=== PATIENT | male | born 1960 | race Caucasian/White ===

== ENCOUNTER 2019-12-18 14:17 | Outpatient (CLI) | payer OTHER, MEDICARE ==
[2019-12-18] MEDS ORDERED: UREA 10% -AHA 4% CREAM 57 GM TUBE ONE (14:48)
== END 2019-12-18 23:59 ==
LOC: WOU 14:17
PROVIDERS: ATTEND Podiatrist Foot & Ankle Surgery
DX: E11.40 Type 2 diabetes mellitus with diabetic neuropathy, unspecified (principal); E11.51 Type 2 diabetes mellitus with diabetic peripheral angiopathy without gangrene; Z79.4 Long term (current) use of insulin; B35.1 Tinea unguium
CPT/HCPCS: 82962; G0463

== ENCOUNTER 2020-02-11 09:50 | Outpatient (CLI) | payer MEDICARE ==
[2020-02-11 11:26] LABS: BASOPHILS % (AUTO) 0.7 % (0.0-2.0); EOSINOPHILS % (AUTO) 1.9 % (0.0-6.0); HEMATOCRIT 40 % (39-51); HEMOGLOBIN 13.3 g/dL (13.5-17.5); LYMPHOCYTES % (AUTO) 16.8 % (20.0-44.0); MEAN CORPUSCULAR HGB CONC 33 g/dl (31.0-36.0); MEAN CORPUSCULAR VOLUME 89 fL (80-96); MONOCYTES # (AUTO) 0.5 /CMM (0.1-1.30); MONOCYTES % (AUTO) 8.4 % (2.0-12.0); NEUTROPHILS # (AUTO) 4.5 /CMM (1.8-8.9); NEUTROPHILS % (AUTO) 72.2 % (43.0-81.0); PLATELET COUNT (AUTO) 311 /CMM (150-450); RED BLOOD CELL COUNT(AUTO) 4.49 MIL/uL (4.5-6.0); WHITE BLOOD COUNT (AUTO) 6.2 K/uL (4.3-11.0)
[2020-02-11 11:46] LABS: APPEARANCE,URINE CLEAR (CLEAR); BILIRUBIN,URINE NEGATIVE (NEGATIVE); BLOOD, URINE TRACE-INTA Ery/uL (NEGATIVE); COLOR,URINE YELLOW (YELLOW); KETONES,URINE NEGATIVE (NEGATIVE); LEUKOCYTE ESTERASE ,URINE NEGATIVE (NEGATIVE); NITRITE, URINE NEGATIVE (NEGATIVE); PH,URINE 5.5 (5.0-8.0); PROTEIN,URINE 30 mg/dl (NEGATIVE); UGLUCOSE 500 MG/DL mg/dL (NEGATIVE); UROBILINOGEN,URINE 0.2 EU/dL (0.2)
[2020-02-11 12:04] LABS: URINE TOTAL PROTEIN 83.3 mg/dL (0-11.9)
[2020-02-11 12:07] LABS: BACTERIA,URINE None seen /HPF (None Seen); RBC,URINE 0-2 /HPF (0-2); SQUAMOUS EPITHELIAL CELL,UR Few /HPF (None Seen); WBC,URINE NONE SEEN /HPF (0-3)
[2020-02-11 12:26] LABS: C-REACTIVE PROTEIN 0.7 mg/dL (0.0-0.9); PROSTATE SPECIFIC ANTIGEN SCR 0.27 ng/mL (0.00-4.00); THYROID STIMULATING HORMONE 1.234 uIU/mL (0.358-3.74)
[2020-02-11 13:06] LABS: ALBUMIN 3.6 g/dL (3.4-5.0); BILIRUBIN,TOTAL 0.3 mg/dL (0.2-1.0); CALCIUM, SERUM 8.9 mg/dL (8.5-10.1); CREATININE 1.6 mg/dL (0.6-1.3); MAGNESIUM 2.3 mg/dL (1.8-2.4); PHOSPHORUS 3.3 mg/dL (2.5-4.9); POTASSIUM 3.7 mmol/L (3.5-5.1); TOTAL PROTEIN, SERUM 7.7 g/dL (6.4-8.2)
[2020-02-12 06:06] LABS: FOLIC ACID > 20.0 ng/mL (>3.0)
== END 2020-02-11 23:59 | disposition home or self-care (01) ==
LOC: MSC 09:50
PROVIDERS: ATTEND Internal Medicine
DX: M17.12 Unilateral primary osteoarthritis, left knee (principal); H10.12 Acute atopic conjunctivitis, left eye; E11.9 Type 2 diabetes mellitus without complications; Z79.84 Long term (current) use of oral hypoglycemic drugs; I10 Essential (primary) hypertension; F20.9 Schizophrenia, unspecified; I73.9 Peripheral vascular disease, unspecified; K27.9 Peptic ulcer, site unspecified, unspecified as acute or chronic, without hemorrhage or perforation; Z85.46 Personal history of malignant neoplasm of prostate; Z86.73 Personal history of transient ischemic attack (TIA), and cerebral infarction without residual deficits; Z79.01 Long term (current) use of anticoagulants; Z79.899 Other long term (current) drug therapy
CPT/HCPCS: 36415; 73560; 80053; 80061; 81001; 82306; 82607; 82746; 83036; 83735; 84100; 84153; 84155; 84439; 84443; 85025; 85652; 86140; G0463; 81000-TC

== ENCOUNTER → 2020-02-23 | Outpatient (CLI) | payer MEDICARE | END | disposition home or self-care (01) | LOC: MSC 14:30 | PROVIDERS: ATTEND Anesthesiology | DX: M17.12 Unilateral primary osteoarthritis, left knee (principal); M54.5 Low back pain; M62.830 Muscle spasm of back; G89.4 Chronic pain syndrome; M79.2 Neuralgia and neuritis, unspecified; E11.9 Type 2 diabetes mellitus without complications; I10 Essential (primary) hypertension; Z79.891 Long term (current) use of opiate analgesic; Z79.1 Long term (current) use of non-steroidal anti-inflammatories (NSAID) ==

== ENCOUNTER 2020-05-03 09:55 | Outpatient (CLI) | payer MEDICARE | END 2020-05-03 23:59 | disposition home or self-care (01) | LOC: MSC 09:55 | PROVIDERS: ATTEND Anesthesiology | DX: M17.12 Unilateral primary osteoarthritis, left knee (principal); M54.5 Low back pain; M62.830 Muscle spasm of back; G89.4 Chronic pain syndrome; M79.2 Neuralgia and neuritis, unspecified; E11.9 Type 2 diabetes mellitus without complications; Z79.891 Long term (current) use of opiate analgesic; Z79.1 Long term (current) use of non-steroidal anti-inflammatories (NSAID) ==

== ENCOUNTER 2020-05-05 10:20 | Outpatient (CLI) | payer MEDICARE | END 2020-05-05 23:59 | disposition home or self-care (01) | LOC: MSC 10:20 | PROVIDERS: ATTEND Internal Medicine | DX: M17.12 Unilateral primary osteoarthritis, left knee (principal); E11.9 Type 2 diabetes mellitus without complications; Z79.84 Long term (current) use of oral hypoglycemic drugs; I10 Essential (primary) hypertension; Z86.73 Personal history of transient ischemic attack (TIA), and cerebral infarction without residual deficits; Z79.01 Long term (current) use of anticoagulants; F20.9 Schizophrenia, unspecified; I73.9 Peripheral vascular disease, unspecified; K27.9 Peptic ulcer, site unspecified, unspecified as acute or chronic, without hemorrhage or perforation; Z85.46 Personal history of malignant neoplasm of prostate ==

== ENCOUNTER 2020-06-21 10:16 | Outpatient (CLI) | payer MEDICARE | END 2020-06-21 23:59 | disposition home or self-care (01) | LOC: MSC 10:16 | PROVIDERS: ATTEND Anesthesiology | DX: M17.12 Unilateral primary osteoarthritis, left knee (principal); M25.561 Pain in right knee; M76.31 Iliotibial band syndrome, right leg; M76.32 Iliotibial band syndrome, left leg; M54.5 Low back pain; M62.830 Muscle spasm of back; G89.4 Chronic pain syndrome; M79.2 Neuralgia and neuritis, unspecified; Z79.891 Long term (current) use of opiate analgesic; Z79.1 Long term (current) use of non-steroidal anti-inflammatories (NSAID) | CPT/HCPCS: 73560 ×2; G0463 ==

== ENCOUNTER 2020-06-28 08:50 | Outpatient (CLI) | payer MEDICARE | END 2020-06-28 23:59 | disposition home or self-care (01) | LOC: MSC 08:50 | PROVIDERS: ATTEND Anesthesiology | DX: M17.12 Unilateral primary osteoarthritis, left knee (principal); M54.5 Low back pain; M62.830 Muscle spasm of back; G89.4 Chronic pain syndrome; M79.2 Neuralgia and neuritis, unspecified; M76.31 Iliotibial band syndrome, right leg; M76.32 Iliotibial band syndrome, left leg; Z79.891 Long term (current) use of opiate analgesic; Z79.1 Long term (current) use of non-steroidal anti-inflammatories (NSAID) ==

== ENCOUNTER 2020-07-26 09:59 | Outpatient (CLI) | payer MEDICARE ==
[2020-07-26] MEDS ORDERED: APIX5TAB4 PO (13:26)
== END 2020-07-26 23:59 | disposition home or self-care (01) ==
LOC: MSC 09:59
PROVIDERS: ATTEND Anesthesiology
DX: M17.12 Unilateral primary osteoarthritis, left knee (principal); M76.32 Iliotibial band syndrome, left leg; M76.31 Iliotibial band syndrome, right leg; G89.4 Chronic pain syndrome; M79.2 Neuralgia and neuritis, unspecified; M54.5 Low back pain; M62.830 Muscle spasm of back; Z98.61 Coronary angioplasty status; Z79.1 Long term (current) use of non-steroidal anti-inflammatories (NSAID); Z79.891 Long term (current) use of opiate analgesic

== ENCOUNTER 2020-07-26 11:32 | Emergency (ER) | payer MEDICARE ==
[~2020-07-26] VITALS: Ht 162.6 cm; Wt 99.8 kg
--- NOTE | 2020-07-26 11:55 | NUR ---
BIBS TO ER BED 7. AAOX4. NOT IN RESP DISTRESS. AMBULATORY WITH A LIMP. CAME IN FOR A LEFT CALF PAIN THAT HAS BEEN GOING ON FOR MONTHS, PT DOES NOT EXACTLY KNOW HOW MANY. AGGREVATED WHEN WALKING AND TOUCHING. WAS AT THE BEDSIDE FOR EVAL. ORDERS RECEIVED.
--- NOTE | 2020-07-26 12:20 | NUR ---
US AT BEDSIDE
[2020-07-26 12:38] LABS: BASOPHILS # (AUTO) 0.1 /CMM (0.0-0.2); BASOPHILS % (AUTO) 1.1 % (0.0-2.0); EOSINOPHILS % (AUTO) 2.6 % (0.0-6.0); HEMATOCRIT 41 % (39-51); HEMOGLOBIN 13.4 g/dL (13.5-17.5); LYMPHOCYTES % (AUTO) 15.8 % (20.0-44.0); MEAN CORPUSCULAR HGB CONC 33 g/dl (31.0-36.0); MEAN CORPUSCULAR VOLUME 91 fL (80-96); MONOCYTES # (AUTO) 0.5 /CMM (0.1-1.30); MONOCYTES % (AUTO) 7.5 % (2.0-12.0); NEUTROPHILS # (AUTO) 4.8 /CMM (1.8-8.9); PLATELET COUNT (AUTO) 287 /CMM (150-450); RED BLOOD CELL COUNT(AUTO) 4.51 MIL/uL (4.5-6.0); WHITE BLOOD COUNT (AUTO) 6.6 K/uL (4.3-11.0)
--- NOTE | 2020-07-26 12:52 | NUR ---
DR. KEITH PAGED AT [phone]. AWAITING FOR CALL BACK.
[2020-07-26] MEDS ORDERED: APIX5TAB4 PO (13:26)
[2020-07-26 13:33] LABS: CREATININE 1.5 mg/dL (0.6-1.3); POTASSIUM 4.4 mmol/L (3.5-5.1)
--- NOTE | 2020-07-26 14:04 | NUR ---
Patient discharged to home in stable condition. Written and verbal after care instructions given. Patient verbalizes understanding of instruction. Pt ambulatory with a steady gait w/ an aide of a cane.
[2020-07-26 14:05] VITALS: BP 141/81
== END 2020-07-26 14:05 | disposition home or self-care (01) ==
LOC: ER 11:32
DX: I82.432 Acute embolism and thrombosis of left popliteal vein (principal); I10 Essential (primary) hypertension; E78.5 Hyperlipidemia, unspecified; E11.9 Type 2 diabetes mellitus without complications; Z79.899 Other long term (current) drug therapy
CPT/HCPCS: 36415; 80048-TC; 85025-TC; 85378-TC; 85652-TC; 86140-TC; 93970-TC

== ENCOUNTER 2020-08-18 10:46 | Outpatient (CLI) | payer MEDICARE ==
[~2020-08-18 10:46] MED LIST: APIX5TAB4 PO
[2020-08-18 12:10] LABS: BASOPHILS # (AUTO) 0.1 /CMM (0.0-0.2); BASOPHILS % (AUTO) 0.7 % (0.0-2.0); EOSINOPHILS % (AUTO) 1.5 % (0.0-6.0); HEMATOCRIT 42 % (39-51); HEMOGLOBIN 13.5 g/dL (13.5-17.5); LYMPHOCYTES # (AUTO) 0.7 /CMM (0.8-4.8); LYMPHOCYTES % (AUTO) 9.2 % (20.0-44.0); MEAN CORPUSCULAR HGB CONC 32 g/dl (31.0-36.0); MEAN CORPUSCULAR VOLUME 93 fL (80-96); MONOCYTES # (AUTO) 0.5 /CMM (0.1-1.30); MONOCYTES % (AUTO) 7.1 % (2.0-12.0); NEUTROPHILS % (AUTO) 81.5 % (43.0-81.0); PLATELET COUNT (AUTO) 282 /CMM (150-450); WHITE BLOOD COUNT (AUTO) 7.4 K/uL (4.3-11.0)
[2020-08-18 13:26] LABS: ALBUMIN 4.1 g/dL (3.4-5.0); BILIRUBIN,TOTAL 0.4 mg/dL (0.2-1.0); CREATININE 1.7 mg/dL (0.6-1.3); MAGNESIUM 2.5 mg/dL (1.8-2.4); PHOSPHORUS 4.2 mg/dL (2.5-4.9); POTASSIUM 5.1 mmol/L (3.5-5.1); TOTAL PROTEIN, SERUM 8.4 g/dL (6.4-8.2)
== END 2020-08-18 23:59 | disposition home or self-care (01) ==
LOC: MSC 10:46
PROVIDERS: ATTEND Internal Medicine
DX: S91.301A Unspecified open wound, right foot, initial encounter (principal); M17.12 Unilateral primary osteoarthritis, left knee; E11.9 Type 2 diabetes mellitus without complications; Z79.84 Long term (current) use of oral hypoglycemic drugs; I10 Essential (primary) hypertension; F20.0 Paranoid schizophrenia; K27.9 Peptic ulcer, site unspecified, unspecified as acute or chronic, without hemorrhage or perforation; I73.9 Peripheral vascular disease, unspecified; Z79.01 Long term (current) use of anticoagulants; Z85.46 Personal history of malignant neoplasm of prostate; Z86.73 Personal history of transient ischemic attack (TIA), and cerebral infarction without residual deficits; Z79.899 Other long term (current) drug therapy
CPT/HCPCS: 36415; 80053; 80061; 82607; 82746; 83036; 83735; 84100; 85025; G0463

== ENCOUNTER 2020-08-22 10:14 | Outpatient (CLI) | payer MEDICARE, MEDICAID | END 2020-08-22 23:59 | disposition home or self-care (01) | LOC: RAD 10:14 | PROVIDERS: ATTEND Podiatrist Foot & Ankle Surgery | DX: I70.201 Unspecified atherosclerosis of native arteries of extremities, right leg (principal); R60.0 Localized edema | CPT/HCPCS: 73630-TC ==

== ENCOUNTER 2020-09-20 09:06 | Outpatient (CLI) | payer MEDICARE, OTHER | END 2020-09-20 23:59 | disposition home or self-care (01) | LOC: MSC 09:06 | PROVIDERS: ATTEND Internal Medicine | DX: I82.4Z2 Acute embolism and thrombosis of unspecified deep veins of left distal lower extremity (principal); Z79.01 Long term (current) use of anticoagulants; K59.00 Constipation, unspecified; M17.12 Unilateral primary osteoarthritis, left knee; E11.9 Type 2 diabetes mellitus without complications; Z79.84 Long term (current) use of oral hypoglycemic drugs; E78.5 Hyperlipidemia, unspecified; I10 Essential (primary) hypertension; Z86.73 Personal history of transient ischemic attack (TIA), and cerebral infarction without residual deficits; F20.9 Schizophrenia, unspecified; Z85.46 Personal history of malignant neoplasm of prostate; H10.10 Acute atopic conjunctivitis, unspecified eye; K27.9 Peptic ulcer, site unspecified, unspecified as acute or chronic, without hemorrhage or perforation; Z79.899 Other long term (current) drug therapy ==

== ENCOUNTER 2020-09-27 09:00 | Outpatient (CLI) | payer MEDICARE, OTHER | END 2020-09-27 23:59 | disposition home or self-care (01) | LOC: MSC 09:00 | PROVIDERS: ATTEND Anesthesiology | DX: M17.12 Unilateral primary osteoarthritis, left knee (principal); M76.31 Iliotibial band syndrome, right leg; M76.32 Iliotibial band syndrome, left leg; G89.4 Chronic pain syndrome; M79.2 Neuralgia and neuritis, unspecified; M54.5 Low back pain; M62.830 Muscle spasm of back; Z95.5 Presence of coronary angioplasty implant and graft; Z79.01 Long term (current) use of anticoagulants; Z89.421 Acquired absence of other right toe(s); Z79.891 Long term (current) use of opiate analgesic; Z79.1 Long term (current) use of non-steroidal anti-inflammatories (NSAID); Z87.891 Personal history of nicotine dependence ==

== ENCOUNTER 2020-11-08 12:15 | Outpatient (CLI) | payer MEDICARE, OTHER | END 2020-11-08 23:59 | disposition home or self-care (01) | LOC: MSC 12:15 | PROVIDERS: ATTEND Anesthesiology | DX: G89.4 Chronic pain syndrome (principal); M76.31 Iliotibial band syndrome, right leg; M76.32 Iliotibial band syndrome, left leg; M79.2 Neuralgia and neuritis, unspecified; M17.12 Unilateral primary osteoarthritis, left knee; M62.830 Muscle spasm of back; M54.5 Low back pain; Z79.891 Long term (current) use of opiate analgesic; Z79.1 Long term (current) use of non-steroidal anti-inflammatories (NSAID) ==

== ENCOUNTER 2021-03-07 10:59 | Outpatient (CLI) | payer MEDICARE, OTHER | END 2021-03-07 23:59 | disposition home or self-care (01) | LOC: MSC 10:59 | PROVIDERS: ATTEND Anesthesiology | DX: G89.4 Chronic pain syndrome (principal); M54.50 Low back pain, unspecified; M62.830 Muscle spasm of back; M76.31 Iliotibial band syndrome, right leg; M76.32 Iliotibial band syndrome, left leg; M17.12 Unilateral primary osteoarthritis, left knee; Z79.891 Long term (current) use of opiate analgesic; M79.2 Neuralgia and neuritis, unspecified; Z89.421 Acquired absence of other right toe(s); Z98.61 Coronary angioplasty status; Z79.01 Long term (current) use of anticoagulants; Z87.891 Personal history of nicotine dependence ==

== ENCOUNTER 2021-04-04 08:38 | Outpatient (CLI) | payer MEDICARE, OTHER | END 2021-04-04 23:59 | disposition home or self-care (01) | LOC: MSC 08:38 | PROVIDERS: ATTEND Anesthesiology | DX: G89.4 Chronic pain syndrome (principal); M54.50 Low back pain, unspecified; M62.830 Muscle spasm of back; M76.31 Iliotibial band syndrome, right leg; M76.32 Iliotibial band syndrome, left leg; M17.12 Unilateral primary osteoarthritis, left knee; M79.2 Neuralgia and neuritis, unspecified; Z76.0 Encounter for issue of repeat prescription; Z79.891 Long term (current) use of opiate analgesic; Z89.421 Acquired absence of other right toe(s); Z98.61 Coronary angioplasty status; Z79.01 Long term (current) use of anticoagulants; Z87.891 Personal history of nicotine dependence ==

== ENCOUNTER 2022-01-11 00:30 | Inpatient (IN) | payer MEDICARE, OTHER ==
[~2022-01-11] VITALS: Ht 172.7 cm; Wt 69.4 kg
--- NOTE | 2022-01-11 00:45 | NUR ---
BIBRA 78 FOR C/O MORE ALTERED THAN NORMAL +NOT VERBAL. PT HAS ENCEPHOLOPATHY +TRACH AT BASELINE, HOW IS NORMALY VERBAL AT BASELINE. PT GCS OF 9 ([id number]) OPENS EYES SPONTANEOUSLY AND RESPONDS TO PAINFUL STIMULI. PT TOLERATING ROOM AIR WELL. CHANGED INTO GOWN AND PLACED ON MONITOR AND V/S WNL. WAS AT BEDSIDE FOR EVAL.
--- NOTE | 2022-01-11 00:47 | NUR ---
DECISION UNIT RN AT BEDSIDE
--- NOTE | 2022-01-11 00:53 | NUR ---
EMT AT BEDSIDE FOR EKG
--- NOTE | 2022-01-11 00:53 | NUR ---
URINE COLLECTED AND SENT TO LAB
--- NOTE | 2022-01-11 00:54 | NUR ---
POC BG 103
--- NOTE | 2022-01-11 01:17 | NUR ---
FORD COLLECTED AND SENT TO LAB
--- NOTE | 2022-01-11 01:22 | NUR ---
PT BEING TRANSPORTED TO CT VIA [facility]
[2022-01-11 01:26] LABS: BASOPHILS # (AUTO) 0.1 K/uL (0.0-0.2); BASOPHILS % (AUTO) 1.2 % (0.0-2.0); EOSINOPHILS % (AUTO) 5.4 % (0.0-6.0); HEMATOCRIT 36 % (39-51); HEMOGLOBIN 11.4 g/dL (13.5-17.5); LYMPHOCYTES # (AUTO) 1.4 K/uL (0.8-4.8); LYMPHOCYTES % (AUTO) 16.8 % (20.0-44.0); MEAN CORPUSCULAR HGB CONC 32 g/dl (31.0-36.0); MEAN CORPUSCULAR VOLUME 86 fL (80-96); MONOCYTES # (AUTO) 0.6 K/uL (0.1-1.30); MONOCYTES % (AUTO) 6.8 % (2.0-12.0); NEUTROPHILS # (AUTO) 5.8 K/uL (1.8-8.9); NEUTROPHILS % (AUTO) 69.8 % (43.0-81.0); PLATELET COUNT (AUTO) 425 K/uL (150-450); RED BLOOD CELL COUNT(AUTO) 4.15 MIL/uL (4.5-6.0); WHITE BLOOD COUNT (AUTO) 8.3 K/uL (4.3-11.0)
[2022-01-11 01:32] LABS: BILIRUBIN,URINE NEGATIVE (NEGATIVE); COLOR,URINE YELLOW (YELLOW); LEUKOCYTE ESTERASE ,URINE NEGATIVE (NEGATIVE); NITRITE, URINE NEGATIVE (NEGATIVE); PROTEIN,URINE TRACE mg/dl (NEGATIVE); UGLUCOSE NEGATIVE (NEGATIVE)
[2022-01-11 01:37] LABS: CALCIUM, SERUM 9.7 mg/dL (8.5-10.1); CARBON DIOXIDE 32 mmol/L (21-32); CHLORIDE 96 mmol/L (98-107); CREATININE 1.2 mg/dL (0.6-1.3); GLUCOSE 109 mg/dL (74-106); POTASSIUM 4.2 mmol/L (3.5-5.1); SODIUM SERUM 133 mmol/L (136-145); UREA NITROGEN, BLOOD 28 mg/dL (7-18)
--- NOTE | 2022-01-11 01:37 | NUR ---
BACK FROM CT
--- NOTE | 2022-01-11 01:49 | NUR ---
LACTIC 2.9. MADE AWARE.
[2022-01-11] MEDS ORDERED: CEFTRIAXONE 1GM BAG (ER ONLY) 50 ML IV ONE (01:51)
[2022-01-11 01:52] LABS: ALANINE AMINOTRANSFERASE 25 U/L (12-78); ALKALINE PHOSPHATASE 59 U/L (46-116); ASPARTATE AMINOTRANSFERASE 13 U/L (15-37); BILIRUBIN,DIRECT 0.1 mg/dL (0.0-0.2); BILIRUBIN,TOTAL 0.3 mg/dL (0.2-1.0)
[2022-01-11] MEDS ORDERED: CEFTRIAXONE 1GM BAG (ER ONLY) 1 GM/50 ML PIGGYBACK IV ONE (02:00)
[2022-01-11] MEDS ORDERED: AZITHROMYCIN 500 MG in IV D5W 250 ML IV ONE (02:00)
[2022-01-11] MEDS ORDERED: AZITHROMYCIN 500 MG VIAL ONE (02:02)
[2022-01-11] MEDS ORDERED: ONDANSETRON HCL/PF 4 MG/2 ML VIAL ONE (02:16)
[2022-01-11] MEDS ORDERED: ONDANSETRON HCL/PF 4 MG/2 ML VIAL IV ONE (02:30)
--- NOTE | 2022-01-11 03:09 | NUR ---
DR Elizabet LOVETT PAGED PER DR AYALA.
[2022-01-11] MEDS ORDERED: ASPI-1169 GT (03:16)
[2022-01-11] MEDS ORDERED: HEPA50007 SQ (03:34)
[2022-01-11] MEDS ORDERED: BISA10SU61 RC (03:34)
[2022-01-11] MEDS ORDERED: LATA2.5D2 EACHEYE (03:34)
[2022-01-11] MEDS ORDERED: CRAN3875 GT (03:34)
[2022-01-11] MEDS ORDERED: CHLO473M3 PO (03:34)
[2022-01-11] MEDS ORDERED: METO-295 GT (03:34)
[2022-01-11] MEDS ORDERED: IPRA4AER IH ×2 (03:34)
[2022-01-11] MEDS ORDERED: LEVE1000 GT (03:34)
[2022-01-11] MEDS ORDERED: METF-440 GT (03:34)
[2022-01-11] MEDS ORDERED: ATOR40TA GT (03:34)
[2022-01-11] MEDS ORDERED: INSU100V7 SQ (03:34)
[2022-01-11] MEDS ORDERED: QUET50TA GT (03:34)
[2022-01-11] MEDS ORDERED: LORA-259 GT (03:34)
[2022-01-11] MEDS ORDERED: LANS30CA54 GT (03:34)
[2022-01-11] MEDS ORDERED: INSU100V11 SQ (03:34)
[2022-01-11] MEDS ORDERED: NA P133E RC (03:34)
[2022-01-11] MEDS ORDERED: DOCU50LI GT (03:34)
[2022-01-11] MEDS ORDERED: LINA5TAB GT (03:34)
[2022-01-11] MEDS ORDERED: ASCO500C18 GT (03:34)
[2022-01-11] MEDS ORDERED: ACET-2605 GT (03:34)
[2022-01-11] MEDS ORDERED: METO50TA16 GT (03:34)
[2022-01-11] MEDS ORDERED: ACET325T53 GT ×2 (03:34)
[2022-01-11] MEDS ORDERED: LACO100T2 GT (03:34)
[2022-01-11] MEDS ORDERED: MAGN400O21 GT (03:34)
[2022-01-11] MEDS ORDERED: ONDA4TAB5 GT (03:34)
--- NOTE | 2022-01-11 06:13 | NUR ---
RT AT BEDSIDE
--- NOTE | 2022-01-11 08:00 | NUR ---
ASSUME CARE, DROWSY BUT EASILY ARISE.
--- NOTE | 2022-01-11 09:42 | NUR ---
NO DISTRESS NOTED, TRACH CARE PROVIDED AND SUCTION MOD AMT OF THICK YELLOWISH SECRETIONS.HOB ELEVATED AND MAINTAIN SAFE ENVIRONMENT
--- NOTE | 2022-01-11 12:00 | NUR ---
ADMITTED AND AWAITING BED AVAIL., RENDER PERICARE, SUCTION VIA TRACH AND ORAL CARE PROVIDED.
[2022-01-11] MEDS ORDERED: PIPERACILLIN /TAZOBACTAM 3.375 G VIAL IV ONE ×2 (13:15→23:52)
[2022-01-11] MEDS: ZOSYN IVPB 3.375 G in IV D5W 50ml IV SCH ×3 (13:29→23:57)
--- NOTE | 2022-01-11 13:30 | NUR ---
PHARMACIST NOTIFIED VANCOMYCIN NOT AVAIL.
[2022-01-11] MEDS ORDERED: VANCOMYCIN 1.5 GM in IV D5W 500ml IV ONE (14:00)
[2022-01-11 14:15] LABS: ABG BASE EXCESS 4.3 mmol/L; ABG PCO2 38.5 mmHg (35.0-45.0); ABG PH 7.479 (7.350-7.450); ABG PO2 139.3 mmHg (75.0-100.0); COHb 0.3 % (0.5-1.5); MetHb 0.3 % (0.0-1.5); O2Hb 98.1 % (94.0-97.0); SITE, ABG Right Radial; VENT MODE, BG TBAR 2L INLINE
--- NOTE | 2022-01-11 18:45 | NUR ---
GOT BED 304-2
--- NOTE | 2022-01-11 19:41 | NUR ---
REPORTED OFF TO INCOMING RN ASSUMING CARE.
--- NOTE | 2022-01-11 20:00 | NUR ---
REPORT GIVEN RALPH BLAKELY FOR SARWAT
[2022-01-11 20:09] VITALS: BP 150/93
[2022-01-11] MEDS ORDERED: NA PHOS,M-B/NA PHOS,DI-BA 1 EA ENEMA RC PRN (21:00)
[2022-01-11] MEDS ORDERED: LORAZEPAM 1 MG TABLET GT PRN (21:00)
[2022-01-11] MEDS ORDERED: MAGNESIUM HYDROXIDE 30 ML UDC GT PRN (21:00)
[2022-01-11] MEDS ORDERED: ACETAMINOPHEN ES 500 MG TABLET GT PRN (21:00)
[2022-01-11] MEDS ORDERED: BISACODYL SUPP (10 MG) 10 MG/SUPP.RECT SUPP.RECT RC PRN (21:00)
[2022-01-11] MEDS ORDERED: IPRATROPIUM/ALBUTEROL INHALER IH PRN (21:30)
[2022-01-11] MEDS ORDERED: ONDANSETRON 4 MG TAB.RAPDIS GT PRN (21:30)
--- NOTE | 2022-01-11 22:00 | NUR ---
ADMISSION NOTES PATIENT BROUGHT UP IN UNIT AT @2009 VIA STRETCHER ACCOMPANIED BY 2 ER PERSONNELS. T-PIECE (PORTEX 7) NOTED CONNECTED TO 2LPM OF O2 WITH AEROSOL. PATIENT IS A/OX2-3, NON-VERBAL BUT MOUTHS OUT WORDS AND NODS FOR COMMUNICATION. FOLLOWS COMMANDS. NO S/S OF APPARENT DISTRESS AND DENIES PAIN NOR DISCOMFORT FOR NOW. PER PATIENT HE USED TO SMOKE BUT DENIES DRINKING ALCOHOL. D/T PATIENT CONDITION I CALLED SISTER FOR FURTHER ADMISSION QUESTIONS. PER SISTER, DORI RAYMUNDO, # , THEY WISHED FOR PATIENT TO BE FULL CODE, AND PER HER PATIENT DOESN'T HAVE ANY LEGAL DOCUMENTATIONS AND NEED TO TALK TO [facility] ABOUT IT-- SW CONSULT FOR ADVANCED DIRECTIVE ORDERED. PER SISTER, PATIENT IS VACCINATED WITH COVID BUT UNSURE IF HE HAD THE BOOSTER SHOTS-- PER SISTER SHE WILL NEED TO F/U WITH SNF ABOUT BOOSTER, PNEUMONIA, AND FLU. PATIENT HAS G-TUBE IN PLACE INTACT AND PATENT. IV ACCESS ON L. FA #20G NOTED TO BE INTACT AND PATENT WELL. PATIENT SKIN INTACT WITH OLD SCAR ON HIS SACRAL AREA. ONLY BELONGINGS IS HIS HELMET. TELE MONITOR READING SR WITH 98 BPM. ORIENTED IN THE UNIT AND THE USE OF CALL LIGHT. SAFETY IN PLACE. ADMISSION V/S FOLLOWS: 150/93, HR-102, RR-19, T-98.6, SATURATION 95%, WT- 153.4 LBS. WILL FOLLOW THROUGH DOCTOR'S ORDERS AND CONTINUE WITH PLAN OF CARE FOR PATIENT.
[2022-01-11] MEDS: METOCLOPRAMIDE HCL 10 MG TABLET GT SCH (23:03)
[2022-01-11] MEDS: LEVETIRACETAM SOL (5 ML) 100 MG/ML UDC GT SCH (23:03)
[2022-01-11] MEDS: LACOSAMIDE ORAL SOLN 50 MG/5 ML UDC GT SCH (23:04)
[2022-01-11] MEDS: ATORVASTATIN 40 MG TABLET GT SCH (23:04)
[2022-01-11] MEDS: HEPARIN SODIUM, PORCINE 5000 UNITS/1 ML VIAL SQ SCH (23:05)
[2022-01-11] MEDS: INSULIN GLARGINE, 100 UNIT/ML CARTRIDGE SQ SCH (23:09)
[2022-01-11] MEDS: IV D5/ 0.9% NACL 1,000 ML IV PRN (23:14)
[2022-01-12] VITALS: BP 126/82
[2022-01-12] MEDS: IPRATROPIUM/ALBUTEROL INHALER IH SCH ×3 (01:30→13:30)
[2022-01-12] MEDS ORDERED: VANCOMYCIN 1 GM VIAL ONE (02:12)
[2022-01-12] MEDS: VANCOMYCIN 1 GM in IV D5W 250ml IV SCH ×2 (02:20→14:36)
[2022-01-12 04:00] VITALS: BP 149/95
[2022-01-12] MEDS ORDERED: PIPERACILLIN /TAZOBACTAM 3.375 G VIAL IV ONE (05:54)
[2022-01-12] MEDS: ZOSYN IVPB 3.375 G in IV D5W 50ml IV SCH ×3 (06:00→17:23)
[2022-01-12 06:32] LABS: BASOPHILS # (AUTO) 0.1 K/uL (0.0-0.2); BASOPHILS % (AUTO) 0.9 % (0.0-2.0); EOSINOPHILS % (AUTO) 3.3 % (0.0-6.0); HEMATOCRIT 34 % (39-51); HEMOGLOBIN 11.1 g/dL (13.5-17.5); LYMPHOCYTES # (AUTO) 1.3 K/uL (0.8-4.8); LYMPHOCYTES % (AUTO) 14.6 % (20.0-44.0); MEAN CORPUSCULAR HGB CONC 32 g/dl (31.0-36.0); MEAN CORPUSCULAR VOLUME 85 fL (80-96); MONOCYTES # (AUTO) 0.7 K/uL (0.1-1.30); MONOCYTES % (AUTO) 8.3 % (2.0-12.0); NEUTROPHILS # (AUTO) 6.4 K/uL (1.8-8.9); NEUTROPHILS % (AUTO) 72.9 % (43.0-81.0); PLATELET COUNT (AUTO) 482 K/uL (150-450); RED BLOOD CELL COUNT(AUTO) 4.06 MIL/uL (4.5-6.0); WHITE BLOOD COUNT (AUTO) 8.8 K/uL (4.3-11.0)
[2022-01-12 06:53] LABS: CALCIUM, SERUM 9.6 mg/dL (8.5-10.1); CREATININE 1.2 mg/dL (0.6-1.3); MAGNESIUM 2.2 mg/dL (1.8-2.4); PHOSPHORUS 3.4 mg/dL (2.5-4.9); POTASSIUM 3.8 mmol/L (3.5-5.1)
[2022-01-12] MEDS ORDERED: PREVACID (NF) 30 MG TAB GT SCH (07:30)
--- NOTE | 2022-01-12 07:46 | NUR ---
REPORT GIVEN TO REDDY CASTELLANOS FOR CONTINUITY OF CARE.
--- NOTE | 2022-01-12 07:48 | NUR ---
RN OPENING NOTES RECEIVED PATIENT IN BED, ASLEEP, EASILY AROUSED. NO SIGNS OF ACUTE DISTRESS NOTED. PATIENT NOTED WITH T-PIECE ON PERRY AEROSOL, NO SOB NOTED, BREATHING EVEN AND UNLABORED. DENIES PAIN AT THIS TIME. NOTED WITH IV ACCESS ON LEFT FORE ARM #22G, INTACT AND PATENT WITH D5NS @50 ML/HR RUNNING. ON TELE MONITOR SHOWING SINUS RHYTHM WITH BBB, HR @100. NO S/SX OF CARDIAC DISTRESS NOTED. WITH G-TUBE INTACT AND PATENT, POSITIVE PLACEMENT, NO RESIDUAL NOTED. ASPIRATIONS PRECAUTIONS IN PLACE. SAFETY MEASURE IN PLACE. HOB ELEVATED, BED IN LOWEST AND LOCKED POSITION, SIDE RAILS UP X4, CALL LIGHT PLACED WITHIN EASY REACH. WILL CONTINUE TO MONITOR PATIENT.
[2022-01-12 08:39] VITALS: BP 139/88
[2022-01-12] MEDS ORDERED: GLUCERNA 1.5 1,000 ML BOTTLE NG PRN (09:00)
[2022-01-12] MEDS: LACOSAMIDE ORAL SOLN 50 MG/5 ML UDC GT SCH ×2 (09:20→21:20)
[2022-01-12] MEDS: METFORMIN 500 MG TABLET GT SCH ×2 (09:21→16:40)
[2022-01-12] MEDS: LEVETIRACETAM SOL (5 ML) 100 MG/ML UDC GT SCH ×2 (09:21→21:19)
[2022-01-12] MEDS: LINAGLIPTIN 5 MG TABLET GT SCH (09:21)
[2022-01-12] MEDS: DOCUSATE SODIUM LIQ 100 MG/10 ML UDC GT SCH (09:21)
[2022-01-12] MEDS: METOCLOPRAMIDE HCL 10 MG TABLET GT SCH ×4 (09:21→21:20)
[2022-01-12] MEDS: QUETIAPINE FUMARATE 25 MG TABLET GT SCH ×2 (09:21→21:20)
[2022-01-12] MEDS: CHLORHEXIDINE GLUCONATE 15 ML UDC MM SCH ×2 (09:21→16:40)
[2022-01-12] MEDS: ASCORBIC ACID 500 MG TABLET GT SCH (09:22)
[2022-01-12] MEDS: ASPIRIN 81 MG TAB.CHEW GT SCH (09:22)
[2022-01-12] MEDS: METOPROLOL TARTRATE 50 MG TABLET GT SCH ×2 (09:22→16:40)
[2022-01-12] MEDS: HEPARIN SODIUM, PORCINE 5000 UNITS/1 ML VIAL SQ SCH ×2 (09:25→21:18)
[2022-01-12] MEDS ORDERED: GLUCERNA 1.2 1,000 ML BOTTLE GT PRN (09:30)
[2022-01-12] MEDS: PANTOPRAZOLE 40 MG/PACK PACK GT SCH (10:17)
[2022-01-12] MEDS: GLUCERNA 1.5 1,000 ML BOTTLE NG PRN (11:53)
[2022-01-12 12:10] VITALS: BP 141/78
--- NOTE | 2022-01-12 15:51 | NUR ---
RT PT DOESNT WANT TO WEAR COOL AEROSOL TBAR WANT TO BE ON ROOM AIR, [place] WE[place] SP02 > 94% WILL KEEP ON CA PRN
[2022-01-12 16:21] VITALS: BP 128/78
[2022-01-12] MEDS ORDERED: LATANOPROST EYE DROP 0.005% 2.5 ML BOTTLE EACHEYE SCH (18:00)
--- NOTE | 2022-01-12 18:42 | NUR ---
RN CLOSING NOTES PATIENT IN BED, ASLEEP, EASILY AROUSED. NO SIGNS OF ACUTE DISTRESS NOTED. PATIENT NOTED WITH T-PIECE(PORTEX 7) ON ROOM AIR. NO SOB NOTED, BREATHING EVEN AND UNLABORED. SUCTIONED SECRETIONS NEEDED. DENIED ANY PAIN OR DISCOMFORT. IV ACCESS ON LEFT FOREARM #20G, INTACT AND PATENT WITH D5NS @50 ML/HR RUNNING. ON TELE MONITOR SHOWING SINUS RHYTHM, HR @ 82. NO S/SX OF CARDIAC DISTRESS NOTED. WITH G-TUBE INTACT AND PATENT, POSITIVE PLACEMENT, NO RESIDUAL NOTED. GTUBE FEEDING OF GLUCERNA 1.5 @30ML/HR RUNNING, TOLERATING WELL. ASPIRATIONS PRECAUTIONS IN PLACE. SAFETY MEASURE IN PLACE. HOB ELEVATED, BED IN LOWEST AND LOCKED POSITION, SIDE RAILS UP X4, CALL LIGHT PLACED WITHIN EASY REACH. WILL ENDORSE TO NEXT SHIFT FOR CONTINUITY OF CARE.
--- NOTE | 2022-01-12 19:36 | NUR ---
RN OPENING NOTES RECEIVED PATIENT IN BED AOX2.WITH T-PIECE ON PERRY AEROSOL, NO SOB/DISTRESS NOTED,BREATHING EVEN AND UNLABORED.IV ACCESS ON RIGHT WRIST 20G INTACT AND PATENT WITH D5NS @50 ML/HR RUNNING. WITH G-TUBE FEEDING GLUCERNA 1.2 @30ML/HR [place] WELL.NO RESIDUAL NOTED. ASPIRATIONS PRECAUTIONS IN PLACE. SAFETY MEASURE IN PLACE. HOB ELEVATED, BED IN LOWEST AND LOCKED POSITION, SIDE RAILS UP X4, CALL LIGHT PLACED WITHIN EASY REACH. W
[2022-01-12 20:00] VITALS: BP 121/64
[2022-01-12] MEDS: ATORVASTATIN 40 MG TABLET GT SCH (21:20)
[2022-01-12] MEDS: INSULIN GLARGINE, 100 UNIT/ML CARTRIDGE SQ SCH (22:50)
[2022-01-13] VITALS: BP 122/81
[2022-01-13] MEDS: ZOSYN IVPB 3.375 G in IV D5W 50ml IV SCH ×5 (00:27→23:46)
[2022-01-13] MEDS: VANCOMYCIN 1 GM in IV D5W 250ml IV SCH (02:00)
--- NOTE | 2022-01-13 02:09 | NUR ---
RN NOTES; VANCOMYCIN HOLD DUE TO VANCO TROUGH LEVEL 23.
[2022-01-13] MEDS: IV D5/ 0.9% NACL 1,000 ML IV PRN (03:32)
[2022-01-13 04:00] VITALS: BP 135/77
[2022-01-13 06:12] LABS: BASOPHILS # (AUTO) 0.1 K/uL (0.0-0.2); EOSINOPHILS % (AUTO) 5.6 % (0.0-6.0); HEMATOCRIT 36 % (39-51); HEMOGLOBIN 11.4 g/dL (13.5-17.5); LYMPHOCYTES # (AUTO) 1.3 K/uL (0.8-4.8); LYMPHOCYTES % (AUTO) 20.3 % (20.0-44.0); MEAN CORPUSCULAR HGB CONC 32 g/dl (31.0-36.0); MEAN CORPUSCULAR VOLUME 86 fL (80-96); MONOCYTES # (AUTO) 0.6 K/uL (0.1-1.30); MONOCYTES % (AUTO) 9.1 % (2.0-12.0); NEUTROPHILS # (AUTO) 4.1 K/uL (1.8-8.9); PLATELET COUNT (AUTO) 441 K/uL (150-450); RED BLOOD CELL COUNT(AUTO) 4.17 MIL/uL (4.5-6.0); WHITE BLOOD COUNT (AUTO) 6.5 K/uL (4.3-11.0)
--- NOTE | 2022-01-13 06:15 | NUR ---
RN OPENING NOTES; PATIENT IN BED AOX2.WITH 2L O2 VIA TRACH ON PERRY AEROSOL [place] WELL,NO SOB/DISTRESS NOTED,BREATHING EVEN AND UNLABORED.DUE MEDS GIVEN ORDER,ALL NEEDS ATTENDED,IV ACCESS ON RIGHT WRIST 20G INTACT AND PATENT WITH D5NS @50 ML/HR RUNNING. WITH G-TUBE FEEDING GLUCERNA 1.2 @30ML/HR [place] WELL.NO RESIDUAL NOTED. ASPIRATIONS PRECAUTIONS IN PLACE.HOB ELEVATED AT ALL TIME,SAFETY MEASURE IN PLACE. BED IN LOWEST AND LOCKED POSITION, SIDE RAILS UP X4, CALL LIGHT PLACED WITHIN EASY REACH. WILL ENDORSED TO NEXT SHIFT.
[2022-01-13 06:45] LABS: CALCIUM, SERUM 9.5 mg/dL (8.5-10.1); CREATININE 1.2 mg/dL (0.6-1.3); MAGNESIUM 2.2 mg/dL (1.8-2.4); PHOSPHORUS 3.7 mg/dL (2.5-4.9); POTASSIUM 3.3 mmol/L (3.5-5.1)
--- NOTE | 2022-01-13 07:30 | NUR ---
RN OPENING NOTES RECEIVED PATIENT ON BED AWAKE AND A/O X2. ON ROOM AIR TOLERATING WELL. PATIENT REFUSED FOR COOL AEROSOL INHALATION. REFUSED TELE MONITOR. WITH NO COMPLAINTS OF PAIN OR DISCOMFORT AT THIS TIME. WITH IV ACCESS AT THE RIGHT WRIST G20, SALINE LOCKED, PATENT AND INTACT. ON GLUCERNA 1.2 FEEDING AT 50ML/HR VIA G-TUBE TOLERATING WELL. SAFETY MEASURES IN PLACED. CALL LIGHT WITHIN REACH. BED ON LOWEST LOCKED POSITION, SIDE RAILS UP X2. WILL CONTINUE TO MONITOR.
[2022-01-13 08:00] VITALS: BP 130/79
[2022-01-13] MEDS: CHLORHEXIDINE GLUCONATE 15 ML UDC MM SCH ×2 (08:24→16:45)
[2022-01-13] MEDS: DOCUSATE SODIUM LIQ 100 MG/10 ML UDC GT SCH (08:24)
[2022-01-13] MEDS: LEVETIRACETAM SOL (5 ML) 100 MG/ML UDC GT SCH ×2 (08:25→20:54)
[2022-01-13] MEDS: LINAGLIPTIN 5 MG TABLET GT SCH (08:26)
[2022-01-13] MEDS: METFORMIN 500 MG TABLET GT SCH ×2 (08:26→16:45)
[2022-01-13] MEDS: METOCLOPRAMIDE HCL 10 MG TABLET GT SCH ×4 (08:26→20:54)
[2022-01-13] MEDS: PANTOPRAZOLE 40 MG/PACK PACK GT SCH (08:27)
[2022-01-13] MEDS: ASPIRIN 81 MG TAB.CHEW GT SCH (08:27)
[2022-01-13] MEDS: QUETIAPINE FUMARATE 25 MG TABLET GT SCH ×2 (08:27→20:54)
[2022-01-13] MEDS: ASCORBIC ACID 500 MG TABLET GT SCH (08:27)
[2022-01-13] MEDS: LACOSAMIDE ORAL SOLN 50 MG/5 ML UDC GT SCH ×2 (08:27→20:54)
[2022-01-13] MEDS: METOPROLOL TARTRATE 50 MG TABLET GT SCH ×2 (08:27→16:46)
[2022-01-13] MEDS: HEPARIN SODIUM, PORCINE 5000 UNITS/1 ML VIAL SQ SCH ×2 (08:30→20:56)
[2022-01-13] MEDS ORDERED: ALBUTEROL FS 2.5 MG/0.5 ML VIAL.NEB NEB PRN (09:00)
[2022-01-13 09:48] LABS: BILIRUBIN,DIRECT 0.1 mg/dL (0.0-0.2); BILIRUBIN,TOTAL 0.3 mg/dL (0.2-1.0)
[2022-01-13] MEDS: VANCOMYCIN HCL 0.75 GM in IV D5W 250 ML IV SCH ×2 (11:03→21:54)
[2022-01-13] MEDS: POTASSIUM CHLORIDE 20 MEQ POWDER PACKET GT SCH ×2 (12:19→14:25)
[2022-01-13] MEDS ORDERED: IPRATROPIUM NEB FS 0.5 MG/2.5 ML AMPUL.NEB NEB SCH (13:30)
[2022-01-13] MEDS: ALBUTEROL FS 2.5 MG/0.5 ML VIAL.NEB NEB SCH ×2 (13:43→19:30)
--- NOTE | 2022-01-13 14:03 | NUR ---
PATIENT NOT ALLOWING C/A BUT ALLOWED ME TO GIVE TREATMENT. PATIENT WERE FOUND ON R/A RESTING COMFORTABLY Addendum: 01/13/22 at 1404 by MORRO MCPHERSON RT Amended: Links added.
[2022-01-13 15:49] VITALS: BP 137/75
[2022-01-13] MEDS: GLUCERNA 1.5 1,000 ML BOTTLE NG PRN (17:35)
[2022-01-13] MEDS: LATANOPROST EYE DROP 0.005% 2.5 ML BOTTLE EACHEYE SCH (18:00)
--- NOTE | 2022-01-13 18:22 | NUR ---
TRACTOR OPERATOR BATTERY CLOSING NOTES RECEIVED PATIENT ON BED AWAKE AND A/O X2. ON ROOM AIR TOLERATING WELL. PATIENT REFUSED FOR COOL AEROSOL INHALATION. ON TELE MONITOR CURRENTLY READING SINUS RHYTHM AT 84BPM. WITH NO COMPLAINTS OF PAIN OR DISCOMFORT AT THIS TIME. WITH IV ACCESS AT THE RIGHT WRIST G20 WITH IVF D5 NS AT 50ML/HR INFUSING WELL. ON GLUCERNA 1.2 FEEDING AT 60ML/HR VIA G-TUBE TOLERATING WELL. DUE MEDS GIVEN. SAFETY MEASURES IN PLACED. CALL LIGHT WITHIN REACH. BED ON LOWEST LOCKED POSITION, SIDE RAILS UP X2. WILL ENDORSE TO NEXT SHIFT FOR SARWAT.
[2022-01-13 20:00] VITALS: BP 141/67
--- NOTE | 2022-01-13 20:00 | NUR ---
RECEIVED PATIENT IN BED, ALERT/ORIENTED X1, GARBLED SPEECH DUE TO TRACH, REFUSING 2LPM VIA T-PIECE, COMBATIVE, UNCOOPERATIVE, HOSTILE, HITTING STAFF, PEG TUBE FEEDING, GLUCERNA 1.5 AT 55 ML/HR, GOAL IS 60 ML/HR, CHECKED PLACEMENT, ZERO RESIDUAL. TOLERATING ROOM AIR, 97% SPO2, SUCTIONED PRN, THICK SPUTUM. KEPT HOB ELEVATED, ASPIRATION PRECAUTION, FALL PRECAUTION, WILL CONTINUE TO MONITOR.
[2022-01-13] MEDS: ATORVASTATIN 40 MG TABLET GT SCH (21:11)
[2022-01-13] MEDS ORDERED: INSULIN GLARGINE, 100 UNIT/ML CARTRIDGE SQ ONE (23:06)
[2022-01-13] MEDS: INSULIN GLARGINE, 100 UNIT/ML CARTRIDGE SQ SCH (23:29)
[2022-01-14] VITALS: BP 122/65
[2022-01-14] MEDS: ALBUTEROL FS 2.5 MG/0.5 ML VIAL.NEB NEB SCH ×4 (01:30→20:13)
[2022-01-14 04:00] VITALS: BP 136/78
[2022-01-14] MEDS: ZOSYN IVPB 3.375 G in IV D5W 50ml IV SCH (06:10)
[2022-01-14 06:30] LABS: CALCIUM, SERUM 9.2 mg/dL (8.5-10.1); CREATININE 1.1 mg/dL (0.6-1.3); POTASSIUM 3.6 mmol/L (3.5-5.1)
--- NOTE | 2022-01-14 07:27 | NUR ---
ALERT/ORIENTED X2, REFUSING 2LPM VIA COOL AEROSOL, SPO2 AT ROOM AIR 96%,TRACH, PORTEX 7. REFUSING BREATHING TREATMENT, GLUCERNA AT 60 ML/HR, ACHIEVED GOAL, FEEDING TOLERATING WELL, NO RESIDUAL, COMBATIVE AT TIMES, PULLING IV LINE AND PEG TUBE, BILATERAL MITTENS APPLIED. CONTINUE RESTRAINTS MONITORING, VANCOMYCIN AND ZOSYN, D5NS AT 50 ML/HR, FALL PRECAUTION, ASPIRATION PRECAUTION, SUCTION PRN.
--- NOTE | 2022-01-14 07:45 | NUR ---
RN OPENING NOTES RECEIVED PATIENT ON BED ASLEEP, A/O X1. ON ROOM AIR TOLERATING WELL, O2 SAT 96%. PATIENT REFUSED FOR COOL AEROSOL INHALATION. NO COMPLAINTS OF PAIN OR DISCOMFORT AT THIS TIME. TELE MONITOR READING SR -98BPM. IV ACCESS AT THE RIGHT WRIST G20, RUNNING D5NS @ 50ML/HR. ON GLUCERNA 1.2 FEEDING AT 60ML/HR VIA G-TUBE TOLERATING WELL. SAFETY MEASURES IN PLACE; CALL LIGHT WITHIN REACH. BED ON LOWEST LOCKED POSITION, SIDE RAILS UP X2. WILL CONTINUE WITH PLAN OF CARE. Addendum: 01/14/22 at 1101 by DEAN ENG RN PAIN ASSESSED USING FLACC, 0/10
[2022-01-14 08:00] VITALS: BP 130/73
[2022-01-14] MEDS: VANCOMYCIN HCL 0.75 GM in IV D5W 250 ML IV SCH (08:42)
[2022-01-14] MEDS: QUETIAPINE FUMARATE 25 MG TABLET GT SCH ×2 (08:43→21:38)
[2022-01-14] MEDS: CHLORHEXIDINE GLUCONATE 15 ML UDC MM SCH ×2 (08:43→16:23)
[2022-01-14] MEDS: ASPIRIN 81 MG TAB.CHEW GT SCH (08:44)
[2022-01-14] MEDS: ASCORBIC ACID 500 MG TABLET GT SCH (08:44)
[2022-01-14] MEDS: LEVETIRACETAM SOL (5 ML) 100 MG/ML UDC GT SCH ×2 (08:44→21:38)
[2022-01-14] MEDS: DOCUSATE SODIUM LIQ 100 MG/10 ML UDC GT SCH (08:44)
[2022-01-14] MEDS: METOCLOPRAMIDE HCL 10 MG TABLET GT SCH ×4 (08:44→21:38)
[2022-01-14] MEDS: LINAGLIPTIN 5 MG TABLET GT SCH (08:44)
[2022-01-14] MEDS: METOPROLOL TARTRATE 50 MG TABLET GT SCH ×2 (08:47→16:25)
[2022-01-14] MEDS: METFORMIN 500 MG TABLET GT SCH ×2 (08:49→16:23)
[2022-01-14] MEDS: HEPARIN SODIUM, PORCINE 5000 UNITS/1 ML VIAL SQ SCH ×2 (08:52→21:48)
[2022-01-14] MEDS: PANTOPRAZOLE 40 MG/PACK PACK GT SCH (09:38)
[2022-01-14 12:00] VITALS: BP 121/69
[2022-01-14] MEDS: LACOSAMIDE ORAL SOLN 50 MG/5 ML UDC GT SCH ×2 (12:30→21:57)
--- NOTE | 2022-01-14 12:41 | NUR ---
MS RN NOTES: RETURNED EXTRA DOSE OF LACOSAMIDE WITH RN WITNESS.
[2022-01-14] MEDS: IV D5/ 0.9% NACL 1,000 ML IV PRN (13:32)
[2022-01-14 17:00] VITALS: BP 109/64
[2022-01-14] MEDS: LATANOPROST EYE DROP 0.005% 2.5 ML BOTTLE EACHEYE SCH (18:16)
[2022-01-14] MEDS: GLUCERNA 1.5 1,000 ML BOTTLE NG PRN (18:41)
--- NOTE | 2022-01-14 18:45 | NUR ---
CERTIFIED DENTAL ASSISTANT CLOSING NOTES: RECEIVED PATIENT ON BED ASLEEP, A/O X1. HAS ORDER T-PIECE AEROSOL 2L O2 BUT PT REFUSED, PLACED ON ROOM AIR TOLERATING WELL, O2 SAT 96%, NO S/S OF SOB AR ACUTE DISTRESS AT THE MOMENT. PAIN ASSESSED USING FLACC, 0/10. TELE MONITOR READING SR WITH BBB, HR- 77 BPM. IV ACCESS AT THE RIGHT WRIST G20, RUNNING D5NS @ 50ML/HR. ON GLUCERNA 1.2 FEEDING AT 60ML/HR VIA G-TUBE TOLERATING WELL. MADE COMFORTABLE, CLEAN AND DRY. SAFETY MEASURES IN PLACE; CALL LIGHT WITHIN REACH. BED ON LOWEST LOCKED POSITION, SIDE RAILS UP X2, WILL ENDORSE TO PM SHIFT.
--- NOTE | 2022-01-14 19:30 | NUR ---
CASINO CHANGE ATTENDANT OPENING NOTE RECEIVED PATIENT AWAKE IN BED. A/O X1 AND ABLE TO MAKE NEEDS KNOWN BY SHAKING AND NODDING HEAD. T-PIECE AEROSOL 2L O2, TOLERATING WELL. NO SOB OR S/S OF RESPIRATORY DISTRESS. ON EXTERNAL CULINARY MANAGER READING SR HR 82 BPM. IV ACCESS RIGHT WRIST G20, RUNNING D5NS @ 50ML/HR. ON GLUCERNA 1.2 FEEDING @ 60ML/HR VIA G-TUBE, TOLERATING WELL. WITH BILATERAL MITTEN RESTRAINTS, NOTED WITH GOOD CIRCULATION. SAFETY PRECAUTIONS IN PLACE. BED IN LOWEST LOCKED POSITION, HOB ELEVATED, SIDE RAILS UP X3, CALL LIGHT AND TABLE WITHIN REACH. ALL NEEDS MET AT THIS TIME.
[2022-01-14 20:00] VITALS: BP 126/90
[2022-01-14] MEDS: ATORVASTATIN 40 MG TABLET GT SCH (21:38)
--- NOTE | 2022-01-14 22:00 | NUR ---
Pt recvd awake on room air with portex 7 trach that is patent, midline and secured. neb tx given and osmel well. suction PRN and trach care done. Spo2 >92% maintained. placed pt on CA after neb tx, but pt continues to remove it. No SOB or respiratory distress noted. Spare trach and ambu bag at bedside.
[2022-01-14] MEDS: INSULIN GLARGINE, 100 UNIT/ML CARTRIDGE SQ SCH (22:17)
[2022-01-15] VITALS: BP 162/85
[2022-01-15] MEDS: BLOOD SUGAR DIAGNOSTIC 1 EACH STRIP IN SCH ×4 (00:41→17:56)
--- NOTE | 2022-01-15 00:45 | NUR ---
RN NOTE PT NOTED WITH BP 162/85 WHEN VITAL SIGNS WERE DONE AT MIDNIGHT. RECHECKED VITAL SIGNS AT THIS TIME. CURRENT READING BP 134/63 HR 79 R 20 TEMP 97.8 O2 SAT 100% ON 2 LPM VIA T PIECE. NO S/S OF ACUTE DISTRESS NOTED. ALL NEEDS MET AT THIS TIME.
[2022-01-15] MEDS: ALBUTEROL FS 2.5 MG/0.5 ML VIAL.NEB NEB SCH ×4 (01:56→20:03)
[2022-01-15 04:00] VITALS: BP 154/93
--- NOTE | 2022-01-15 06:37 | NUR ---
TRANSIT PLANNING DIRECTOR CLOSING NOTE PATIENT AWAKE IN BED. A/O X1 AND ABLE TO MAKE NEEDS KNOWN BY SHAKING AND NODDING HEAD. T-PIECE AEROSOL 2L O2, TOLERATING WELL. NO SOB OR S/S OF RESPIRATORY DISTRESS. ON EXTERNAL ROLLING MILL OPERATOR READING SR HR 85 BPM. IV ACCESS RIGHT WRIST G20, RUNNING D5NS @ 50ML/HR. ON GLUCERNA 1.2 FEEDING @ 60ML/HR VIA G-TUBE, TOLERATING WELL. WITH BILATERAL MITTEN RESTRAINTS, NOTED WITH GOOD CIRCULATION. ALL DUE MEDS GIVEN ORDERED. TURNED AND REPOSITIONED Q2H. SAFETY PRECAUTIONS IN PLACE AT ALL TIMES. BED IN LOWEST LOCKED POSITION, HOB ELEVATED, SIDE RAILS UP X3, CALL LIGHT AND TABLE WITHIN REACH. ALL NEEDS MET AT THIS TIME AND WILL ENDORSE TO ONCOMING NURSE FOR SARWAT.
[2022-01-15 07:02] LABS: BASOPHILS # (AUTO) 0.1 K/uL (0.0-0.2); BASOPHILS % (AUTO) 0.9 % (0.0-2.0); EOSINOPHILS % (AUTO) 10.4 % (0.0-6.0); HEMATOCRIT 34 % (39-51); HEMOGLOBIN 10.6 g/dL (13.5-17.5); LYMPHOCYTES # (AUTO) 1.3 K/uL (0.8-4.8); LYMPHOCYTES % (AUTO) 17.6 % (20.0-44.0); MEAN CORPUSCULAR HGB CONC 32 g/dl (31.0-36.0); MEAN CORPUSCULAR VOLUME 86 fL (80-96); MONOCYTES # (AUTO) 0.5 K/uL (0.1-1.30); MONOCYTES % (AUTO) 7.4 % (2.0-12.0); NEUTROPHILS # (AUTO) 4.6 K/uL (1.8-8.9); NEUTROPHILS % (AUTO) 63.7 % (43.0-81.0); PLATELET COUNT (AUTO) 470 K/uL (150-450); RED BLOOD CELL COUNT(AUTO) 3.88 MIL/uL (4.5-6.0); WHITE BLOOD COUNT (AUTO) 7.3 K/uL (4.3-11.0)
--- NOTE | 2022-01-15 07:30 | NUR ---
HOSPICE NURSE OPENING NOTE Patient in bed, awake; non-verbal. On O2 at 5LPM via t-piece. No SOB or s/s of distress noted. IV access on Right wrist #20 infusing D5NS at 50 ml/hr. G-tube in place running Glucerna at 65 ml/hr, tolerating well. On tele monitoring showing SR, HR 85. Safety precautions in place: bed in low, locked position; siderails up x 2; call light within reach. Will continue to monitor. Addendum: 01/15/22 at 1115 by SAMMIE YAP RN ADD: Bilateral soft restraints, mittens noted.
[2022-01-15 08:00] VITALS: BP 142/85
--- NOTE | 2022-01-15 08:33 | NUR ---
RN NOTE Received lactic acid value from Soc from lab, 2.3. Called Dr. Muir's office to report, spoke with alumni secretary; she will relay to Dr. Muir.
[2022-01-15] MEDS: PANTOPRAZOLE 40 MG/PACK PACK GT SCH (09:25)
[2022-01-15] MEDS: ASCORBIC ACID 500 MG TABLET GT SCH (09:27)
[2022-01-15] MEDS: QUETIAPINE FUMARATE 25 MG TABLET GT SCH ×2 (09:27→20:43)
[2022-01-15] MEDS: ASPIRIN 81 MG TAB.CHEW GT SCH (09:27)
[2022-01-15] MEDS: METFORMIN 500 MG TABLET GT SCH ×2 (09:27→16:15)
[2022-01-15] MEDS: LINAGLIPTIN 5 MG TABLET GT SCH (09:27)
[2022-01-15] MEDS: CHLORHEXIDINE GLUCONATE 15 ML UDC MM SCH ×2 (09:27→16:15)
[2022-01-15] MEDS: LACOSAMIDE ORAL SOLN 50 MG/5 ML UDC GT SCH ×2 (09:27→20:43)
[2022-01-15] MEDS: LEVETIRACETAM SOL (5 ML) 100 MG/ML UDC GT SCH ×2 (09:27→20:43)
[2022-01-15] MEDS: METOPROLOL TARTRATE 50 MG TABLET GT SCH ×2 (09:28→16:15)
[2022-01-15] MEDS: METOCLOPRAMIDE HCL 10 MG TABLET GT SCH ×4 (09:28→20:43)
[2022-01-15] MEDS: DOCUSATE SODIUM LIQ 100 MG/10 ML UDC GT SCH (09:29)
[2022-01-15] MEDS: HEPARIN SODIUM, PORCINE 5000 UNITS/1 ML VIAL SQ SCH ×2 (09:30→20:45)
[2022-01-15 10:43] LABS: BILIRUBIN,DIRECT 0.1 mg/dL (0.0-0.2); BILIRUBIN,TOTAL 0.2 mg/dL (0.2-1.0)
--- NOTE | 2022-01-15 11:42 | NUR ---
RN NOTE Received call from Soc from lab, patient's lactic acid is 3.1. Called Dr. Dheeraj Muir's office, spoke with Nuvia and left a message.
[2022-01-15] MEDS: IV D5/ 0.9% NACL 1,000 ML IV PRN (11:49)
[2022-01-15 12:42] VITALS: BP 155/98
[2022-01-15] MEDS: IPRATROPIUM NEB FS 0.5 MG/2.5 ML AMPUL.NEB NEB PRN (13:53)
[2022-01-15] MEDS: GLUCERNA 1.5 1,000 ML BOTTLE NG PRN (15:08)
[2022-01-15] MEDS: LATANOPROST EYE DROP 0.005% 2.5 ML BOTTLE EACHEYE SCH (17:56)
[2022-01-15 18:54] VITALS: BP 141/79
--- NOTE | 2022-01-15 19:20 | NUR ---
SUPERVISOR FELTING CLOSING NOTE Patient in bed, awake; non-verbal. On O2 at 5LPM via t-piece. No SOB or s/s of distress noted. IV access on Right wrist #20 infusing D5NS at 50 ml/hr. G-tube in place running Glucerna at 65 ml/hr, tolerating well. Bilateral soft restraints, mittens noted. Patient kept clean and dry. Due meds given. Turned and repositioned as tolerated. On tele monitoring showing SR, HR 85. Safety precautions in place: bed in low, locked position; siderails up x 2; call light within reach. Will endorse to shift nurse manager nurse for SARWAT.
--- NOTE | 2022-01-15 19:30 | NUR ---
noc rn opening note received patient in bed, eyes open. able mouth words. no s/s of apparent distress on t-piece 5lpm aerosol. tele monitor reading sr with 83 bpm. denies pain at this time. bilateral mitten in place. Glucerna running at 65cc/hr. r. wrist D5NS running @50mls/hr. safety in place. will monitor and cont. with the plan of care for patient.
[2022-01-15 20:00] VITALS: BP 144/74
[2022-01-15] MEDS: INSULIN GLARGINE, 100 UNIT/ML CARTRIDGE SQ SCH (22:00)
--- NOTE | 2022-01-15 22:00 | NUR ---
Scheduled 2200 Lantus non-administered. Patient Blood glucose level 108. will re-check at midnight.
[2022-01-15] MEDS: ATORVASTATIN 40 MG TABLET GT SCH (22:48)
[2022-01-16] VITALS: BP_SYST 130; BP_SYST 136; BP_DIAS 66
[2022-01-16] MEDS: BLOOD SUGAR DIAGNOSTIC 1 EACH STRIP IN SCH ×5 (00:18→23:13)
--- NOTE | 2022-01-16 00:36 | NUR ---
Temp. re-check 98.2, no fever. will cont. to monitor.
[2022-01-16] MEDS: ALBUTEROL FS 2.5 MG/0.5 ML VIAL.NEB NEB SCH ×4 (02:01→20:20)
[2022-01-16 04:00] VITALS: BP 136/60
[2022-01-16 06:36] LABS: BASOPHILS # (AUTO) 0.1 K/uL (0.0-0.2); BASOPHILS % (AUTO) 0.7 % (0.0-2.0); HEMATOCRIT 32 % (39-51); HEMOGLOBIN 10.2 g/dL (13.5-17.5); LYMPHOCYTES # (AUTO) 1.1 K/uL (0.8-4.8); LYMPHOCYTES % (AUTO) 14.3 % (20.0-44.0); MEAN CORPUSCULAR HGB CONC 32 g/dl (31.0-36.0); MEAN CORPUSCULAR VOLUME 87 fL (80-96); MONOCYTES # (AUTO) 0.6 K/uL (0.1-1.30); NEUTROPHILS # (AUTO) 5.4 K/uL (1.8-8.9); PLATELET COUNT (AUTO) 443 K/uL (150-450); RED BLOOD CELL COUNT(AUTO) 3.67 MIL/uL (4.5-6.0); WHITE BLOOD COUNT (AUTO) 7.9 K/uL (4.3-11.0)
[2022-01-16 07:18] LABS: CALCIUM, SERUM 9.5 mg/dL (8.5-10.1); MAGNESIUM 2.1 mg/dL (1.8-2.4); PHOSPHORUS 3.2 mg/dL (2.5-4.9)
--- NOTE | 2022-01-16 07:19 | NUR ---
rn closing note needs attended. no significant change on my shift. will endorse to morning shift rn for continuity of patient care.
--- NOTE | 2022-01-16 07:36 | NUR ---
RAW JUICE WEIGHER OPENING NOTE Patient in bed, awake; non-verbal. On O2 at 5LPM via t-piece. No SOB or s/s of distress noted. IV access on Right wrist #20 infusing D5NS at 50 ml/hr. G-tube in place running Glucerna at 65 ml/hr, tolerating well. On tele monitoring showing SR, HR on the 80's. Bilateral soft restraints, mittens noted. Safety precautions in place: bed in low, locked position; siderails up x 2; call light within reach. Will continue to monitor.
[2022-01-16 08:00] VITALS: BP 158/109
[2022-01-16] MEDS: DOCUSATE SODIUM LIQ 100 MG/10 ML UDC GT SCH (09:20)
[2022-01-16] MEDS: ASCORBIC ACID 500 MG TABLET GT SCH (09:20)
[2022-01-16] MEDS: LACOSAMIDE ORAL SOLN 50 MG/5 ML UDC GT SCH ×2 (09:20→21:42)
[2022-01-16] MEDS: METOCLOPRAMIDE HCL 10 MG TABLET GT SCH ×4 (09:20→21:44)
[2022-01-16] MEDS: LEVETIRACETAM SOL (5 ML) 100 MG/ML UDC GT SCH ×2 (09:20→21:42)
[2022-01-16] MEDS: CHLORHEXIDINE GLUCONATE 15 ML UDC MM SCH ×2 (09:20→16:58)
[2022-01-16] MEDS: QUETIAPINE FUMARATE 25 MG TABLET GT SCH ×2 (09:21→21:43)
[2022-01-16] MEDS: PANTOPRAZOLE 40 MG/PACK PACK GT SCH (09:21)
[2022-01-16] MEDS: METOPROLOL TARTRATE 50 MG TABLET GT SCH ×2 (09:21→16:58)
[2022-01-16] MEDS: LINAGLIPTIN 5 MG TABLET GT SCH (09:21)
[2022-01-16] MEDS: METFORMIN 500 MG TABLET GT SCH ×2 (09:21→16:58)
[2022-01-16] MEDS: ASPIRIN 81 MG TAB.CHEW GT SCH (09:21)
[2022-01-16] MEDS: HEPARIN SODIUM, PORCINE 5000 UNITS/1 ML VIAL SQ SCH ×2 (09:22→21:45)
[2022-01-16] MEDS: IV D5/ 0.9% NACL 1,000 ML IV PRN (09:31)
--- NOTE | 2022-01-16 12:00 | NUR ---
RN NOTE Patient's IV access on Right wrist got dislodged. IV re-inserted on Left wrist #22, flushes well.
[2022-01-16] MEDS: GLUCERNA 1.5 1,000 ML BOTTLE NG PRN (12:45)
[2022-01-16 15:59] VITALS: BP 153/77
[2022-01-16] MEDS: LATANOPROST EYE DROP 0.005% 2.5 ML BOTTLE EACHEYE SCH (18:00)
--- NOTE | 2022-01-16 19:37 | NUR ---
FISHING GEAR MECHANIC CLOSING NOTE Patient in bed, asleep. On O2 at 5LPM via t-piece. No SOB or s/s of distress noted. IV access on Left wrist #22 infusing D5NS at 50 ml/hr. G-tube in place running Glucerna at 65 ml/hr, tolerating well. On tele monitoring showing SR with BBB, HR 78. Bilateral soft restraints, mittens noted. Patient kept clean and dry. Due meds given. Turned and repositioned, as tolerated. Safety precautions in place: bed in low, locked position; siderails up x 2; call light within reach. Will endorse to shift nurse manager nurse for SARWAT.
[2022-01-16] MEDS: IPRATROPIUM NEB FS 0.5 MG/2.5 ML AMPUL.NEB NEB PRN (20:15)
[2022-01-16 20:20] VITALS: BP 134/73
[2022-01-16] MEDS: ATORVASTATIN 40 MG TABLET GT SCH (21:43)
[2022-01-16] MEDS: INSULIN GLARGINE, 100 UNIT/ML CARTRIDGE SQ SCH (22:00)
--- NOTE | 2022-01-17 00:09 | NUR ---
RN OPENING NOTES RECEIVED PT IN BED, ASLEEP, AWAKE. AOx2, ABLE TO NONVERBAL BUT ABLE TO MOUTH WORDS. ON AEROSOLIZED T-PIECE 5LPM AND TOLERATING WELL. NO SOB NOTED. NO S/SX OF RESPIRATORY DISTRESS NOTED. TELE MONITOR DETECTS SINUS RHYTHM WITH BBB. IV ACCESS IN L WRIST #22G RUNNING D5NS @ 50 ML/HR. SAFETY PRECAUTIONS IN PLACE: BED IN LOWEST, LOCKED POSITION, SIDERAILS UP x2, AND BRAKES ON. TABLE AND CALL LIGHT WITHIN REACH. ALL NEEDS MET AT THIS TIME. Addendum: 01/17/22 at 0013 by ELIER GATICA RN TIME SHOULD BE AT 1930. Addendum: 01/17/22 at 0015 by ELIER GATICA RN DATE AND TIME SHOULD BE 01/16/22 @ 1930.
[2022-01-17 01:06] VITALS: BP 137/65
[2022-01-17] MEDS: ALBUTEROL FS 2.5 MG/0.5 ML VIAL.NEB NEB SCH ×4 (01:42→19:37)
[2022-01-17 04:49] VITALS: BP 145/79
[2022-01-17] MEDS: IV D5/ 0.9% NACL 1,000 ML IV PRN ×2 (05:00→23:38)
[2022-01-17] MEDS: GLUCERNA 1.5 1,000 ML BOTTLE NG PRN (05:52)
[2022-01-17] MEDS: BLOOD SUGAR DIAGNOSTIC 1 EACH STRIP IN SCH ×4 (06:21→23:15)
[2022-01-17 06:24] LABS: BASOPHILS % (AUTO) 0.3 % (0.0-2.0); EOSINOPHILS % (AUTO) 5.9 % (0.0-6.0); HEMATOCRIT 30 % (39-51); HEMOGLOBIN 9.6 g/dL (13.5-17.5); LYMPHOCYTES # (AUTO) 1.2 K/uL (0.8-4.8); LYMPHOCYTES % (AUTO) 9.5 % (20.0-44.0); MEAN CORPUSCULAR HGB CONC 32 g/dl (31.0-36.0); MEAN CORPUSCULAR VOLUME 86 fL (80-96); MONOCYTES # (AUTO) 0.6 K/uL (0.1-1.30); MONOCYTES % (AUTO) 4.8 % (2.0-12.0); NEUTROPHILS # (AUTO) 9.8 K/uL (1.8-8.9); NEUTROPHILS % (AUTO) 79.5 % (43.0-81.0); PLATELET COUNT (AUTO) 417 K/uL (150-450); RED BLOOD CELL COUNT(AUTO) 3.46 MIL/uL (4.5-6.0); WHITE BLOOD COUNT (AUTO) 12.3 K/uL (4.3-11.0)
--- NOTE | 2022-01-17 07:00 | NUR ---
RN CLOSING NOTES PT IN BED, ASLEEP, AWAKENS TO VERBAL STIMULI. AOx2, NONVERBAL BUT ABLE TO MOUTH WORDS. ON AEROSOLIZED T-PIECE 5LPM AND TOLERATING WELL. NO SOB NOTED. NO S/SX OF RESPIRATORY DISTRESS NOTED. TELE MONITOR DETECTS SINUS RHYTHM WITH BBB. IV ACCESS IN L WRIST #22G RUNNING D5NS @ 50 ML/HR. ALL ORDERS CARRIED OUT. ALL NEEDS MET. PT KEPT CLEAN AND DRY. SAFETY PRECAUTIONS IN PLACE: BED IN LOWEST, LOCKED POSITION, SIDERAILS UP x2, AND BRAKES ON. TABLE AND CALL LIGHT WITHIN REACH. WILL ENDORSE TO ONCOMING SHIFT FOR SARWAT.
--- NOTE | 2022-01-17 07:32 | NUR ---
HEEL BUILDER OPENING NOTE RECEIVED PATIENT SLEEPING IN BED COMFORTABLY; NON-VERBAL ABLE TO MOUTH WORDS, OPENS EYES, A/OX1-2 ON AEROSOLIZED T-PIECE 5LPM AND TOLERATING WELL. NO SOB NOTED. NO S/SX OF RESPIRATORY DISTRESS NOTED. TELE MONITOR DETECTS SINUS RHYTHM WITH BBB. NO SOB NOTED; BREATHING EVEN AND UNLABORED; TELE MONITOR READING IS SINUS RHYTHM WITH BBB. AT THIS TIME. IV ACCESS #22G RUNNING D5NS @ 50 ML/HR. INTACT AND PATENT FLUSHING WELL C/D/I. PATIENT HAS GTUBE FEEDING OF GLUCERNA AT 65 ML/HR. SAFETY PRECAUTIONS IN PLACE. BED IN LOWEST LOCKED POSITION, HOB ELEVATED, SIDE RAILS UP X2, AND CALL LIGHT AND TABLE WITHIN REACH. BED ALARM ON; WILL CONTINUE TO MONITOR AND FOLLOW PLAN OF CARE DURING MY SHIFT.
--- NOTE | 2022-01-17 07:38 | NUR ---
RN NOTES - CRITICAL VALUE SHARON FROM LAB REPORTS 79.8 WBC, INFORMED RENETTA IMELDA ACCORDINGLY, ACKNOWLEDGED NO NEW ORDER GIVEN Addendum: 01/17/22 at 1631 by WALT WEBB RN DISREGARD - WRONG PATIENT
[2022-01-17 07:39] LABS: CALCIUM, SERUM 9.1 mg/dL (8.5-10.1); MAGNESIUM 1.9 mg/dL (1.8-2.4); PHOSPHORUS 3.2 mg/dL (2.5-4.9); POTASSIUM 4.2 mmol/L (3.5-5.1)
[2022-01-17 08:00] VITALS: BP_SYST 112; BP_SYST 129; BP_DIAS 70; BP_DIAS 72
[2022-01-17] MEDS: LACOSAMIDE ORAL SOLN 50 MG/5 ML UDC GT SCH ×2 (08:54→21:28)
[2022-01-17] MEDS: ASPIRIN 81 MG TAB.CHEW GT SCH (08:54)
[2022-01-17] MEDS: METOCLOPRAMIDE HCL 10 MG TABLET GT SCH ×4 (08:55→21:29)
[2022-01-17] MEDS: ASCORBIC ACID 500 MG TABLET GT SCH (08:55)
[2022-01-17] MEDS: QUETIAPINE FUMARATE 25 MG TABLET GT SCH ×2 (08:55→21:29)
[2022-01-17] MEDS: DOCUSATE SODIUM LIQ 100 MG/10 ML UDC GT SCH (08:55)
[2022-01-17] MEDS: METFORMIN 500 MG TABLET GT SCH ×2 (08:55→17:14)
[2022-01-17] MEDS: METOPROLOL TARTRATE 50 MG TABLET GT SCH ×2 (08:56→17:15)
[2022-01-17] MEDS: CHLORHEXIDINE GLUCONATE 15 ML UDC MM SCH ×2 (08:56→17:14)
[2022-01-17] MEDS: PANTOPRAZOLE 40 MG/PACK PACK GT SCH (08:56)
[2022-01-17] MEDS: LINAGLIPTIN 5 MG TABLET GT SCH (08:56)
[2022-01-17] MEDS: HEPARIN SODIUM, PORCINE 5000 UNITS/1 ML VIAL SQ SCH ×2 (08:57→21:30)
[2022-01-17] MEDS: LEVETIRACETAM SOL (5 ML) 100 MG/ML UDC GT SCH ×2 (08:59→21:28)
[2022-01-17 12:00] VITALS: BP 108/79
--- NOTE | 2022-01-17 12:57 | NUR ---
SS consult requested for advanced directive. BOBBY CALLED THE PT.'S SISTER, DORI RAYMUNDO WHO IS THE RESPONSIBLE REPUBLICAN AT THIS TIME. MARTHA STATES HER AND HAROLDO SIBLINGS HAVE BEEN MAKING MEDICAL DECISIONS ON BEHALF OF THE PATIENT WHILE HES BEEN AT THE FACILITY. BOBBY EDUCATED DORI THAT THIS PT. IS A BETTER CANDIDATE FOR CONSERVATORSHIP THAN ADVANCED DIRECTIVE . PER DORI'S REQUEST BOBBY PLACED CONSERVATORSHIP EDUCATIONAL MATERIAL IN PATIENT'S CHART SO SHE MAY SEE IT WHEN HES DISCHARGED BACK TO THE FACILITY. BOBBY WILL BE AVAILABLE NEEDED.
[2022-01-17 16:00] VITALS: BP 130/93
--- NOTE | 2022-01-17 16:20 | NUR ---
RN NOTES PATIENT IS NOTED TO HAVE INCREASED ANXIETY/AGITATION EVIDENCED BY HIM TRYING TO GET OUT OF HIS BED. ADMINISTERED ATIVAN 1 MG TABLET ORDERED, WILL CONTINUE TO MONITOR THE PATIENT.
[2022-01-17] MEDS: LATANOPROST EYE DROP 0.005% 2.5 ML BOTTLE EACHEYE SCH (17:40)
--- NOTE | 2022-01-17 18:03 | NUR ---
RN NOTES DVT PUMP IN PLACE FOR VTE SCORE OF 4
--- NOTE | 2022-01-17 18:32 | NUR ---
DESTINATION COORDINATOR CLOSING NOTE PATIENT AWAKE IN BED COMFORTABLY; NON-VERBAL ABLE TO MOUTH WORDS, OPENS EYES, A/OX1-2 ON AEROSOLIZED STILL WITH T-PIECE 5LPM AND TOLERATING WELL AT 98%. NO SOB NOTED. NO S/SX OF RESPIRATORY DISTRESS NOTED. DRAINED AROUND 200 ML OF FLUIDS THROUGH SUCTIONING. TELE MONITOR DETECTS SINUS RHYTHM WITH BBB AT 77 HR. NO SOB NOTED; BREATHING EVEN AND UNLABORED IV ACCESS #22G RUNNING D5NS @ 50 ML/HR. INTACT AND PATENT FLUSHING WELL C/D/I. PATIENT STILL HAS G-TUBE FEEDING OF GLUCERNA AT 65 ML/HR. SAFETY PRECAUTIONS MAINTAINED: BED IN LOWEST LOCKED POSITION, HOB ELEVATED, SIDE RAILS UP X2, AND CALL LIGHT AND TABLE WITHIN REACH. BED ALARM ON. DUE MEDS GIVEN. BILATERAL HAND MITTENS CHECKED EVERY 2 HOURS, STILL NEEDED AT THIS TIME BECAUSE PATIENT SCRATCHES AND PULLS CONTRAPTIONS. ALL NEEDS MET. WILL ENDORSE TO THE NIGHT NURSE.
[2022-01-17 20:00] VITALS: BP 134/75
[2022-01-17] MEDS: ATORVASTATIN 40 MG TABLET GT SCH (21:28)
[2022-01-17] MEDS: INSULIN GLARGINE, 100 UNIT/ML CARTRIDGE SQ SCH (22:00)
[2022-01-18] VITALS: BP 131/69
--- NOTE | 2022-01-18 00:17 | NUR ---
RN OPENING NOTES RECEIVED PT IN BED, ASLEEP, AWAKE. AOx2, NONVERBAL BUT ABLE TO MOUTH WORDS. ON AEROSOLIZED T-PIECE 5LPM AND TOLERATING WELL. NO SOB NOTED. NO S/SX OF RESPIRATORY DISTRESS NOTED. TELE MONITOR DETECTS SINUS RHYTHM WITH BBB. IV ACCESS IN L WRIST #22G RUNNING D5NS @ 50 ML/HR. SAFETY PRECAUTIONS IN PLACE: BED IN LOWEST, LOCKED POSITION, SIDERAILS UP x2, AND BRAKES ON. TABLE AND CALL LIGHT WITHIN REACH. ALL NEEDS MET AT THIS TIME. Addendum: 01/18/22 at 0017 by ELIER GATICA RN SHOULD BE AT 01/17/220.
[2022-01-18] MEDS: ALBUTEROL FS 2.5 MG/0.5 ML VIAL.NEB NEB SCH ×3 (01:04→13:02)
[2022-01-18] MEDS: GLUCERNA 1.5 1,000 ML BOTTLE NG PRN (06:29)
[2022-01-18] MEDS: BLOOD SUGAR DIAGNOSTIC 1 EACH STRIP IN SCH ×2 (06:41→13:18)
--- NOTE | 2022-01-18 06:48 | NUR ---
RN CLOSING NOTES PT IN BED, ASLEEP, AWAKE. AOx2, NONVERBAL BUT ABLE TO MOUTH WORDS. ON AEROSOLIZED T-PIECE 5LPM AND TOLERATING WELL. NO SOB NOTED. NO S/SX OF RESPIRATORY DISTRESS NOTED. TELE MONITOR DETECTS SINUS RHYTHM WITH BBB. IV ACCESS IN L WRIST #22G RUNNING D5NS @ 50 ML/HR. ALL ORDERS CARRIED OUT. ALL NEEDS MET. PT KEPT CLEAN AND DRY. SAFETY PRECAUTIONS IN PLACE: BED IN LOWEST, LOCKED POSITION, SIDERAILS UP x2, AND BRAKES ON. TABLE AND CALL LIGHT WITHIN REACH. WILL ENDORSE TO ONCOMING SHIFT FOR SARWAT.
[2022-01-18 07:27] LABS: CALCIUM, SERUM 9.1 mg/dL (8.5-10.1); CREATININE 1.1 mg/dL (0.6-1.3); MAGNESIUM 1.9 mg/dL (1.8-2.4); PHOSPHORUS 4.1 mg/dL (2.5-4.9); POTASSIUM 4.1 mmol/L (3.5-5.1)
[2022-01-18 07:33] LABS: BASOPHILS % (AUTO) 0.6 % (0.0-2.0); EOSINOPHILS % (AUTO) 10.6 % (0.0-6.0); HEMATOCRIT 31 % (39-51); LYMPHOCYTES % (AUTO) 14.6 % (20.0-44.0); MEAN CORPUSCULAR HGB CONC 32 g/dl (31.0-36.0); MEAN CORPUSCULAR VOLUME 86 fL (80-96); MONOCYTES # (AUTO) 0.5 K/uL (0.1-1.30); NEUTROPHILS # (AUTO) 4.5 K/uL (1.8-8.9); NEUTROPHILS % (AUTO) 66.2 % (43.0-81.0); PLATELET COUNT (AUTO) 418 K/uL (150-450); RED BLOOD CELL COUNT(AUTO) 3.62 MIL/uL (4.5-6.0); WHITE BLOOD COUNT (AUTO) 6.8 K/uL (4.3-11.0)
[2022-01-18 09:41] LABS: BILIRUBIN,DIRECT 0.1 mg/dL (0.0-0.2); BILIRUBIN,TOTAL 0.2 mg/dL (0.2-1.0)
[2022-01-18 10:42] VITALS: BP 131/75
[2022-01-18] MEDS: METOPROLOL TARTRATE 50 MG TABLET GT SCH (10:42)
[2022-01-18] MEDS: ASPIRIN 81 MG TAB.CHEW GT SCH (10:42)
[2022-01-18] MEDS: LINAGLIPTIN 5 MG TABLET GT SCH (10:42)
[2022-01-18] MEDS: PANTOPRAZOLE 40 MG/PACK PACK GT SCH (10:43)
[2022-01-18] MEDS: ASCORBIC ACID 500 MG TABLET GT SCH (10:43)
[2022-01-18] MEDS: LACOSAMIDE ORAL SOLN 50 MG/5 ML UDC GT SCH (10:43)
[2022-01-18] MEDS: METFORMIN 500 MG TABLET GT SCH (10:43)
[2022-01-18] MEDS: LEVETIRACETAM SOL (5 ML) 100 MG/ML UDC GT SCH (10:44)
[2022-01-18] MEDS: CHLORHEXIDINE GLUCONATE 15 ML UDC MM SCH (10:44)
[2022-01-18] MEDS: DOCUSATE SODIUM LIQ 100 MG/10 ML UDC GT SCH (10:44)
[2022-01-18] MEDS: QUETIAPINE FUMARATE 25 MG TABLET GT SCH (10:44)
[2022-01-18] MEDS: METOCLOPRAMIDE HCL 10 MG TABLET GT SCH ×2 (10:44→14:31)
[2022-01-18] MEDS: HEPARIN SODIUM, PORCINE 5000 UNITS/1 ML VIAL SQ SCH (11:04)
--- NOTE | 2022-01-18 15:37 | NUR ---
LABEL STITCHER NOTE PATIENT TAKEN FROM FACILITY VIA AMBULANCE @ 1330. TRANSPORTED TO [facility]. REPORT GIVEN TO RECEIVING NURSE, JAZIEL. TOLERATED ALL MEDICATIONS VIA G-TUBE ON SHIFT. TOTAL FED WS 520ML OF GLUCERNA @ 65ML/HR. TRACH CONNECTED TO CONTINUOUS OXYGEN SUPPLY OF 5LPM. BLOOD SUGAR LEVELS ON SHIFT WERE STABLE @ 98; NO INSULIN COVERAGE NEEDED. PATIENT REMAINS NON-VERBAL, HOWEVER ABLE TO NOD YES AND NO WHEN COMMUNICATED WITH. PATIENT SENT HOME WITH BELONGINGS.
[2022-01-22 11:07] LABS: *HIV-1 RNA BY PCR <20 copies/mL (.)
== END 2022-01-18 15:30 | DRG 193 ==
LOC: ER 00:35 → TRANSITION 04:07 → TELE 18:46
PROVIDERS: ADMIT Internal Medicine Nephrology; ATTEND Internal Medicine Nephrology
DX: J18.9 Pneumonia, unspecified organism (principal); G92.8 Other toxic encephalopathy; E87.1 Hypo-osmolality and hyponatremia; J96.11 Chronic respiratory failure with hypoxia; E87.2 Acidosis; G40.909 Epilepsy, unspecified, not intractable, without status epilepticus; Z86.73 Personal history of transient ischemic attack (TIA), and cerebral infarction without residual deficits; Z93.0 Tracheostomy status; Z86.718 Personal history of other venous thrombosis and embolism; E78.5 Hyperlipidemia, unspecified; E11.22 Type 2 diabetes mellitus with diabetic chronic kidney disease; I12.9 Hypertensive chronic kidney disease with stage 1 through stage 4 chronic kidney disease, or unspecified chronic kidney disease; H54.8 Legal blindness, as defined in USA; F20.9 Schizophrenia, unspecified; I25.10 Atherosclerotic heart disease of native coronary artery without angina pectoris; I25.2 Old myocardial infarction; R13.10 Dysphagia, unspecified; Z79.01 Long term (current) use of anticoagulants; Z86.74 Personal history of sudden cardiac arrest; N18.2 Chronic kidney disease, stage 2 (mild); Z93.1 Gastrostomy status; E11.65 Type 2 diabetes mellitus with hyperglycemia
CPT/HCPCS: 31720; 36415; 36600; 70450-TC; 71045-TC; 80048-TC; 80076-TC; 80202-TC; 82247-TC; 82248-TC; 82962-TC; 83605-TC; 83735-TC; 84100-TC; 84484-TC; 85025-TC; 85652-TC; 85730-TC; 86140-TC; 86706; 86803; 87040-TC; 87081-TC; 87340; 87536; 87806; 93970-TC; 94640-TC; 94664-TC; 94799-TC; A4623; A7526; C9803; G0378; G0480; J0456; J0696; J1644; J1815; J1953; J2405; J2543; J3370; J7042; J7060; J8597

== ENCOUNTER 2022-03-31 21:33 | Inpatient (IN) | payer MEDICARE, OTHER ==
[~2022-03-31] VITALS: Ht 165.1 cm; Wt 69.9 kg
[~2022-03-31 21:33] MED LIST changes: +ACET-2605 GT; +ACET325T53 GT; +ASCO500C18 GT; +ASPI-1169 GT; +ATOR40TA GT; +BISA10SU61 RC; +CHLO473M3 MM; +CRAN3875 GT; +DOCU50LI GT; +HEPA50007 SQ; +INSU100V11 SQ; +INSU100V7 SQ; +IPRA4AER IH; +LACO100T2 GT; +LANS30CA54 GT; +LATA2.5D2 EACHEYE; +LEVE1000 GT; +LINA5TAB GT; +LORA-259 GT; +MAGN400O21 GT; +METF-440 GT; +METO-295 GT; +METO50TA16 GT; +NA P133E RC; +ONDA4TAB5 GT; +QUET50TA GT
--- NOTE | 2022-03-31 21:40 | NUR ---
[id number] FROM [facility] C/O SOB X 1 HR. PLACED ON BED, AWAKE-ALERT RESPONDING TO VERBAL STIMULI BY NODDING HEAD, ATTACHED TO MONITOR SATURATING AT 90%- AMBU BAG. FORECLOSURE SPECIALIST. AT BEDSIDE SUCTION SECRETION DONE SATURATING 97% WITH O2 5LIT VIA TP.
--- NOTE | 2022-03-31 21:57 | NUR ---
BLOOD DRAWN, SWAB FOR COVID19 SENT TO LAB
[2022-03-31] MEDS ORDERED: ACETAMINOPHEN 650 MG/SUPP.RECT RC ONE ×2 (21:59→22:00)
[2022-03-31 22:43] LABS: BASOPHILS # (AUTO) 0.1 K/uL (0.0-0.2); BASOPHILS % (AUTO) 0.4 % (0.0-2.0); EOSINOPHILS % (AUTO) 7.3 % (0.0-6.0); HEMATOCRIT 37 % (39-51); HEMOGLOBIN 11.8 g/dL (13.5-17.5); LYMPHOCYTES # (AUTO) 0.9 K/uL (0.8-4.8); LYMPHOCYTES % (AUTO) 7.1 % (20.0-44.0); MEAN CORPUSCULAR HGB CONC 32 g/dl (31.0-36.0); MEAN CORPUSCULAR VOLUME 90 fL (80-96); MONOCYTES # (AUTO) 0.6 K/uL (0.1-1.30); MONOCYTES % (AUTO) 4.5 % (2.0-12.0); NEUTROPHILS # (AUTO) 10.4 K/uL (1.8-8.9); NEUTROPHILS % (AUTO) 80.7 % (43.0-81.0); PLATELET COUNT (AUTO) 460 K/uL (150-450); RED BLOOD CELL COUNT(AUTO) 4.12 MIL/uL (4.5-6.0); WHITE BLOOD COUNT (AUTO) 12.9 K/uL (4.3-11.0)
[2022-03-31 22:52] LABS: CALCIUM, SERUM 9.7 mg/dL (8.5-10.1); CARBON DIOXIDE 30 mmol/L (21-32); CHLORIDE 98 mmol/L (98-107); CREATININE 1.4 mg/dL (0.6-1.3); GLUCOSE 148 mg/dL (74-106); POTASSIUM 4.5 mmol/L (3.5-5.1); SODIUM SERUM 136 mmol/L (136-145); UREA NITROGEN, BLOOD 33 mg/dL (7-18)
[2022-03-31 23:05] LABS: ALANINE AMINOTRANSFERASE 30 U/L (12-78); ALBUMIN 3.1 g/dL (3.4-5.0); ALKALINE PHOSPHATASE 69 U/L (46-116); ASPARTATE AMINOTRANSFERASE 16 U/L (15-37); BILIRUBIN,DIRECT 0.1 mg/dL (0.0-0.2); BILIRUBIN,TOTAL 0.2 mg/dL (0.2-1.0); TOTAL PROTEIN, SERUM 8.1 g/dL (6.4-8.2)
[2022-03-31] MEDS ORDERED: CEFEPIME 1 GM VIAL ONE (23:12)
[2022-03-31] MEDS: CEFEPIME 2 GM in IV D5W 100 ML IV SCH (23:20)
[2022-03-31] MEDS ORDERED: ASPIRIN 300 MG/SUPP.RECT RC ONE ×2 (23:30→23:38)
[2022-03-31] MEDS ORDERED: ASPIRIN 325 MG TABLET ONE (23:50)
[2022-03-31] MEDS ORDERED: LIDOCAINE 2% JEL UROJET 10 ML MM ONE (23:50)
[2022-04-01] MEDS ORDERED: ASPIRIN 325 MG TABLET GT ONE
--- NOTE | 2022-04-01 00:22 | NUR ---
URINE SAMPLE COLLECTED
[2022-04-01] MEDS ORDERED: DEXTROSE 50%-WATER 50 ML DISP.SYRIN IV PRN (00:30)
[2022-04-01] MEDS ORDERED: MAG HYDROX/AL HYDROX/SIMETH 30 ML UDC PO PRN (00:30)
[2022-04-01] MEDS ORDERED: MAGNESIUM HYDROXIDE 30 ML UDC GT PRN (00:30)
[2022-04-01] MEDS ORDERED: ZOLPIDEM TARTRATE 5 MG TABLET PO PRN (00:30)
[2022-04-01] MEDS ORDERED: LORAZEPAM 1 MG TABLET GT PRN (00:30)
[2022-04-01] MEDS ORDERED: Z GUARD REMEDY 4 OZ OINT TP PRN (00:30)
[2022-04-01] MEDS ORDERED: BISACODYL SUPP (10 MG) 10 MG/SUPP.RECT SUPP.RECT RC PRN (00:30)
[2022-04-01] MEDS ORDERED: MAGNESIUM HYDROXIDE 30 ML UDC PO PRN (00:30)
[2022-04-01 00:41] LABS: BILIRUBIN,URINE NEGATIVE (NEGATIVE); COLOR,URINE YELLOW (YELLOW); LEUKOCYTE ESTERASE ,URINE NEGATIVE (NEGATIVE); NITRITE, URINE NEGATIVE (NEGATIVE); PROTEIN,URINE 1+ mg/dl (NEGATIVE); UGLUCOSE NEGATIVE (NEGATIVE)
--- NOTE | 2022-04-01 00:45 | NUR ---
EYEGLASS FRAMES INSPECTOR AT PT'S BEDSIDE
--- NOTE | 2022-04-01 01:10 | NUR ---
ROOM 116
--- NOTE | 2022-04-01 01:32 | NUR ---
TROP 257 AND LACTIC ACID 2.24
--- NOTE | 2022-04-01 01:43 | NUR ---
REPORT GIVEN TO SUMMER BLAKELY
[2022-04-01] MEDS: ONDANSETRON HCL/PF 4 MG/2 ML VIAL IVP PRN (02:14)
--- NOTE | 2022-04-01 02:16 | NUR ---
PT TRANSFERRED TO [facility] VIA ACLS PROTOCOL WITH RT. DURING TRANSPORT PT HAD EMESISX2. ADMINISTERED ZOFRAN 4MG IVP PRN. ENDORSED TO SUMMER [facility] RN FOR SARWAT.
--- NOTE | 2022-04-01 02:20 | NUR ---
RN ADMITTING NOTE RECEIVED PATIENT FROM ER VIA [place] ACCOMPANIED BY THO RN AND NATALIE RN, VIA ACLS PROTOCOL. PATIENT AO X 0, SATURATION AT 99% ON 5L VIA TRACH TO T-PIECE, ST ON THE MONITOR, HR IS 108. BRODY PICC LINE PATENT AND FLUSHING WELL, STARTED IV FLUID OF NS AT 75 ML/HR. GTUBE IN PLACE, CLAMPED. COMPREHENSIVE ASSESSMENT DONE, NO SKIN ISSUES NOTED. SAFETY MEASURES IMPLEMENTED, HOB ELEVATED, BED IS LOCKED AND AT LOWEST POSITION, CALL LIGHT WITHIN REACH OF PATIENT. WILL CONT TO MONITOR AND CARRY OUT MD ORDERS.
[2022-04-01 02:30] VITALS: BP 113/77
[2022-04-01] MEDS ORDERED: ACETAMINOPHEN 650 MG/20.3 ML UDC GT PRN (02:30)
[2022-04-01] MEDS: IV NS 0.9% 1,000 ML IV PRN ×2 (02:45→18:03)
[2022-04-01] MEDS ORDERED: CEFEPIME 2 GM in IV D5W 100 ML IV SCH (05:00)
[2022-04-01] MEDS: BLOOD SUGAR DIAGNOSTIC 1 EACH STRIP IN SCH ×3 (05:16→17:14)
[2022-04-01] MEDS: ALBUTEROL FS 2.5 MG/3 ML VIAL.NEB NEB SCH ×4 (05:36→23:11)
[2022-04-01] MEDS: IPRATROPIUM NEB FS 0.5 MG/2.5 ML AMPUL.NEB NEB SCH ×4 (05:36→23:11)
[2022-04-01] MEDS: CEFEPIME 2 GM in IV D5W 100 ML IV SCH ×3 (06:55→21:04)
--- NOTE | 2022-04-01 07:59 | NUR ---
RN NOTE PT RECEIVED IN BED. GTUBE IN PLACE, CLAMPED AT THIS TIME. PER [facility] DOCTOR NOTE, TO RESUME TUBE FEEDING. PER FIELD GEOLOGIST, PT EXPERIENCED TWO EPISODES OF LARGE EMESIS. WILL HOLD ANY FEEDING AND GTUBE MEDICATION AT THIS TIME UNTIL PT IS ASSESSED BY MD.
[2022-04-01 08:00] VITALS: BP 134/81
[2022-04-01] MEDS: PANTOPRAZOLE 40 MG VIAL IV SCH (08:15)
[2022-04-01] MEDS: HEPARIN SODIUM, PORCINE 5000 UNITS/1 ML VIAL SQ SCH ×2 (08:19→21:03)
[2022-04-01 08:20] LABS: BASOPHILS # (AUTO) 0.1 K/uL (0.0-0.2); BASOPHILS % (AUTO) 0.5 % (0.0-2.0); EOSINOPHILS % (AUTO) 2.1 % (0.0-6.0); HEMATOCRIT 36 % (39-51); HEMOGLOBIN 11.5 g/dL (13.5-17.5); LYMPHOCYTES # (AUTO) 1.6 K/uL (0.8-4.8); MEAN CORPUSCULAR HGB CONC 32 g/dl (31.0-36.0); MEAN CORPUSCULAR VOLUME 91 fL (80-96); MONOCYTES # (AUTO) 0.9 K/uL (0.1-1.30); NEUTROPHILS # (AUTO) 11.7 K/uL (1.8-8.9); NEUTROPHILS % (AUTO) 80.4 % (43.0-81.0); PLATELET COUNT (AUTO) 429 K/uL (150-450); RED BLOOD CELL COUNT(AUTO) 3.92 MIL/uL (4.5-6.0); WHITE BLOOD COUNT (AUTO) 14.6 K/uL (4.3-11.0)
[2022-04-01 08:38] LABS: CALCIUM, SERUM 9.2 mg/dL (8.5-10.1); CREATININE 1.2 mg/dL (0.6-1.3); MAGNESIUM 2.6 mg/dL (1.8-2.4); PHOSPHORUS 3.6 mg/dL (2.5-4.9)
[2022-04-01] MEDS: DOCUSATE SODIUM LIQ 100 MG/10 ML UDC GT SCH (09:00)
[2022-04-01] MEDS: LACOSAMIDE ORAL SOLN 50 MG/5 ML UDC GT SCH ×2 (09:00→21:00)
[2022-04-01] MEDS: METOPROLOL TARTRATE 50 MG TABLET GT SCH ×2 (09:00→16:18)
[2022-04-01] MEDS: METOCLOPRAMIDE HCL 10 MG TABLET GT SCH ×4 (09:00→21:00)
[2022-04-01] MEDS: LEVETIRACETAM SOL (5 ML) 100 MG/ML UDC GT SCH ×2 (09:00→21:00)
[2022-04-01] MEDS: ASPIRIN 81 MG TAB.CHEW GT SCH (09:00)
[2022-04-01] MEDS: QUETIAPINE FUMARATE 25 MG TABLET GT SCH ×2 (09:00→21:00)
--- NOTE | 2022-04-01 09:09 | NUR ---
RN NOTE PER DR. MACDONALD, HOLD GT TUBE MEDICATION AND FEEDING UNTIL ABD XRAY TO CONFIRM EMESIS IS NOT DUE TO BOWEL OBSTRUCTION.
[2022-04-01 12:00] VITALS: BP 115/68
--- NOTE | 2022-04-01 15:34 | NUR ---
RN NOTE RADIOLOGY CALLED REGARDING KUB. RADIOLOGY STATE THEY WILL DO IT TODAY.
[2022-04-01 16:00] VITALS: BP 132/84
[2022-04-01] MEDS: LATANOPROST EYE DROP 0.005% 2.5 ML BOTTLE EACHEYE SCH (17:34)
--- NOTE | 2022-04-01 18:41 | NUR ---
RN NOTE CALLED XRAY X2 REGARDING [facility]. PHOTOENGRAVING PRINTER VERBALIZE THEY WILL LOOK INTO IT TODAY. STILL WAITING ON PHOTOENGRAVING PRINTER TO PERFORM EXAM.
--- NOTE | 2022-04-01 19:45 | NUR ---
DUPLICATE MAKER OPENING NOTES RECEIVED PATIENT IN BED A/O X 0, SATURATION AT 99% ON 5L VIA TRACH TO T-PIECE, ST ON THE MONITOR, HR IS 10O'S. WITH BRODY PICC LINE PATENT AND FLUSHING WELL,WITH IV FLUID OF NS AT 75 ML/HR. GTUBE IN PLACE, CLAMPED. WILL HOLD ANY FEEDING AND GTUBE MEDICATION AT THIS TIME UNTIL PT IS ASSESSED BY MD, SAFETY MEASURES IMPLEMENTED, HOB ELEVATED, BED IS LOCKED AND AT LOWEST POSITION, CALL LIGHT WITHIN REACH OF PATIENT. WILL CONT TO MONITOR THROUGHOUT THE SHIFT.
[2022-04-01 20:00] VITALS: BP 142/72
[2022-04-01] MEDS: ATORVASTATIN 40 MG TABLET GT SCH (22:00)
[2022-04-01] MEDS: INSULIN GLARGINE, 100 UNIT/ML CARTRIDGE SQ SCH (22:00)
--- NOTE | 2022-04-01 22:45 | NUR ---
RN NOTE CALLED XRAY REGARDING [facility]. NETWORK MGR VERBALIZED THEY ERE STILL AT THE ER, WORKING ON OTHER PATIENT, STILL AWAITING ON NETWORK MGR TO PERFORM EXAM.
[2022-04-02] VITALS: BP 136/83
[2022-04-02] MEDS: BLOOD SUGAR DIAGNOSTIC 1 EACH STRIP IN SCH ×4 (00:32→17:05)
--- NOTE | 2022-04-02 02:30 | NUR ---
RN NOTE CALLED XRAY TO FOLLOW UP K[facility]. STRADDLE BUG CHEYANNE VERBALIZED, THEY'LL TAKE IT THIS MORNING. CN MADE AWARE. WILL CONT TO MONITOR PT.
--- NOTE | 2022-04-02 03:16 | NUR ---
RN NOTE NOTED PT WITH INCREASING ANXIETY; TRYING TO PULL OUT LINES AND TRACHEOSTOMY. PT ON NPO STATUS WITH MEDS. INFORMED LABOR RELATIONS TEACHER MD. ORDERED TO CHANGE ATIVAN IV 0.5MG AND B SOFT WRIST RESTRAINTS TO PREVENT SELF-INJURY. ORDER TAKEN AND CARRIED OUT.
--- NOTE | 2022-04-02 03:26 | NUR ---
RN NOTE PT GIVEN ATIVAN 0.5 MG. PARTIAL DOSE WASTED WITH RN GILDA. WILL CONT TO MONITOR PT.
[2022-04-02] MEDS ORDERED: LORAZEPAM INJ 2 MG/ML VIAL IV PRN (03:30)
[2022-04-02 04:00] VITALS: BP 125/80
[2022-04-02] MEDS: IPRATROPIUM NEB FS 0.5 MG/2.5 ML AMPUL.NEB NEB SCH ×3 (05:04→18:00)
[2022-04-02] MEDS: ALBUTEROL FS 2.5 MG/3 ML VIAL.NEB NEB SCH ×2 (05:04→12:00)
[2022-04-02 05:23] LABS: ABG BASE EXCESS -2.6 mmol/L; ABG PCO2 30.7 mmHg (35.0-45.0); ABG PH 7.446 (7.350-7.450); ABG PO2 90.9 mmHg (75.0-100.0); AaDO2 72.5 mmHg; COHb 0.9 % (0.5-1.5); MetHb 0.3 % (0.0-1.5); O2Hb 94.8 % (94.0-97.0); SITE, ABG Left Brachial
--- NOTE | 2022-04-02 05:32 | NUR ---
RN NOTE ABG RESULT RELAYED TO BOILER PLANT OPERATOR MD. VACA AT THIS TIME.
[2022-04-02] MEDS: CEFEPIME 2 GM in IV D5W 100 ML IV SCH ×3 (05:41→21:07)
[2022-04-02] MEDS: IV NS 0.9% 1,000 ML IV PRN (05:53)
--- NOTE | 2022-04-02 07:00 | NUR ---
RN NOTES RECEIVED PATIENT IN BED ALERT/ FOLLOWS SIMPLE COMMAND, , TRACH DEPENDENT WITH T-PIECE , TRACH CARE DONE, O2 SAT WNL . ON TELE ST HR IN 100'S , LEFT UPPER ARM MIDLINE SITE ,CDI, ,WITH IV FLUID OF NS AT 75 ML/HR. G TUBE IN PLACE, CLAMPED. PT IS NPO AT THIS TIME, SAFETY MEASURES IMPLEMENTED, HOB ELEVATED, BED IS LOCKED AND AT LOWEST POSITION, CALL LIGHT WITHIN EASY REACH , WILL CONT TO MONITOR THROUGHOUT THE SHIFT.
--- NOTE | 2022-04-02 07:16 | NUR ---
BACK END DEVELOPER CLOSING NOTES PATIENT REMAINS IN BED A/O X 0, SATURATION AT 99% ON 5L VIA TRACH TO T-PIECE, ST ON THE MONITOR, HR IS 10O'S. WITH BRODY PICC LINE PATENT AND FLUSHING WELL,WITH IV FLUID OF NS AT 75 ML/HR. GTUBE IN PLACE, CLAMPED. STILL HOLDING ANY FEEDING AND GTUBE MEDICATION AT THIS TIME UNTIL [facility] XRAY AND PT IS ASSESSED BY MD, DUE MEDS GIVEN EXCEPT PO MEDS, SAFETY MEASURES IMPLEMENTED, HOB ELEVATED, BED IS LOCKED AND AT LOWEST POSITION, CALL LIGHT WITHIN REACH OF PATIENT. WILL ENDORSE TO AM SHIFT NURSE FOR CONTINUITY OF CARE.
[2022-04-02 07:57] LABS: CALCIUM, SERUM 9.4 mg/dL (8.5-10.1); MAGNESIUM 2.3 mg/dL (1.8-2.4); PHOSPHORUS 2.2 mg/dL (2.5-4.9)
[2022-04-02 08:00] VITALS: BP 136/87
[2022-04-02] MEDS: QUETIAPINE FUMARATE 25 MG TABLET GT SCH ×2 (08:08→21:04)
[2022-04-02] MEDS: LEVETIRACETAM SOL (5 ML) 100 MG/ML UDC GT SCH ×2 (08:08→21:06)
[2022-04-02] MEDS: DOCUSATE SODIUM LIQ 100 MG/10 ML UDC GT SCH (08:08)
[2022-04-02] MEDS: PANTOPRAZOLE 40 MG VIAL IV SCH (08:08)
[2022-04-02] MEDS: METOPROLOL TARTRATE 50 MG TABLET GT SCH ×2 (08:10→16:37)
[2022-04-02] MEDS: METOCLOPRAMIDE HCL 10 MG TABLET GT SCH ×4 (08:10→21:05)
[2022-04-02] MEDS: ASPIRIN 81 MG TAB.CHEW GT SCH (08:11)
[2022-04-02] MEDS: LACOSAMIDE ORAL SOLN 50 MG/5 ML UDC GT SCH ×2 (08:13→21:04)
[2022-04-02] MEDS: HEPARIN SODIUM, PORCINE 5000 UNITS/1 ML VIAL SQ SCH (08:14)
[2022-04-02 09:42] LABS: BASOPHILS # (AUTO) 0.1 K/uL (0.0-0.2); BASOPHILS % (AUTO) 0.6 % (0.0-2.0); EOSINOPHILS % (AUTO) 8.6 % (0.0-6.0); HEMATOCRIT 36 % (39-51); HEMOGLOBIN 11.2 g/dL (13.5-17.5); LYMPHOCYTES # (AUTO) 1.1 K/uL (0.8-4.8); LYMPHOCYTES % (AUTO) 8.5 % (20.0-44.0); MEAN CORPUSCULAR HGB CONC 32 g/dl (31.0-36.0); MEAN CORPUSCULAR VOLUME 91 fL (80-96); MONOCYTES % (AUTO) 7.8 % (2.0-12.0); NEUTROPHILS # (AUTO) 9.5 K/uL (1.8-8.9); NEUTROPHILS % (AUTO) 74.5 % (43.0-81.0); PLATELET COUNT (AUTO) 460 K/uL (150-450); WHITE BLOOD COUNT (AUTO) 12.7 K/uL (4.3-11.0)
[2022-04-02] MEDS ORDERED: Sodium Phosphate 30 MMOL in IV NS 0.9% 250 ML IV SCH (11:00)
[2022-04-02] MEDS ORDERED: DEXT38GE12 GT (11:32)
[2022-04-02] MEDS ORDERED: NUTR1PAC14 GT (11:32)
[2022-04-02] MEDS ORDERED: SENN-261 GT (11:32)
[2022-04-02] MEDS ORDERED: NUT.237L30 GT (11:32)
[2022-04-02] MEDS ORDERED: GLUC1KIT IM (11:32)
[2022-04-02] MEDS ORDERED: MULT-447 GT (11:32)
[2022-04-02] MEDS ORDERED: ZINC1CAP3 GT (11:32)
[2022-04-02] MEDS ORDERED: IPRA0.2S9 IH (11:32)
[2022-04-02] MEDS ORDERED: FERR300L GT (11:32)
[2022-04-02] MEDS ORDERED: CRAN425C6 GT (11:32)
[2022-04-02] MEDS ORDERED: ALBU2.5V38 IH (11:32)
--- NOTE | 2022-04-02 11:38 | NUR ---
WOUND CARE CONSULT: PT PRESENTS WITH SACRAL SCARRING AND SCARRING TO UPPER CHEST AREA WELL LOWER EXTREMITY SCARRING, PRESENT ON ADMISSION. RECOMMENDATIONS MADE FOR SKIN PROTECTION. DISCUSSED WITH NURSING STAFF. PT IS ON MIDDLE BASS ISOFLEX LOW AIRLOSS BED. IN AGREEMENT WITH PLAN OF CARE.
[2022-04-02 12:00] VITALS: BP 130/76
--- NOTE | 2022-04-02 12:00 | NUR ---
RN NOTES TRACH CARE DONE, CONTINUE TO MONITOR .
[2022-04-02 16:00] VITALS: BP 146/95
[2022-04-02] MEDS: LATANOPROST EYE DROP 0.005% 2.5 ML BOTTLE EACHEYE SCH (17:06)
--- NOTE | 2022-04-02 18:27 | NUR ---
RN NOTE PATIENT REMAINS IN BED ALERT , DOES NOT FOLLOW COMMAND, T-PIECE AT 28% FIO2, ST ON THE MONITOR, HR IS 10O'S. WITH BRODY PICC LINE PATENT AND FLUSHING WELL,WITH IV FLUID OF NS AT 75 ML/HR. GTUBE IN PLACE, CLAMPED. SAFETY MEASURES IMPLEMENTED, HOB ELEVATED, BED IS LOCKED AND AT LOWEST POSITION, CALL LIGHT WITHIN EASY REACH , WILL ENDORSE TO APPLIANCE WORKER NURSE FOR CONTINUITY OF CARE.
[2022-04-02 20:00] VITALS: BP 138/74
[2022-04-02] MEDS: ATORVASTATIN 40 MG TABLET GT SCH (21:05)
[2022-04-02] MEDS: ENOXAPARIN SODIUM 80 MG/0.8 ML DISP.SYRIN SQ SCH (21:09)
[2022-04-02] MEDS: INSULIN GLARGINE, 100 UNIT/ML CARTRIDGE SQ SCH (21:54)
[2022-04-03] VITALS: BP_SYST 109; BP_SYST 152; BP_DIAS 64; BP_DIAS 75
[2022-04-03] MEDS: BLOOD SUGAR DIAGNOSTIC 1 EACH STRIP IN SCH ×5 (00:01→21:49)
[2022-04-03] MEDS: IPRATROPIUM NEB FS 0.5 MG/2.5 ML AMPUL.NEB NEB SCH ×4 (02:04→13:45)
[2022-04-03] MEDS: ALBUTEROL FS 2.5 MG/3 ML VIAL.NEB NEB SCH ×4 (02:04→20:20)
[2022-04-03 04:00] VITALS: BP 149/82
[2022-04-03] MEDS: CEFEPIME 2 GM in IV D5W 100 ML IV SCH ×3 (05:35→21:44)
[2022-04-03] MEDS: INSULIN REGULAR, HUMAN 100 UNIT/ML 3 ML VIAL SQ PRN (06:07)
[2022-04-03] MEDS: IV NS 0.9% 1,000 ML IV PRN (06:16)
--- NOTE | 2022-04-03 07:00 | NUR ---
RN NOTES RECEIVED PATIENT ON BED ALERT/ FOLLOWS SIMPLE COMMAND, , TRACH DEPENDENT WITH T-PIECE , TRACH CARE DONE, O2 SAT WNL . ON TELE SR HR IN 60'S, , LEFT UPPER ARM MIDLINE SITE ,CDI, ,WITH IV FLUID OF NS AT 75 ML/HR. G TUBE IN PLACE, CLAMPED. PT IS NPO AT THIS TIME, SAFETY MEASURES IMPLEMENTED, HOB ELEVATED, BED IS LOCKED AND AT LOWEST POSITION, CALL LIGHT WITHIN EASY REACH , WILL CONTINUE TO MONITOR .
--- NOTE | 2022-04-03 07:19 | NUR ---
RN NOTES, PATIENT ASLEEP AT THIS TIME, OPEN EYES, UNABLE TO FOLLOW COMMANDS, ON TPC WITH COOL AEROSOL, TOLERATED WELL, NO SOB/ACUTE DISTRESS NOTED, WITH OPTIMAL O2 SAT LEVEL, SUCTIONING AND BREATHING TX ORDERED, CONTINUE NPO, BLOOD SUGAR WNL, WITH NO COVERAGE, OTHERWISE NO SIGNIFICANT CHANGE IN CONDITION, ON BILATERAL RESTRAINS NO ABNORMALITY NOTED, NO CIRCULATION COMPROMISED, SR UP x3, CALL LIGHT WITHIN REACH, BED LOCKED AND IN LOWEST POSITION , ENDORSED TO ADRIANA RN FOR CONTINUATION OF CARE.
[2022-04-03 07:36] LABS: BASOPHILS # (AUTO) 0.1 K/uL (0.0-0.2); BASOPHILS % (AUTO) 0.9 % (0.0-2.0); EOSINOPHILS % (AUTO) 13.2 % (0.0-6.0); HEMATOCRIT 37 % (39-51); HEMOGLOBIN 11.8 g/dL (13.5-17.5); LYMPHOCYTES % (AUTO) 15.9 % (20.0-44.0); MEAN CORPUSCULAR HGB CONC 32 g/dl (31.0-36.0); MEAN CORPUSCULAR VOLUME 92 fL (80-96); MONOCYTES # (AUTO) 0.7 K/uL (0.1-1.30); NEUTROPHILS # (AUTO) 3.8 K/uL (1.8-8.9); PLATELET COUNT (AUTO) 449 K/uL (150-450); RED BLOOD CELL COUNT(AUTO) 4.03 MIL/uL (4.5-6.0); WHITE BLOOD COUNT (AUTO) 6.5 K/uL (4.3-11.0)
[2022-04-03 08:00] VITALS: BP 154/81
[2022-04-03 08:07] LABS: CALCIUM, SERUM 9.2 mg/dL (8.5-10.1); CREATININE 0.9 mg/dL (0.6-1.3); MAGNESIUM 2.2 mg/dL (1.8-2.4); PHOSPHORUS 3.3 mg/dL (2.5-4.9); POTASSIUM 3.9 mmol/L (3.5-5.1)
[2022-04-03] MEDS: ASPIRIN 81 MG TAB.CHEW GT SCH (08:38)
[2022-04-03] MEDS: LEVETIRACETAM SOL (5 ML) 100 MG/ML UDC GT SCH ×2 (08:39→21:45)
[2022-04-03] MEDS: DOCUSATE SODIUM LIQ 100 MG/10 ML UDC GT SCH (08:39)
[2022-04-03] MEDS: PANTOPRAZOLE 40 MG VIAL IV SCH (08:40)
[2022-04-03] MEDS: METOCLOPRAMIDE HCL 10 MG TABLET GT SCH ×4 (08:40→21:43)
[2022-04-03] MEDS: LACOSAMIDE ORAL SOLN 50 MG/5 ML UDC GT SCH ×2 (08:40→21:45)
[2022-04-03] MEDS: METOPROLOL TARTRATE 50 MG TABLET GT SCH ×2 (08:42→16:09)
[2022-04-03] MEDS: QUETIAPINE FUMARATE 25 MG TABLET GT SCH ×2 (08:42→21:43)
[2022-04-03] MEDS: ENOXAPARIN SODIUM 80 MG/0.8 ML DISP.SYRIN SQ SCH ×2 (08:43→21:46)
[2022-04-03] MEDS ORDERED: GLUCERNA 1.2 1,000 ML BOTTLE NG PRN (09:00)
[2022-04-03] MEDS: GLUCERNA 1.2 1,000 ML BOTTLE NG PRN (10:39)
--- NOTE | 2022-04-03 10:40 | NUR ---
RN NOTES TF RESTARTED AT 30CC /HR PER MD ORDER , CONTINUE TO MONITOR .
--- NOTE | 2022-04-03 11:00 | NUR ---
RN NOTES DR MACDONALD NOTIFIED REGARDING BLOOD CULTURE RESULTS (ANAEROBIC GRAM POSITIVE COCCI ) , NO NEW ORDER GIVEN .
[2022-04-03] MEDS: VANCOMYCIN 1.25 GM in IV D5W 250 ML IV SCH (11:49)
[2022-04-03 12:00] VITALS: BP 135/73
[2022-04-03 16:00] VITALS: BP 140/72
[2022-04-03] MEDS: LATANOPROST EYE DROP 0.005% 2.5 ML BOTTLE EACHEYE SCH (16:57)
--- NOTE | 2022-04-03 18:31 | NUR ---
RN NOTES NO SIGNIFCANT CHANGES NOTED ON THIS SHIFT, TOLERAING TF AT 30CC/HR WELL, IV SITE , CDI, WILL ENDOSE TO DUMPSTER OPERATOR NURSE FOR CONTINUITY OF CARE .
[2022-04-03 20:00] VITALS: BP 148/70
[2022-04-03] MEDS: ATORVASTATIN 40 MG TABLET GT SCH (21:44)
[2022-04-03] MEDS: INSULIN GLARGINE, 100 UNIT/ML CARTRIDGE SQ SCH (21:51)
[2022-04-04] VITALS: BP 141/66
[2022-04-04] MEDS: VANCOMYCIN 1.25 GM in IV D5W 250 ML IV SCH ×3 (00:10→23:03)
[2022-04-04] MEDS: IV NS 0.9% 1,000 ML IV PRN ×2 (00:13→18:15)
[2022-04-04] MEDS: ALBUTEROL FS 2.5 MG/3 ML VIAL.NEB NEB SCH ×4 (01:24→19:58)
[2022-04-04] MEDS: IPRATROPIUM NEB FS 0.5 MG/2.5 ML AMPUL.NEB NEB SCH ×4 (01:24→19:58)
[2022-04-04 04:00] VITALS: BP 139/70
[2022-04-04] MEDS: CEFEPIME 2 GM in IV D5W 100 ML IV SCH ×3 (04:47→20:30)
[2022-04-04] MEDS: BLOOD SUGAR DIAGNOSTIC 1 EACH STRIP IN SCH ×4 (05:12→23:00)
[2022-04-04] MEDS: INSULIN REGULAR, HUMAN 100 UNIT/ML 3 ML VIAL SQ PRN ×3 (05:12→17:12)
--- NOTE | 2022-04-04 07:28 | NUR ---
RN NOTES PATIENT ASLEEP AT THIS TIME, OPEN EYES, UNABLE TO FOLLOW COMMANDS, ON TPC WITH COOL AEROSOL, TOLERATED WELL, NO SOB/ACUTE DISTRESS NOTED, WITH OPTIMAL O2 SAT LEVEL,ON BILATERAL RESTRAINS NO ABNORMALITY NOTED, NO CIRCULATION COMPROMISED, SR UP x3, CALL LIGHT WITHIN REACH, BED LOCKED AND IN LOWEST POSITION .
[2022-04-04 08:00] VITALS: BP 150/87
[2022-04-04 08:09] LABS: CALCIUM, SERUM 8.9 mg/dL (8.5-10.1); CREATININE 0.9 mg/dL (0.6-1.3); MAGNESIUM 2.1 mg/dL (1.8-2.4); POTASSIUM 3.9 mmol/L (3.5-5.1)
[2022-04-04 08:18] LABS: BASOPHILS # (AUTO) 0.1 K/uL (0.0-0.2); BASOPHILS % (AUTO) 0.9 % (0.0-2.0); EOSINOPHILS % (AUTO) 12.6 % (0.0-6.0); HEMATOCRIT 35 % (39-51); HEMOGLOBIN 11.3 g/dL (13.5-17.5); LYMPHOCYTES # (AUTO) 1.5 K/uL (0.8-4.8); MEAN CORPUSCULAR HGB CONC 33 g/dl (31.0-36.0); MEAN CORPUSCULAR VOLUME 91 fL (80-96); MONOCYTES # (AUTO) 0.7 K/uL (0.1-1.30); MONOCYTES % (AUTO) 9.1 % (2.0-12.0); NEUTROPHILS # (AUTO) 4.4 K/uL (1.8-8.9); NEUTROPHILS % (AUTO) 57.4 % (43.0-81.0); PLATELET COUNT (AUTO) 411 K/uL (150-450); RED BLOOD CELL COUNT(AUTO) 3.81 MIL/uL (4.5-6.0); WHITE BLOOD COUNT (AUTO) 7.7 K/uL (4.3-11.0)
[2022-04-04] MEDS: LACOSAMIDE ORAL SOLN 50 MG/5 ML UDC GT SCH ×2 (08:50→20:28)
[2022-04-04] MEDS: LEVETIRACETAM SOL (5 ML) 100 MG/ML UDC GT SCH ×2 (08:51→20:28)
[2022-04-04] MEDS: QUETIAPINE FUMARATE 25 MG TABLET GT SCH ×2 (08:51→20:29)
[2022-04-04] MEDS: DOCUSATE SODIUM LIQ 100 MG/10 ML UDC GT SCH (08:51)
[2022-04-04] MEDS: PANTOPRAZOLE 40 MG VIAL IV SCH (08:51)
[2022-04-04] MEDS: METOCLOPRAMIDE HCL 10 MG TABLET GT SCH ×4 (08:52→20:29)
[2022-04-04] MEDS: ASPIRIN 81 MG TAB.CHEW GT SCH (08:52)
[2022-04-04] MEDS: METOPROLOL TARTRATE 50 MG TABLET GT SCH ×2 (08:52→16:08)
[2022-04-04] MEDS: ENOXAPARIN SODIUM 80 MG/0.8 ML DISP.SYRIN SQ SCH (08:54)
--- NOTE | 2022-04-04 09:00 | NUR ---
RN NOTE PATIENT HAD ONE EPISODE OF EMESIS APPROX 60CC. NO RESIDUAL NOTED ON TUBE FEEDING WILL HOLD TF FOR 1HR AND RESUME AT A LOW RATER
--- NOTE | 2022-04-04 10:30 | NUR ---
RN NOTE RESUMED TUBE FEEDING 50 MLS/HR. WILL MONITOR FOR EMESIS
[2022-04-04 12:00] VITALS: BP 107/69
--- NOTE | 2022-04-04 12:00 | NUR ---
RN NOTE ONE EPISODE OF EMESIS. NO RESIDUAL NOTED WILL HOLD TF ONE HR.
--- NOTE | 2022-04-04 13:43 | NUR ---
RN NOTE EMESIS NOTED SMALL AMOUNT WILL ADMIN ZOFRAN AND HOLD TUBE FEEDING
[2022-04-04] MEDS: ONDANSETRON HCL/PF 4 MG/2 ML VIAL IVP PRN (13:45)
[2022-04-04 16:21] VITALS: BP 158/84
[2022-04-04] MEDS: LATANOPROST EYE DROP 0.005% 2.5 ML BOTTLE EACHEYE SCH (17:13)
--- NOTE | 2022-04-04 18:18 | NUR ---
RN NOTE RESUMED TUBE FEEDING 15MLS/HR- NO RESIDUAL NOTED
--- NOTE | 2022-04-04 18:38 | NUR ---
RN CLOSING NOTE PATIENT REMAINS IN BED ALERT , DOES NOT FOLLOW COMMAND, T-PIECE AT 28% FIO2, ST ON THE MONITOR, HR IS 10O'S. WITH BRODY PICC LINE PATENT AND FLUSHING WELL,WITH IV FLUID OF NS AT 75 ML/HR. GTUBE IN PLACE, CLAMPED AT THIS TIME DUE TO PATIENT HAVING 3 EMESIS EPISODES.PATIENT IN A HIGH FOWLERS POSITION. SAFETY MEASURES IMPLEMENTED, HOB ELEVATED, BED IS LOCKED AND AT LOWEST POSITION, CALL LIGHT WITHIN EASY REACH , WILL ENDORSE TO CAPACITY PLANNING ANALYST NURSE FOR CONTINUITY OF CARE.
[2022-04-04 20:00] VITALS: BP 146/83
--- NOTE | 2022-04-04 20:01 | NUR ---
RT pt received on CA 28%. trached, shiley 6. diminished lung sounds throughout. scant clear secretions. spare trach at bedside. ambu bag at bedside. no sob, no resp distress.
[2022-04-04] MEDS: ATORVASTATIN 40 MG TABLET GT SCH (20:29)
[2022-04-04] MEDS: INSULIN GLARGINE, 100 UNIT/ML CARTRIDGE SQ SCH (23:18)
[2022-04-05] VITALS: BP 139/72
[2022-04-05] MEDS: ALBUTEROL FS 2.5 MG/3 ML VIAL.NEB NEB SCH ×4 (02:00→19:52)
[2022-04-05] MEDS: IPRATROPIUM NEB FS 0.5 MG/2.5 ML AMPUL.NEB NEB SCH ×4 (02:00→19:52)
[2022-04-05 04:00] VITALS: BP 147/83
[2022-04-05] MEDS: CEFEPIME 2 GM in IV D5W 100 ML IV SCH ×3 (04:15→21:35)
[2022-04-05] MEDS: BLOOD SUGAR DIAGNOSTIC 1 EACH STRIP IN SCH ×3 (06:50→17:17)
--- NOTE | 2022-04-05 07:37 | NUR ---
RN NOTES PATIENT ASLEEP AT THIS TIME, OPEN EYES, UNABLE TO FOLLOW COMMANDS, ON TPC WITH COOL AEROSOL, TOLERATED WELL, NO SOB/ACUTE DISTRESS NOTED, WITH OPTIMAL O2 SAT LEVEL,ON BILATERAL RESTRAINS NO ABNORMALITY NOTED, NO CIRCULATION COMPROMISED, SR UP x3, CALL LIGHT WITHIN REACH, BED LOCKED AND IN LOWEST POSITION G TUBE RUNNING RUINING GLUCERNA 1.5 AT 30MLS DUE TO EMESIS LAST NIGHT CURRENTLY TOLERATING WELL NO RESIDUAL. SAFETY MEASURES IN PLACE
[2022-04-05 07:43] LABS: BASOPHILS # (AUTO) 0.1 K/uL (0.0-0.2); BASOPHILS % (AUTO) 0.7 % (0.0-2.0); EOSINOPHILS % (AUTO) 13.6 % (0.0-6.0); HEMATOCRIT 34 % (39-51); LYMPHOCYTES # (AUTO) 1.3 K/uL (0.8-4.8); MEAN CORPUSCULAR HGB CONC 32 g/dl (31.0-36.0); MEAN CORPUSCULAR VOLUME 91 fL (80-96); MONOCYTES # (AUTO) 0.6 K/uL (0.1-1.30); MONOCYTES % (AUTO) 7.3 % (2.0-12.0); NEUTROPHILS # (AUTO) 5.6 K/uL (1.8-8.9); NEUTROPHILS % (AUTO) 63.4 % (43.0-81.0); PLATELET COUNT (AUTO) 457 K/uL (150-450); RED BLOOD CELL COUNT(AUTO) 3.77 MIL/uL (4.5-6.0); WHITE BLOOD COUNT (AUTO) 8.8 K/uL (4.3-11.0)
[2022-04-05 08:00] VITALS: BP 169/97
[2022-04-05 08:44] LABS: CALCIUM, SERUM 9.3 mg/dL (8.5-10.1); CREATININE 0.9 mg/dL (0.6-1.3); MAGNESIUM 2.2 mg/dL (1.8-2.4); PHOSPHORUS 2.6 mg/dL (2.5-4.9); POTASSIUM 3.9 mmol/L (3.5-5.1)
[2022-04-05] MEDS: PANTOPRAZOLE 40 MG VIAL IV SCH (08:49)
[2022-04-05] MEDS: LEVETIRACETAM SOL (5 ML) 100 MG/ML UDC GT SCH ×2 (08:50→21:35)
[2022-04-05] MEDS: LACOSAMIDE ORAL SOLN 50 MG/5 ML UDC GT SCH ×2 (08:50→21:35)
[2022-04-05] MEDS: DOCUSATE SODIUM LIQ 100 MG/10 ML UDC GT SCH (08:50)
[2022-04-05] MEDS: QUETIAPINE FUMARATE 25 MG TABLET GT SCH ×2 (08:51→21:35)
[2022-04-05] MEDS: METOCLOPRAMIDE HCL 10 MG TABLET GT SCH ×4 (08:51→21:35)
[2022-04-05] MEDS: METOPROLOL TARTRATE 50 MG TABLET GT SCH ×2 (08:51→17:16)
[2022-04-05] MEDS: ASPIRIN 81 MG TAB.CHEW GT SCH (08:51)
[2022-04-05] MEDS: ENOXAPARIN SODIUM 40 MG/0.4 ML DISP.SYRIN SQ SCH (08:53)
[2022-04-05 12:00] VITALS: BP 149/81
[2022-04-05] MEDS: INSULIN REGULAR, HUMAN 100 UNIT/ML 3 ML VIAL SQ PRN ×2 (12:41→17:17)
[2022-04-05] MEDS: GLUCERNA 1.2 1,000 ML BOTTLE NG PRN (12:43)
[2022-04-05] MEDS ORDERED: GLUCERNA 1.2 1,000 ML BOTTLE PEG PRN (14:00)
[2022-04-05] MEDS: IV NS 0.9% 1,000 ML IV PRN (14:06)
[2022-04-05 16:00] VITALS: BP 152/71
[2022-04-05] MEDS: LATANOPROST EYE DROP 0.005% 2.5 ML BOTTLE EACHEYE SCH (17:17)
--- NOTE | 2022-04-05 18:52 | NUR ---
RN CLOSING NOTE PATIENT REMAINS IN BED ALERT , DOES NOT FOLLOW COMMAND, T-PIECE AT 28% FIO2, SR ON THE MONITOR, . WITH BRODY PICC LINE PATENT AND FLUSHING WELL,WITH IV FLUID OF NS AT 75 ML/HR. GTUBE IN PLACE, G TUBE RUNNING 50MLS/HR .PATIENT IN A HIGH FOWLERS POSITION. SAFETY MEASURES IMPLEMENTED, HOB ELEVATED, BED IS LOCKED AND AT LOWEST POSITION, CALL LIGHT WITHIN EASY REACH , WILL ENDORSE TO REFRIGERATION SYSTEM INSTALLER NURSE FOR CONTINUITY OF CARE.
--- NOTE | 2022-04-05 19:40 | NUR ---
SPRAY WORKER OPENING NOTE RECEIVED PT AWAKE IN BED. ALERT, DOES NOT FOLLOW COMMANDS. PT WITH T PIECE @ 5LPM, TOLERATING WELL. NO SOB OR S/S OF RESPIRATORY DISTRESS. ON EXTERNAL COACH MECHANIC READING SR 74 BPM. WITH G TUBE RUNNING GLUCERNA 1.2 @ 50 ML/HR, TOLERATING WELL. IV ACCESS BRODY MIDLINE RUNNING NS @ 75 ML/HR, INTQACT AND PATENT. SAFETY PRECAUTIONS IN PLACE. BED IN LOWEST LOCKED POSITION, HOB ELEVATED, SIDE RAILS UP X3, AND CALL LIGHT AND TABLE WITHIN REACH. ALL NEEDS MET AT THIS TIME.
[2022-04-05 20:00] VITALS: BP 138/81
[2022-04-05] MEDS: ATORVASTATIN 40 MG TABLET GT SCH (21:35)
[2022-04-05] MEDS: INSULIN GLARGINE, 100 UNIT/ML CARTRIDGE SQ SCH (22:07)
[2022-04-05] MEDS: VANCOMYCIN 1 GM in IV D5W 250 ML IV SCH (23:13)
[2022-04-06] VITALS: BP 150/85
[2022-04-06] MEDS: BLOOD SUGAR DIAGNOSTIC 1 EACH STRIP IN SCH ×4 (00:31→18:01)
[2022-04-06] MEDS: INSULIN REGULAR, HUMAN 100 UNIT/ML 3 ML VIAL SQ PRN ×2 (00:32→12:45)
[2022-04-06] MEDS: ONDANSETRON HCL/PF 4 MG/2 ML VIAL IVP PRN (00:37)
--- NOTE | 2022-04-06 00:55 | NUR ---
RN NOTE PT NOTED WITH 1 EPISODE OF EMESIS. HELD FEEDING AT THIS TIME. CLEANED UP PT AND BED. SUCTIONED AND TRACH CLEANED AND TUBING REPLACED. ADMINISTERED ZOFRAN 4 MG FOR EMESIS ORDERED. BLOOD SUGAR READING 149. HELD REGULAR INSULIN D/T NPO AT THIS TIME. MADE COMFORTABLE IN BED. CHARGE NURSE ANASTASIYA DIGGS.
[2022-04-06] MEDS: IPRATROPIUM NEB FS 0.5 MG/2.5 ML AMPUL.NEB NEB SCH ×4 (01:49→19:32)
[2022-04-06] MEDS: ALBUTEROL FS 2.5 MG/3 ML VIAL.NEB NEB SCH ×4 (01:49→19:32)
--- NOTE | 2022-04-06 03:30 | NUR ---
RN NOTE RESUMED PT ON FEEDING. TOLERATING WELL. NO RESIDUAL AT THIS TIME. ALL NEEDS MET AT THIS TIME.
[2022-04-06 04:00] VITALS: BP 150/90
[2022-04-06] MEDS: CEFEPIME 2 GM in IV D5W 100 ML IV SCH ×3 (05:41→21:45)
[2022-04-06 06:16] LABS: CALCIUM, SERUM 9.2 mg/dL (8.5-10.1); CREATININE 0.8 mg/dL (0.6-1.3); POTASSIUM 3.5 mmol/L (3.5-5.1)
--- NOTE | 2022-04-06 07:23 | NUR ---
PERISHABLE FRUIT INSPECTOR CLOSING NOTE PT AWAKE IN BED. ALERT, DOES NOT FOLLOW COMMANDS. PT WITH T PIECE @ 5LPM, TOLERATING WELL. NO SOB OR S/S OF RESPIRATORY DISTRESS. ON EXTERNAL TOUR DRIVER READING SR 77 BPM. WITH G TUBE HELD GLUCERNA 1.2 @ 50 ML/HR, 1 MORE EPISODE OF EMESIS AT THIS TIME. IV ACCESS BRODY MIDLINE RUNNING NS @ 75 ML/HR, INTACT AND PATENT. ALL DUE EMDS GIVEN ORDERED. KEPT CLEAN AND DRY. SAFETY PRECAUTIONS IN PLACE AT ALL TIMES. BED IN LOWEST LOCKED POSITION, HOB ELEVATED, SIDE RAILS UP X3, AND CALL LIGHT AND TABLE WITHIN REACH. ALL NEEDS MET AT THIS TIME AND WILL ENDORSE TO ONCOMING NURSE FOR SARWAT.
[2022-04-06 08:00] VITALS: BP 132/67
[2022-04-06] MEDS: LEVETIRACETAM SOL (5 ML) 100 MG/ML UDC GT SCH ×2 (09:29→21:38)
[2022-04-06] MEDS: METOCLOPRAMIDE HCL 10 MG TABLET GT SCH ×4 (09:30→21:38)
[2022-04-06] MEDS: ASPIRIN 81 MG TAB.CHEW GT SCH (09:30)
[2022-04-06] MEDS: DOCUSATE SODIUM LIQ 100 MG/10 ML UDC GT SCH (09:30)
[2022-04-06] MEDS: METOPROLOL TARTRATE 50 MG TABLET GT SCH ×2 (09:31→17:59)
[2022-04-06] MEDS: QUETIAPINE FUMARATE 25 MG TABLET GT SCH ×2 (09:31→21:38)
[2022-04-06] MEDS: PANTOPRAZOLE 40 MG/PACK PACK NG SCH (09:31)
[2022-04-06] MEDS: LACOSAMIDE ORAL SOLN 50 MG/5 ML UDC GT SCH ×2 (09:58→21:38)
[2022-04-06] MEDS: ENOXAPARIN SODIUM 40 MG/0.4 ML DISP.SYRIN SQ SCH (10:20)
[2022-04-06] MEDS: VANCOMYCIN 1 GM in IV D5W 250 ML IV SCH ×2 (11:26→23:48)
[2022-04-06 12:00] VITALS: BP 149/80
[2022-04-06] MEDS: IV NS 0.9% 1,000 ML IV PRN (15:28)
[2022-04-06 16:00] VITALS: BP 119/74
[2022-04-06] MEDS: LATANOPROST EYE DROP 0.005% 2.5 ML BOTTLE EACHEYE SCH (18:01)
--- NOTE | 2022-04-06 19:00 | NUR ---
RN CLOSING NOTE PT AWAKE IN BED. ALERT, BUT NOT VERBAL, DOES NOT FOLLOW COMMAND. PT WITH T PIECE @ 5LPM, TOLERATING WELL. NO SOB OR S/S OF RESPIRATORY DISTRESS. ON EXTERNAL MANAGER DATA READING SR 79 BPM. WITH G TUBE @50 ML/HR GLUCERNA, IV ACCESS BRODY MIDLINE RUNNING NS @ 75 ML/HR, INTACT AND PATENT. ALL DUE EMDS GIVEN CRUSHED VIA GTUBE ORDERED. KEPT CLEAN AND DRY. SAFETY PRECAUTIONS IN PLACE AT ALL TIMES. BED IN LOWEST LOCKED POSITION, HOB ELEVATED, SIDE RAILS UP X3, AND CALL LIGHT AND TABLE WITHIN REACH. WILL ENDORSE TO THE AUTOMATIC VULCANIZING OPERATOR NURSE FOR SARWAT.
--- NOTE | 2022-04-06 19:20 | NUR ---
RN NOTES RECEIVED REPORT FROM MORNING SHIFT. PATIENT ON TRACH CONNECTED TO T-PIECE AT 5LPM SATING 98% NO SOB NO DISTRESS NOTED AT THIS TIME. WITH GT PATENT NO GASTRIC RESIDUAL NOTED. WITH IV ACCESS AT BRODY ML PATENT FLUSHES WELL WITH ONGOING IVF NS@ 75ML/HR. CONDOM CATH PATENT DRAINING YELLOWISH URINE OUTPUT. WITH BILATERAL SOFT WRIST RESTRAINTS, CIRCULATION CHECK Q 2H.ALL SAFETY MEASURES IN PLACE AT ALL TIMES. HOB ELEVATED. CALL LIGHT WITHIN REACH. WILL CLOSELY MONITOR THE PATIENT
[2022-04-06 20:00] VITALS: BP 149/79
[2022-04-06] MEDS: ATORVASTATIN 40 MG TABLET GT SCH (21:38)
[2022-04-06] MEDS: INSULIN GLARGINE, 100 UNIT/ML CARTRIDGE SQ SCH (21:45)
--- NOTE | 2022-04-06 21:46 | NUR ---
RN NOTES LANTUS 30 UNITS HELD DUE TO BS 99. WILL CONTINUE TO MONITOR
[2022-04-07] VITALS: BP 139/69
[2022-04-07] MEDS: BLOOD SUGAR DIAGNOSTIC 1 EACH STRIP IN SCH ×4 (00:48→17:05)
[2022-04-07] MEDS: INSULIN REGULAR, HUMAN 100 UNIT/ML 3 ML VIAL SQ PRN (00:48)
[2022-04-07] MEDS: ALBUTEROL FS 2.5 MG/3 ML VIAL.NEB NEB SCH ×3 (01:40→13:49)
[2022-04-07] MEDS: IPRATROPIUM NEB FS 0.5 MG/2.5 ML AMPUL.NEB NEB SCH ×3 (01:40→13:49)
[2022-04-07 04:00] VITALS: BP 127/61
[2022-04-07] MEDS: CEFEPIME 2 GM in IV D5W 100 ML IV SCH ×2 (05:22→12:20)
[2022-04-07] MEDS: ONDANSETRON HCL/PF 4 MG/2 ML VIAL IVP PRN (05:57)
--- NOTE | 2022-04-07 07:21 | NUR ---
RN NOTES PATIENT WITH EPISODE OF EMESIS PRN ZOFRAN GIVEN WILL ENDORSED TO MORNING SHIFT FOR SARWAT
[2022-04-07] MEDS: IV NS 0.9% 1,000 ML IV PRN (07:34)
[2022-04-07 08:00] VITALS: BP 149/85
[2022-04-07] MEDS: DOCUSATE SODIUM LIQ 100 MG/10 ML UDC GT SCH (09:07)
[2022-04-07] MEDS: LEVETIRACETAM SOL (5 ML) 100 MG/ML UDC GT SCH (09:07)
[2022-04-07] MEDS: METOPROLOL TARTRATE 50 MG TABLET GT SCH ×2 (09:07→16:44)
[2022-04-07] MEDS: ASPIRIN 81 MG TAB.CHEW GT SCH (09:07)
[2022-04-07] MEDS: QUETIAPINE FUMARATE 25 MG TABLET GT SCH (09:07)
[2022-04-07] MEDS: METOCLOPRAMIDE HCL 10 MG TABLET GT SCH ×3 (09:07→16:44)
[2022-04-07] MEDS: PANTOPRAZOLE 40 MG/PACK PACK NG SCH (09:07)
[2022-04-07 09:09] LABS: POTASSIUM 3.5 mmol/L (3.5-5.1)
[2022-04-07] MEDS: ENOXAPARIN SODIUM 40 MG/0.4 ML DISP.SYRIN SQ SCH (09:12)
[2022-04-07] MEDS: LACOSAMIDE ORAL SOLN 50 MG/5 ML UDC GT SCH (09:12)
[2022-04-07 09:14] LABS: CALCIUM, SERUM 9.5 mg/dL (8.5-10.1)
[2022-04-07] MEDS: VANCOMYCIN 1 GM in IV D5W 250 ML IV SCH (11:12)
[2022-04-07 12:00] VITALS: BP 146/81
--- NOTE | 2022-04-07 15:47 | NUR ---
RN NOTE REPORT GIVEN TO CORY AT [facility].
[2022-04-07 16:00] VITALS: BP 153/81
[2022-04-07 16:44] VITALS: BP 155/81
[2022-04-07] MEDS: LATANOPROST EYE DROP 0.005% 2.5 ML BOTTLE EACHEYE SCH (17:05)
--- NOTE | 2022-04-07 18:31 | NUR ---
RN NOTE PT DISCHARGED PER ORDER. PT PICKED UP BY EMT, VITAL SIGNS STABLE, NO SIGNS OF LABORED BREATHING ON TPIECE 5L O2.
[2022-04-07] MEDS ORDERED: VANCOMYCIN 1.25 GM in IV D5W 250 ML IV SCH (23:00)
== END 2022-04-07 18:31 | DRG 871 ==
LOC: ER 21:34 → TELE1 04-01 01:54 → TELE-TD 04-01 02:42 → TELE1 04-01 17:32
PROVIDERS: ADMIT Nurse Practitioner Acute Care; ATTEND Nurse Practitioner Acute Care
DX: A41.9 Sepsis, unspecified organism (principal); G93.41 Metabolic encephalopathy; I21.A1 Myocardial infarction type 2; J96.21 Acute and chronic respiratory failure with hypoxia; N17.0 Acute kidney failure with tubular necrosis; I50.33 Acute on chronic diastolic (congestive) heart failure; J15.6 Pneumonia due to other Gram-negative bacteria; N39.0 Urinary tract infection, site not specified; I13.0 Hypertensive heart and chronic kidney disease with heart failure and stage 1 through stage 4 chronic kidney disease, or unspecified chronic kidney disease; D68.59 Other primary thrombophilia; E87.20 Acidosis, unspecified; T17.990A Other foreign object in respiratory tract, part unspecified in causing asphyxiation, initial encounter; E86.0 Dehydration; Z20.822 Contact with and (suspected) exposure to COVID-19; Z86.73 Personal history of transient ischemic attack (TIA), and cerebral infarction without residual deficits; H54.8 Legal blindness, as defined in USA; G40.901 Epilepsy, unspecified, not intractable, with status epilepticus; N18.9 Chronic kidney disease, unspecified; E11.22 Type 2 diabetes mellitus with diabetic chronic kidney disease; E11.65 Type 2 diabetes mellitus with hyperglycemia; Z93.0 Tracheostomy status; Z93.1 Gastrostomy status; R13.10 Dysphagia, unspecified; Z86.718 Personal history of other venous thrombosis and embolism; F20.9 Schizophrenia, unspecified; Z79.01 Long term (current) use of anticoagulants; Z79.84 Long term (current) use of oral hypoglycemic drugs; Z79.4 Long term (current) use of insulin; Z79.899 Other long term (current) drug therapy; Z79.51 Long term (current) use of inhaled steroids; Z79.82 Long term (current) use of aspirin; Y95 Nosocomial condition; I25.10 Atherosclerotic heart disease of native coronary artery without angina pectoris; I25.2 Old myocardial infarction; E86.9 Volume depletion, unspecified; Z74.09 Other reduced mobility; X58.XXXA Exposure to other specified factors, initial encounter; Y92.129 Unspecified place in nursing home as the place of occurrence of the external cause; D63.8 Anemia in other chronic diseases classified elsewhere; D50.9 Iron deficiency anemia, unspecified; Z86.69 Personal history of other diseases of the nervous system and sense organs
CPT/HCPCS: 31720; 36415; 36600; 71045-TC; 74018; 80048-TC; 80061-TC; 80076-TC; 80202-TC; 82803-TC; 82962-TC; 83540-TC; 83605-TC; 83735-TC; 83880; 84100-TC; 84484-TC; 85025-TC; 85730-TC; 87040-TC; 87081-TC; 93307-TC; 93970-TC; 94640-TC; 94664-TC; 94760-TC; 94762-TC; 94799-TC; A4349; A6253; A6403; A7526; A9563; C9113; C9803; G0378; J0692; J1644; J1650; J1815; J1953; J2060; J2405; J3370; J3490; J7030; J7050; J7060; J8597

== ENCOUNTER 2023-03-17 23:45 | Inpatient (IN) | payer MEDICARE, OTHER ==
[~2023-03-17] VITALS: Ht 167.6 cm; Wt 71.7 kg
[~2023-03-17 23:45] MED LIST changes: +ALBU2.5V38 IH; -APIX5TAB4 PO; +CRAN425C6 GT; +DEXT38GE12 GT; +FERR300L GT; +GLUC1KIT IM; +IPRA0.2S9 IH; -IPRA4AER IH; +MULT-447 GT; +NUT.237L30 GT; +NUTR1PAC14 GT; +SENN-261 GT; +ZINC1CAP3 GT
[2023-03-18] MEDS ORDERED: ACETAMINOPHEN 650 MG/SUPP.RECT RC ONE ×2 (00:10→00:30)
[2023-03-18] MEDS ORDERED: AZITHROMYCIN 500 MG VIAL ONE (00:10)
[2023-03-18] MEDS ORDERED: PIPERACI/TAZO 3.375GM/D5W 50ML PB IV ONE (00:10)
[2023-03-18] MEDS ORDERED: IV NS 0.9% 1,000 ML BAG IV ONE (00:30)
[2023-03-18] MEDS ORDERED: PIPERACILLIN /TAZOBACTAM 3.375 G in IV D5W 50 ML IV ONE (00:30)
[2023-03-18] MEDS ORDERED: AZITHROMYCIN 500 MG in IV D5W 250 ML IV ONE (00:30)
[2023-03-18] MEDS ORDERED: VANCOMYCIN 1 GM in IV D5W 250 ML IV ONE (00:30)
[2023-03-18 00:40] LABS: BASOPHILS % (AUTO) 0.3 % (0.0-2.0); EOSINOPHILS # (AUTO) 0.3 K/uL (0.0-0.7); EOSINOPHILS % (AUTO) 4.3 % (0.0-6.0); HEMATOCRIT 41 % (39-51); HEMOGLOBIN 12.7 g/dL (13.5-17.5); LYMPHOCYTES # (AUTO) 0.7 K/uL (0.8-4.8); LYMPHOCYTES % (AUTO) 8.7 % (20.0-44.0); MEAN CORPUSCULAR HEMOGLOBIN 28 PG (26.0-33.0); MEAN CORPUSCULAR HGB CONC 31 g/dl (31.0-36.0); MEAN CORPUSCULAR VOLUME 89 fL (80-96); MONOCYTES # (AUTO) 0.2 K/uL (0.1-1.30); MONOCYTES % (AUTO) 2.4 % (2.0-12.0); NEUTROPHILS # (AUTO) 6.8 K/uL (1.8-8.9); NEUTROPHILS % (AUTO) 84.3 % (43.0-81.0); PLATELET COUNT (AUTO) 542 K/uL (150-450); RED BLOOD CELL COUNT(AUTO) 4.62 MIL/uL (4.5-6.0); RED CELL DISTRIBUTION WIDTH 15.8 % (11.5-15.0)
[2023-03-18] MEDS ORDERED: VANCOMYCIN 1 GM /D5W 250 ML PB IV ONE (00:42)
[2023-03-18 00:46] LABS: CALCIUM, SERUM 10.2 mg/dL (8.5-10.1); CARBON DIOXIDE 28 mmol/L (21-32); CHLORIDE 98 mmol/L (98-107); CREATININE 1.9 mg/dL (0.6-1.3); GLUCOSE 215 mg/dL (74-106); POTASSIUM 4.3 mmol/L (3.5-5.1); SODIUM SERUM 139 mmol/L (136-145); UREA NITROGEN, BLOOD 50 mg/dL (7-18)
[2023-03-18 00:48] LABS: INR 1.02 (0.91-1.10); PARTIAL THROMBOPLASTIN TIME 24.7 SEC (24.3-34.3); PROTHROMBIN TIME 10.8 SECS (9.2-11.1)
[2023-03-18 00:52] LABS: ALANINE AMINOTRANSFERASE 18 U/L (12-78); ALBUMIN 3.5 g/dL (3.4-5.0); ALKALINE PHOSPHATASE 98 U/L (46-116); ASPARTATE AMINOTRANSFERASE 17 U/L (15-37); BILIRUBIN,DIRECT 0.1 mg/dL (0.0-0.2); BILIRUBIN,TOTAL 0.3 mg/dL (0.2-1.0); TOTAL PROTEIN, SERUM 8.8 g/dL (6.4-8.2)
[2023-03-18 01:28] LABS: LACTIC ACID 4.7 mmol/L (0.4-2.0)
[2023-03-18 01:30] LABS: APPEARANCE,URINE SLIGHTLY CLOUDY (CLEAR); BILIRUBIN,URINE NEGATIVE (NEGATIVE); BLOOD, URINE NEGATIVE Ery/uL (NEGATIVE); COLOR,URINE YELLOW (YELLOW); KETONES,URINE TRACE mg/dL (NEGATIVE); LEUKOCYTE ESTERASE ,URINE NEGATIVE (NEGATIVE); NITRITE, URINE NEGATIVE (NEGATIVE); PH,URINE 5.5 (5.0-8.0); PROTEIN,URINE 1+ mg/dl (NEGATIVE); UGLUCOSE NEGATIVE (NEGATIVE)
[2023-03-18] MEDS ORDERED: ACETAMINOPHEN 650 MG/SUPP.RECT RC PRN (03:00)
[2023-03-18] MEDS ORDERED: Z GUARD REMEDY 4 OZ OINT TP PRN (03:00)
[2023-03-18] MEDS ORDERED: ONDANSETRON HCL/PF 4 MG/2 ML VIAL IVP PRN (03:00)
[2023-03-18] MEDS ORDERED: HYDROCODONE/APAP 5/325MG TABLET GT PRN (03:00)
[2023-03-18] MEDS ORDERED: DEXTROSE 50%-WATER 50 ML DISP.SYRIN IV PRN (03:00)
[2023-03-18] MEDS ORDERED: TEMAZEPAM 15 MG CAPSULE GT PRN (03:00)
[2023-03-18] MEDS: IV NS 0.9% 1,000 ML IV PRN ×2 (04:28→21:22)
[2023-03-18] MEDS: BLOOD SUGAR DIAGNOSTIC 1 EACH STRIP IN SCH ×4 (06:24→23:50)
[2023-03-18] MEDS ORDERED: MORPHINE SULFATE INJ 4 MG/ML DISP.SYRIN IV PRN (08:30)
[2023-03-18] MEDS ORDERED: HYDR-4075 GT (09:00)
[2023-03-18] MEDS ORDERED: AMIN30LI2 GT (09:00)
[2023-03-18] MEDS ORDERED: SITA100T GT (09:00)
[2023-03-18 10:00] VITALS: BP 117/78; TEMP 98.1; O2SAT 100
[2023-03-18] MEDS: CEFEPIME 1 GM in IV D5W 50 ML IV SCH ×2 (11:02→21:22)
[2023-03-18] MEDS: PANTOPRAZOLE 40 MG VIAL IV SCH (11:05)
[2023-03-18 12:00] VITALS: BP 90/62; TEMP 98.1; O2SAT 100
[2023-03-18 12:57] LABS: CALCIUM, SERUM 9.6 mg/dL (8.5-10.1); CREATININE 2.1 mg/dL (0.6-1.3); POTASSIUM 4.5 mmol/L (3.5-5.1)
[2023-03-18] MEDS: GLUCERNA 1.2 1,000 ML BOTTLE NG PRN (15:40)
[2023-03-18 16:00] VITALS: BP 113/63; TEMP 100.6; O2SAT 100
[2023-03-18] MEDS: ACETAMINOPHEN 650 MG/20.3 ML UDC GT PRN (17:32)
[2023-03-18] MEDS: INSULIN REGULAR, HUMAN 100 UNIT/ML 3 ML VIAL SQ PRN ×2 (18:00→23:51)
[2023-03-18 20:00] VITALS: BP 113/63; TEMP 99; O2SAT 99
[2023-03-18] MEDS: VANCOMYCIN 1 GM in IV D5W 250 ML IV SCH (23:41)
[2023-03-19] VITALS: BP 130/117; TEMP 98.2; O2SAT 99
[2023-03-19 04:00] VITALS: BP 132/63; TEMP 98.1; O2SAT 96
[2023-03-19] MEDS: BLOOD SUGAR DIAGNOSTIC 1 EACH STRIP IN SCH ×4 (06:21→23:14)
[2023-03-19] MEDS: INSULIN REGULAR, HUMAN 100 UNIT/ML 3 ML VIAL SQ PRN (06:22)
[2023-03-19] MEDS: GLUCERNA 1.2 1,000 ML BOTTLE NG PRN (06:25)
[2023-03-19 06:44] LABS: BASOPHILS # (AUTO) 0.1 K/uL (0.0-0.2); BASOPHILS % (AUTO) 0.5 % (0.0-2.0); EOSINOPHILS # (AUTO) 0.9 K/uL (0.0-0.7); EOSINOPHILS % (AUTO) 6.4 % (0.0-6.0); HEMATOCRIT 28 % (39-51); HEMOGLOBIN 8.8 g/dL (13.5-17.5); LYMPHOCYTES # (AUTO) 0.9 K/uL (0.8-4.8); LYMPHOCYTES % (AUTO) 6.5 % (20.0-44.0); MEAN CORPUSCULAR HEMOGLOBIN 28 PG (26.0-33.0); MEAN CORPUSCULAR HGB CONC 31 g/dl (31.0-36.0); MEAN CORPUSCULAR VOLUME 88 fL (80-96); MONOCYTES # (AUTO) 0.8 K/uL (0.1-1.30); MONOCYTES % (AUTO) 5.2 % (2.0-12.0); NEUTROPHILS # (AUTO) 11.8 K/uL (1.8-8.9); NEUTROPHILS % (AUTO) 81.4 % (43.0-81.0); PLATELET COUNT (AUTO) 374 K/uL (150-450); RED BLOOD CELL COUNT(AUTO) 3.22 MIL/uL (4.5-6.0); RED CELL DISTRIBUTION WIDTH 15.9 % (11.5-15.0); WHITE BLOOD COUNT (AUTO) 14.5 K/uL (4.3-11.0)
[2023-03-19 06:51] LABS: CALCIUM, SERUM 9.3 mg/dL (8.5-10.1); CREATININE 1.3 mg/dL (0.6-1.3); MAGNESIUM 2.7 mg/dL (1.8-2.4); PHOSPHORUS 2.6 mg/dL (2.5-4.9); POTASSIUM 3.9 mmol/L (3.5-5.1)
[2023-03-19 08:00] VITALS: BP 144/78; TEMP 99.2; O2SAT 100
[2023-03-19] MEDS: ACETAMINOPHEN 650 MG/20.3 ML UDC GT PRN (08:16)
[2023-03-19] MEDS: PANTOPRAZOLE 40 MG VIAL IV SCH (08:17)
[2023-03-19] MEDS: CEFEPIME 1 GM in IV D5W 50 ML IV SCH ×2 (09:48→21:41)
[2023-03-19 12:00] VITALS: BP 149/83; TEMP 98.8; O2SAT 100
[2023-03-19] MEDS: IV NS 0.9% 1,000 ML IV PRN (12:16)
[2023-03-19 16:00] VITALS: BP 107/74; TEMP 98.9; O2SAT 100
[2023-03-19] MEDS: MUPIROCIN OINT 2% 22 GM TUBE TP SCH (16:22)
[2023-03-19 20:00] VITALS: BP 143/84; TEMP 98.6; O2SAT 99
[2023-03-19] MEDS: VANCOMYCIN 1 GM in IV D5W 250 ML IV SCH (23:22)
[2023-03-20] VITALS: BP 162/85; TEMP 98.9; O2SAT 99
[2023-03-20] MEDS: GLUCERNA 1.2 1,000 ML BOTTLE NG PRN ×2 (03:06→20:05)
[2023-03-20] MEDS: IV NS 0.9% 1,000 ML IV PRN ×2 (03:06→20:06)
[2023-03-20 04:00] VITALS: BP 147/84; TEMP 98.1; O2SAT 100
[2023-03-20] MEDS: BLOOD SUGAR DIAGNOSTIC 1 EACH STRIP IN SCH ×3 (05:43→17:33)
[2023-03-20] MEDS: INSULIN REGULAR, HUMAN 100 UNIT/ML 3 ML VIAL SQ PRN ×3 (05:44→17:34)
[2023-03-20 08:00] VITALS: BP 166/117; TEMP 98.1; O2SAT 100
[2023-03-20 08:06] LABS: CALCIUM, SERUM 9.2 mg/dL (8.5-10.1); POTASSIUM 4.4 mmol/L (3.5-5.1)
[2023-03-20 08:37] LABS: BASOPHILS # (AUTO) 0.1 K/uL (0.0-0.2); BASOPHILS % (AUTO) 0.5 % (0.0-2.0); EOSINOPHILS # (AUTO) 2.1 K/uL (0.0-0.7); EOSINOPHILS % (AUTO) 14.7 % (0.0-6.0); HEMATOCRIT 27 % (39-51); HEMOGLOBIN 8.5 g/dL (13.5-17.5); LYMPHOCYTES % (AUTO) 6.7 % (20.0-44.0); MEAN CORPUSCULAR HEMOGLOBIN 27 PG (26.0-33.0); MEAN CORPUSCULAR HGB CONC 31 g/dl (31.0-36.0); MEAN CORPUSCULAR VOLUME 87 fL (80-96); MONOCYTES # (AUTO) 0.9 K/uL (0.1-1.30); MONOCYTES % (AUTO) 6.1 % (2.0-12.0); NEUTROPHILS # (AUTO) 10.4 K/uL (1.8-8.9); PLATELET COUNT (AUTO) 373 K/uL (150-450); RED BLOOD CELL COUNT(AUTO) 3.14 MIL/uL (4.5-6.0); WHITE BLOOD COUNT (AUTO) 14.4 K/uL (4.3-11.0)
[2023-03-20] MEDS: CEFEPIME 1 GM in IV D5W 50 ML IV SCH (10:15)
[2023-03-20] MEDS: MUPIROCIN OINT 2% 22 GM TUBE TP SCH ×2 (10:16→17:37)
[2023-03-20] MEDS: PANTOPRAZOLE 40 MG/PACK PACK GT SCH (10:16)
[2023-03-20 12:00] VITALS: BP 176/91; TEMP 98.8; O2SAT 100
[2023-03-20] MEDS: VANCOMYCIN HCL 0.75 GM in IV D5W 250 ML IV SCH ×2 (13:37→20:06)
[2023-03-20 16:00] VITALS: BP 165/91; TEMP 99.1; O2SAT 100
[2023-03-20] MEDS: CEFEPIME 2 GM in IV D5W 100 ML IV SCH (17:36)
[2023-03-20 20:00] VITALS: BP 175/71; TEMP 99.1; O2SAT 100
[2023-03-21] VITALS: BP 162/88; TEMP 99.2; O2SAT 100
[2023-03-21] MEDS: BLOOD SUGAR DIAGNOSTIC 1 EACH STRIP IN SCH ×5 (00:52→23:45)
[2023-03-21] MEDS: CEFEPIME 2 GM in IV D5W 100 ML IV SCH ×3 (03:14→17:12)
[2023-03-21 04:00] VITALS: BP 165/86; TEMP 99; O2SAT 100
[2023-03-21] MEDS: VANCOMYCIN HCL 0.75 GM in IV D5W 250 ML IV SCH ×2 (04:00→17:58)
[2023-03-21 04:05] LABS: CALCIUM, SERUM 9.3 mg/dL (8.5-10.1); CREATININE 0.9 mg/dL (0.6-1.3); POTASSIUM 4.3 mmol/L (3.5-5.1)
[2023-03-21] MEDS: INSULIN REGULAR, HUMAN 100 UNIT/ML 3 ML VIAL SQ PRN ×2 (06:13→23:45)
[2023-03-21 08:00] VITALS: BP 145/82; TEMP 98.7; O2SAT 100
[2023-03-21] MEDS: PANTOPRAZOLE 40 MG/PACK PACK GT SCH (08:36)
[2023-03-21] MEDS: MUPIROCIN OINT 2% 22 GM TUBE TP SCH ×2 (08:36→16:34)
[2023-03-21] MEDS: IV NS 0.9% 1,000 ML IV PRN (08:46)
[2023-03-21] MEDS: GLUCERNA 1.2 1,000 ML BOTTLE NG PRN (10:38)
[2023-03-21 12:00] VITALS: BP 140/75; TEMP 98.6; O2SAT 100
[2023-03-21 16:00] VITALS: BP 125/72; TEMP 98.7; O2SAT 100
[2023-03-21 20:00] VITALS: BP_SYST 139; BP_DIAS 74; BP_DIAS 79; TEMP 98.6; O2SAT 100
[2023-03-22] VITALS: BP 143/87; TEMP 98.1; O2SAT 99
[2023-03-22] MEDS: CEFEPIME 2 GM in IV D5W 100 ML IV SCH ×3 (01:28→17:09)
[2023-03-22] MEDS: ACETAMINOPHEN 650 MG/20.3 ML UDC GT PRN (01:28)
[2023-03-22 04:00] VITALS: BP 156/77; TEMP 98.4; O2SAT 98
[2023-03-22] MEDS: BLOOD SUGAR DIAGNOSTIC 1 EACH STRIP IN SCH ×3 (05:48→17:10)
[2023-03-22] MEDS: INSULIN REGULAR, HUMAN 100 UNIT/ML 3 ML VIAL SQ PRN ×2 (05:50→17:10)
[2023-03-22] MEDS: IV NS 0.9% 1,000 ML IV PRN ×2 (06:22→23:33)
[2023-03-22] MEDS: VANCOMYCIN HCL 0.75 GM in IV D5W 250 ML IV SCH ×3 (06:27→18:00)
[2023-03-22 06:58] LABS: CALCIUM, SERUM 9.3 mg/dL (8.5-10.1); CREATININE 0.9 mg/dL (0.6-1.3); POTASSIUM 4.2 mmol/L (3.5-5.1)
[2023-03-22 08:00] VITALS: BP 145/78; TEMP 98.2; O2SAT 100
[2023-03-22] MEDS: MUPIROCIN OINT 2% 22 GM TUBE TP SCH ×2 (09:10→16:56)
[2023-03-22] MEDS: PANTOPRAZOLE 40 MG/PACK PACK GT SCH (09:11)
[2023-03-22] MEDS: GLUCERNA 1.2 1,000 ML BOTTLE NG PRN (09:14)
[2023-03-22 12:00] VITALS: BP 132/77; TEMP 98.4; O2SAT 100
[2023-03-22 16:00] VITALS: BP 127/77; TEMP 98.8; O2SAT 100
[2023-03-22 20:00] VITALS: BP 133/90; TEMP 97.5; O2SAT 99
[2023-03-23] VITALS: BP 124/55; TEMP 98.1; O2SAT 100
[2023-03-23] MEDS: INSULIN REGULAR, HUMAN 100 UNIT/ML 3 ML VIAL SQ PRN ×3 (00:24→11:58)
[2023-03-23] MEDS: BLOOD SUGAR DIAGNOSTIC 1 EACH STRIP IN SCH ×4 (00:43→17:15)
[2023-03-23] MEDS: CEFEPIME 2 GM in IV D5W 100 ML IV SCH ×3 (01:16→17:16)
[2023-03-23 04:00] VITALS: BP 105/60; TEMP 98.8; O2SAT 99
[2023-03-23] MEDS: GLUCERNA 1.2 1,000 ML BOTTLE NG PRN ×2 (06:07→22:12)
[2023-03-23 07:08] LABS: CALCIUM, SERUM 9.5 mg/dL (8.5-10.1); POTASSIUM 4.4 mmol/L (3.5-5.1)
[2023-03-23 08:00] VITALS: BP 106/69; TEMP 97.1; O2SAT 100
[2023-03-23] MEDS: VANCOMYCIN HCL 0.75 GM in IV D5W 250 ML IV SCH ×3 (08:30→17:44)
[2023-03-23] MEDS: PANTOPRAZOLE 40 MG/PACK PACK GT SCH (08:31)
[2023-03-23] MEDS: MUPIROCIN OINT 2% 22 GM TUBE TP SCH ×2 (08:34→17:16)
[2023-03-23 12:00] VITALS: BP 100/78; TEMP 97.8; O2SAT 99
[2023-03-23 14:04] LABS: BASOPHILS # (AUTO) 0.1 K/uL (0.0-0.2); BASOPHILS % (AUTO) 0.4 % (0.0-2.0); HEMATOCRIT 31 % (39-51); HEMOGLOBIN 9.4 g/dL (13.5-17.5); LYMPHOCYTES # (AUTO) 1.5 K/uL (0.8-4.8); LYMPHOCYTES % (AUTO) 12.1 % (20.0-44.0); MEAN CORPUSCULAR HEMOGLOBIN 27 PG (26.0-33.0); MEAN CORPUSCULAR HGB CONC 31 g/dl (31.0-36.0); MEAN CORPUSCULAR VOLUME 86 fL (80-96); MONOCYTES # (AUTO) 1.1 K/uL (0.1-1.30); MONOCYTES % (AUTO) 8.4 % (2.0-12.0); NEUTROPHILS % (AUTO) 63.1 % (43.0-81.0); PLATELET COUNT (AUTO) 486 K/uL (150-450); RED BLOOD CELL COUNT(AUTO) 3.56 MIL/uL (4.5-6.0); WHITE BLOOD COUNT (AUTO) 12.6 K/uL (4.3-11.0)
[2023-03-23 16:00] VITALS: BP 100/76; TEMP 97.7; O2SAT 99
[2023-03-23 16:01] LABS: EOSINOPHILS % (MANUAL) 11 % (0-4); LYMPHOCYTES % (MANUAL) 13 % (16-48); MONOCYTES % (MANUAL) 6 % (0-11.0); NEUTROPHILS % (MANUAL) 70 (42-76); PLATELET ESTIMATE INCREASED
[2023-03-23 16:02] LABS: ANISOCYTOSIS 1+
[2023-03-23] MEDS: IV NS 0.9% 1,000 ML IV PRN (19:33)
[2023-03-23 20:00] VITALS: BP 119/52; TEMP 97.7; O2SAT 99
[2023-03-24] VITALS: BP 118/51; TEMP 98.8; O2SAT 98
[2023-03-24] MEDS: BLOOD SUGAR DIAGNOSTIC 1 EACH STRIP IN SCH ×2 (00:11→06:05)
[2023-03-24 02:00] VITALS: BP 125/65; TEMP 98.6; O2SAT 100
[2023-03-24] MEDS: CEFEPIME 2 GM in IV D5W 100 ML IV SCH ×2 (02:06→09:26)
[2023-03-24 04:00] VITALS: BP_SYST 113; BP_SYST 125; BP_DIAS 61; BP_DIAS 65; TEMP 98.6; O2SAT 100
[2023-03-24 07:00] VITALS: BP 106/58; TEMP 99; O2SAT 100
[2023-03-24] MEDS: INSULIN REGULAR, HUMAN 100 UNIT/ML 3 ML VIAL SQ PRN (07:17)
[2023-03-24 07:46] LABS: CALCIUM, SERUM 9.4 mg/dL (8.5-10.1); CREATININE 1.1 mg/dL (0.6-1.3)
[2023-03-24] MEDS: MUPIROCIN OINT 2% 22 GM TUBE TP SCH (09:22)
[2023-03-24] MEDS: PANTOPRAZOLE 40 MG/PACK PACK GT SCH (09:22)
[2023-03-24] MEDS ORDERED: VANCOMYCIN 1 GM in IV D5W 250 ML IV SCH (20:00)
== END 2023-03-24 11:50 | DRG 870 ==
LOC: ER 23:47 → TELE1 03-18 08:33 → TELE 03-24 01:32
PROVIDERS: ATTEND Internal Medicine
PROC: 5A1955Z Respiratory Ventilation, Greater than 96 Consecutive Hours (ICD-10-PCS; principal; 2023-03-18)
PROC: 05HC33Z Insertion of Infusion Device into Left Basilic Vein, Percutaneous Approach (ICD-10-PCS; 2023-03-21)
DX: A41.9 Sepsis, unspecified organism (principal); G93.41 Metabolic encephalopathy; J95.851 Ventilator associated pneumonia; J96.11 Chronic respiratory failure with hypoxia; I13.0 Hypertensive heart and chronic kidney disease with heart failure and stage 1 through stage 4 chronic kidney disease, or unspecified chronic kidney disease; Z99.11 Dependence on respirator [ventilator] status; N17.9 Acute kidney failure, unspecified; R65.20 Severe sepsis without septic shock; E11.22 Type 2 diabetes mellitus with diabetic chronic kidney disease; N18.9 Chronic kidney disease, unspecified; Y84.8 Other medical procedures as the cause of abnormal reaction of the patient, or of later complication, without mention of misadventure at the time of the procedure; Y92.129 Unspecified place in nursing home as the place of occurrence of the external cause; Z20.822 Contact with and (suspected) exposure to COVID-19; Z86.73 Personal history of transient ischemic attack (TIA), and cerebral infarction without residual deficits; Z93.0 Tracheostomy status; Z93.1 Gastrostomy status; R13.10 Dysphagia, unspecified; E78.5 Hyperlipidemia, unspecified; K21.9 Gastro-esophageal reflux disease without esophagitis; E11.65 Type 2 diabetes mellitus with hyperglycemia; F20.9 Schizophrenia, unspecified; I25.10 Atherosclerotic heart disease of native coronary artery without angina pectoris; I25.2 Old myocardial infarction; M62.40 Contracture of muscle, unspecified site; Z79.51 Long term (current) use of inhaled steroids; Z79.899 Other long term (current) drug therapy; I50.9 Heart failure, unspecified; Z79.4 Long term (current) use of insulin; Z79.84 Long term (current) use of oral hypoglycemic drugs; Z79.82 Long term (current) use of aspirin; G40.909 Epilepsy, unspecified, not intractable, without status epilepticus; Z86.718 Personal history of other venous thrombosis and embolism; Z86.74 Personal history of sudden cardiac arrest; D64.9 Anemia, unspecified; E86.9 Volume depletion, unspecified; H54.8 Legal blindness, as defined in USA
CPT/HCPCS: 31720; 36410; 36415; 71045-TC; 71250-TC; 80048-TC; 80076-TC; 80202-TC; 82962-TC; 83605-TC; 83735-TC; 84100-TC; 84484-TC; 85025-TC; 85730-TC; 87040-TC; 87081-TC; 87086-TC; 93970-TC; 94002-TC; 94003-TC; 94760-TC; 94799-TC; A4223; A4623; A7526; C9113; C9803; G0378; J0456; J0692; J1815; J2405; J2543; J3370; J7030; J7060

== ENCOUNTER 2023-07-24 18:01 | Inpatient (IN) | payer MEDICARE, BC ==
[~2023-07-24] VITALS: Ht 167.6 cm; Wt 66.7 kg
[~2023-07-24 18:01] MED LIST changes: +AMIN30LI2 GT; -ATOR40TA GT; -CRAN3875 GT; -DEXT38GE12 GT; -HEPA50007 SQ; +HYDR-4075 GT; -INSU100V11 SQ; -LINA5TAB GT; -NUTR1PAC14 GT; -SENN-261 GT; +SITA100T GT; -ZINC1CAP3 GT
[2023-07-24] MEDS ORDERED: FERR220E2 GT (18:48)
[2023-07-24] MEDS ORDERED: PANT40SU2 GT (18:48)
[2023-07-24] MEDS ORDERED: LEVE100S GT (18:48)
[2023-07-24] MEDS ORDERED: POVI3780 TP (18:48)
[2023-07-24] MEDS ORDERED: PETR113O TP (18:48)
[2023-07-24] MEDS ORDERED: HYDR59LO13 TP (18:48)
[2023-07-24] MEDS ORDERED: AMIN30LI66 GT (18:48)
[2023-07-24] MEDS ORDERED: ZINC57OI4 TP (18:48)
[2023-07-24] MEDS ORDERED: KETO15CR2 TP (18:48)
[2023-07-24] MEDS ORDERED: DEXTROSE IV (18:48)
[2023-07-24] MEDS ORDERED: BLOO-668 IN (18:48)
[2023-07-24 19:30] LABS: BASOPHILS # (AUTO) 0.1 K/uL (0.0-0.2); HEMOGLOBIN 8.4 g/dL (13.5-17.5); MEAN CORPUSCULAR HGB CONC 30 g/dl (31.0-36.0); NEUTROPHILS # (AUTO) 13.2 K/uL (1.8-8.9); PLATELET COUNT (AUTO) 666 K/uL (150-450); RED CELL DISTRIBUTION WIDTH 17.3 % (11.5-15.0)
[2023-07-24 19:32] LABS: BASOPHILS % (AUTO) 0.5 % (0.0-2.0); EOSINOPHILS # (AUTO) 1.4 K/uL (0.0-0.7); EOSINOPHILS % (AUTO) 8.2 % (0.0-6.0); HEMATOCRIT 28 % (39-51); LYMPHOCYTES # (AUTO) 1.5 K/uL (0.8-4.8); LYMPHOCYTES % (AUTO) 8.5 % (20.0-44.0); MEAN CORPUSCULAR HEMOGLOBIN 25 PG (26.0-33.0); MEAN CORPUSCULAR VOLUME 83 fL (80-96); MONOCYTES # (AUTO) 1.1 K/uL (0.1-1.30); MONOCYTES % (AUTO) 6.1 % (2.0-12.0); NEUTROPHILS % (AUTO) 76.7 % (43.0-81.0); RED BLOOD CELL COUNT(AUTO) 3.34 MIL/uL (4.5-6.0); WHITE BLOOD COUNT (AUTO) 17.2 K/uL (4.3-11.0)
[2023-07-24 19:35] LABS: CALCIUM, SERUM 9.3 mg/dL (8.5-10.1); CREATININE 1.1 mg/dL (0.6-1.3)
[2023-07-24 19:45] LABS: LACTIC ACID 1.7 mmol/L (0.4-2.0)
[2023-07-24 19:46] LABS: INR 1.04 (0.91-1.10); PARTIAL THROMBOPLASTIN TIME 31.2 SEC (24.3-34.3); PROTHROMBIN TIME 10.7 SECS (9.2-11.1)
[2023-07-24 21:50] VITALS: BP 121/70; TEMP 99.3; O2SAT 100
[2023-07-25] VITALS (12 sets, daily range): BP systolic 113–147; BP diastolic 68–87; TEMP 98.4–99.5; O2SAT 100
[2023-07-25] MEDS ORDERED: VANCOMYCIN 1 GM /D5W 250 ML PB IV ONE (01:04)
[2023-07-25] MEDS ORDERED: PIPERACI/TAZO 3.375GM/D5W 50ML PB IV ONE (01:04)
[2023-07-25] MEDS: VANCOMYCIN 1 GM in IV D5W 250 ML IV ONE (01:05)
[2023-07-25] MEDS: PIPERACILLIN /TAZOBACTAM 3.375 G in IV D5W 50 ML IV ONE (01:05)
[2023-07-25] MEDS: GLUCERNA 1.2 1,000 ML BOTTLE GT PRN (03:49)
[2023-07-25 07:54] LABS: BASOPHILS # (AUTO) 0.1 K/uL (0.0-0.2); BASOPHILS % (AUTO) 0.5 % (0.0-2.0); EOSINOPHILS % (AUTO) 6.4 % (0.0-6.0); HEMATOCRIT 28 % (39-51); HEMOGLOBIN 8.7 g/dL (13.5-17.5); LYMPHOCYTES # (AUTO) 0.7 K/uL (0.8-4.8); LYMPHOCYTES % (AUTO) 4.7 % (20.0-44.0); MEAN CORPUSCULAR HEMOGLOBIN 26 PG (26.0-33.0); MEAN CORPUSCULAR HGB CONC 31 g/dl (31.0-36.0); MEAN CORPUSCULAR VOLUME 82 fL (80-96); MONOCYTES # (AUTO) 0.8 K/uL (0.1-1.30); MONOCYTES % (AUTO) 5.2 % (2.0-12.0); NEUTROPHILS # (AUTO) 13.1 K/uL (1.8-8.9); NEUTROPHILS % (AUTO) 83.2 % (43.0-81.0); PLATELET COUNT (AUTO) 692 K/uL (150-450); RED CELL DISTRIBUTION WIDTH 17.4 % (11.5-15.0); WHITE BLOOD COUNT (AUTO) 15.7 K/uL (4.3-11.0)
[2023-07-25 08:06] LABS: CALCIUM, SERUM 9.3 mg/dL (8.5-10.1); CREATININE 1.2 mg/dL (0.6-1.3); POTASSIUM 3.6 mmol/L (3.5-5.1)
[2023-07-25] MEDS ORDERED: hydrALAZINE HCL 10 MG TABLET GT PRN (12:00)
[2023-07-25] MEDS ORDERED: METOCLOPRAMIDE HCL 10 MG TABLET GT PRN (12:00)
[2023-07-25] MEDS ORDERED: MAGNESIUM HYDROXIDE 30 ML UDC GT PRN (12:00)
[2023-07-25] MEDS: BLOOD SUGAR DIAGNOSTIC 1 EACH STRIP IN SCH (12:00)
[2023-07-25] MEDS ORDERED: Medication Not On Formulary EA (Cranberry Extract (Cranberry) 425 MG) GT SCH (13:00)
[2023-07-25] MEDS ORDERED: ONDANSETRON 4 MG TAB.RAPDIS GT PRN (13:00)
[2023-07-25] MEDS ORDERED: GLUCAGON,HUMAN RECOMBINANT 1 MG/VIAL VIAL IM PRN (13:30)
[2023-07-25] MEDS ORDERED: DEXTROSE 50%-WATER 50 ML DISP.SYRIN IV PRN (13:30)
[2023-07-25] MEDS: VANCOMYCIN 1 GM in IV D5W 250ml IV SCH (13:45)
[2023-07-25] MEDS: ASPIRIN 81 MG TAB.CHEW GT SCH (13:46)
[2023-07-25] MEDS: LEVETIRACETAM SOL (5 ML) 100 MG/ML UDC GT SCH (13:46)
[2023-07-25] MEDS ORDERED: ACETAMINOPHEN 325 MG TABLET MC SCH (17:00)
[2023-07-25] MEDS ORDERED: Medication Not On Formulary EA (Amino AC/Protein Hydr/Whey Pro (Liquacel Liquid Protein GT SCH (17:00)
[2023-07-25] MEDS: DOCUSATE SODIUM LIQ 100 MG/10 ML UDC GT SCH (17:11)
[2023-07-25] MEDS: FERROUS SULFATE UDC 300 MG/5 ML UDC GT SCH (17:11)
[2023-07-25] MEDS: METFORMIN 500 MG TABLET GT SCH (17:13)
[2023-07-25] MEDS: METOPROLOL TARTRATE 50 MG TABLET GT SCH (17:13)
[2023-07-25] MEDS: LACOSAMIDE ORAL SOLN 50 MG/5 ML UDC GT SCH (17:22)
[2023-07-25] MEDS ORDERED: CEFEPIME 1 GM in IV D5W 50 ML IV SCH (20:30)
[2023-07-25] MEDS: CHLORHEXIDINE GLUCONATE 15 ML UDC MM SCH (20:43)
[2023-07-25] MEDS: CEFEPIME 2 GM in IV D5W 100 ML IV SCH (20:52)
[2023-07-25] MEDS: LATANOPROST EYE DROP 0.005% 2.5 ML BOTTLE EACHEYE SCH (21:07)
[2023-07-25] MEDS: INSULIN GLARGINE, 100 UNIT/ML CARTRIDGE SQ SCH (21:16)
[2023-07-26] VITALS (10 sets, daily range): BP systolic 120–134; BP diastolic 64–73; TEMP 97.7–99.1; O2SAT 99–100
[2023-07-26 07:07] LABS: BASOPHILS # (AUTO) 0.1 K/uL (0.0-0.2); BASOPHILS % (AUTO) 0.4 % (0.0-2.0); EOSINOPHILS # (AUTO) 1.8 K/uL (0.0-0.7); EOSINOPHILS % (AUTO) 9.9 % (0.0-6.0); HEMATOCRIT 25 % (39-51); LYMPHOCYTES # (AUTO) 1.3 K/uL (0.8-4.8); LYMPHOCYTES % (AUTO) 6.9 % (20.0-44.0); MEAN CORPUSCULAR HEMOGLOBIN 26 PG (26.0-33.0); MEAN CORPUSCULAR HGB CONC 32 g/dl (31.0-36.0); MEAN CORPUSCULAR VOLUME 82 fL (80-96); MONOCYTES # (AUTO) 1.2 K/uL (0.1-1.30); MONOCYTES % (AUTO) 6.7 % (2.0-12.0); NEUTROPHILS % (AUTO) 76.1 % (43.0-81.0); PLATELET COUNT (AUTO) 719 K/uL (150-450); RED BLOOD CELL COUNT(AUTO) 3.05 MIL/uL (4.5-6.0); RED CELL DISTRIBUTION WIDTH 17.2 % (11.5-15.0); WHITE BLOOD COUNT (AUTO) 18.4 K/uL (4.3-11.0)
[2023-07-26 07:22] LABS: CREATININE 1.2 mg/dL (0.6-1.3); MAGNESIUM 2.9 mg/dL (1.8-2.4); PHOSPHORUS 4.2 mg/dL (2.5-4.9); POTASSIUM 4.2 mmol/L (3.5-5.1)
[2023-07-26] MEDS: MULTIVIT W/MINERALS 1 TAB TABLET GT SCH (09:09)
[2023-07-26] MEDS: PANTOPRAZOLE 40 MG/PACK PACK GT SCH (09:10)
[2023-07-26] MEDS: LINAGLIPTIN 5 MG TABLET GT SCH (09:16)
[2023-07-26] MEDS: APIXABAN 2.5 MG TABLET PO SCH (17:09)
[2023-07-26] MEDS: IPRATROPIUM NEB FS 0.5 MG/2.5 ML AMPUL.NEB IH PRN (21:37)
[2023-07-26] MEDS: ALBUTEROL FS 2.5 MG/3 ML VIAL.NEB IH PRN (21:37)
[2023-07-27] VITALS (9 sets, daily range): BP systolic 100–141; BP diastolic 53–114; TEMP 97.1–99; O2SAT 99–100
[2023-07-27] MEDS: VANCOMYCIN 1 GM in IV D5W 250ml IV SCH (00:32)
[2023-07-27] MEDS: ACETAMINOPHEN 650 MG/20.3 ML UDC GT PRN (01:42)
[2023-07-27] MEDS: GLUCERNA 1.2 1,000 ML BOTTLE GT SCH (21:47)
[2023-07-28] VITALS (9 sets, daily range): BP systolic 104–148; BP diastolic 72–88; TEMP 97.5–98.4; O2SAT 100
[2023-07-28 07:55] LABS: CALCIUM, SERUM 10.1 mg/dL (8.5-10.1); CREATININE 1.2 mg/dL (0.6-1.3); POTASSIUM 4.7 mmol/L (3.5-5.1)
[2023-07-29] VITALS (10 sets, daily range): BP systolic 105–139; BP diastolic 58–95; TEMP 97.5–99; O2SAT 97–100
[2023-07-29 07:01] LABS: CALCIUM, SERUM 9.8 mg/dL (8.5-10.1); POTASSIUM 4.4 mmol/L (3.5-5.1)
[2023-07-29] MEDS: MUPIROCIN OINT 2% 22 GM TUBE TP SCH (08:19)
[2023-07-30] VITALS (8 sets, daily range): BP systolic 114–136; BP diastolic 69–85; TEMP 97.5–99; O2SAT 100
[2023-07-30 07:20] LABS: BASOPHILS % (AUTO) 0.2 % (0.0-2.0); EOSINOPHILS # (AUTO) 1.8 K/uL (0.0-0.7); EOSINOPHILS % (AUTO) 10.8 % (0.0-6.0); HEMATOCRIT 25 % (39-51); LYMPHOCYTES # (AUTO) 1.7 K/uL (0.8-4.8); LYMPHOCYTES % (AUTO) 9.8 % (20.0-44.0); MEAN CORPUSCULAR HEMOGLOBIN 27 PG (26.0-33.0); MEAN CORPUSCULAR HGB CONC 32 g/dl (31.0-36.0); MEAN CORPUSCULAR VOLUME 82 fL (80-96); MONOCYTES % (AUTO) 6.2 % (2.0-12.0); NEUTROPHILS # (AUTO) 12.3 K/uL (1.8-8.9); PLATELET COUNT (AUTO) 806 K/uL (150-450); RED BLOOD CELL COUNT(AUTO) 3.03 MIL/uL (4.5-6.0); WHITE BLOOD COUNT (AUTO) 16.9 K/uL (4.3-11.0)
[2023-07-30 08:25] LABS: CALCIUM, SERUM 9.6 mg/dL (8.5-10.1); CREATININE 1.2 mg/dL (0.6-1.3); MAGNESIUM 2.5 mg/dL (1.8-2.4); PHOSPHORUS 3.2 mg/dL (2.5-4.9); POTASSIUM 4.9 mmol/L (3.5-5.1)
[2023-07-30] MEDS: LORAZEPAM INJ 2 MG/ML VIAL IV ONE (10:22)
[2023-07-30] MEDS ORDERED: CT SWABBABLE VALVE TRANS SET 1 EA INFUS.SET MC ONE (10:57)
[2023-07-30] MEDS ORDERED: IV NS 0.9% 250 ML IV ONE (10:57)
[2023-07-30] MEDS ORDERED: IOHEXOL-350 100 ML VIAL IV ONE (10:57)
[2023-07-31] VITALS (12 sets, daily range): BP systolic 107–149; BP diastolic 44–78; TEMP 97.9–99.3; O2SAT 96–100
[2023-07-31 06:51] LABS: BASOPHILS # (AUTO) 0.1 K/uL (0.0-0.2); BASOPHILS % (AUTO) 0.4 % (0.0-2.0); EOSINOPHILS # (AUTO) 1.6 K/uL (0.0-0.7); EOSINOPHILS % (AUTO) 12.1 % (0.0-6.0); HEMATOCRIT 26 % (39-51); HEMOGLOBIN 8.2 g/dL (13.5-17.5); LYMPHOCYTES # (AUTO) 1.2 K/uL (0.8-4.8); LYMPHOCYTES % (AUTO) 9.2 % (20.0-44.0); MEAN CORPUSCULAR HEMOGLOBIN 26 PG (26.0-33.0); MEAN CORPUSCULAR HGB CONC 31 g/dl (31.0-36.0); MEAN CORPUSCULAR VOLUME 82 fL (80-96); MONOCYTES # (AUTO) 0.7 K/uL (0.1-1.30); MONOCYTES % (AUTO) 5.1 % (2.0-12.0); NEUTROPHILS # (AUTO) 9.7 K/uL (1.8-8.9); NEUTROPHILS % (AUTO) 73.2 % (43.0-81.0); PLATELET COUNT (AUTO) 771 K/uL (150-450); RED BLOOD CELL COUNT(AUTO) 3.17 MIL/uL (4.5-6.0); RED CELL DISTRIBUTION WIDTH 17.6 % (11.5-15.0); WHITE BLOOD COUNT (AUTO) 13.3 K/uL (4.3-11.0)
[2023-07-31 07:27] LABS: CALCIUM, SERUM 9.4 mg/dL (8.5-10.1); CREATININE 1.3 mg/dL (0.6-1.3); MAGNESIUM 2.5 mg/dL (1.8-2.4); PHOSPHORUS 2.7 mg/dL (2.5-4.9); POTASSIUM 4.5 mmol/L (3.5-5.1)
[2023-07-31] MEDS: IV NS 0.9% 1,000 ML IV PRN (08:50)
[2023-07-31] MEDS: VITAMINS A AND D 56.7 GM TUBE TP SCH (11:40)
[2023-07-31] MEDS: ONDANSETRON HCL/PF 4 MG/2 ML VIAL IV PRN (18:34)
[2023-07-31] MEDS: METOCLOPRAMIDE HCL 10 MG/2 ML VIAL IV PRN (18:35)
[2023-08-01] VITALS (12 sets, daily range): BP systolic 115–135; BP diastolic 59–85; TEMP 97.7–98.4; O2SAT 100
[2023-08-01 06:55] LABS: BASOPHILS # (AUTO) 0.1 K/uL (0.0-0.2); BASOPHILS % (AUTO) 0.5 % (0.0-2.0); EOSINOPHILS # (AUTO) 1.9 K/uL (0.0-0.7); EOSINOPHILS % (AUTO) 11.8 % (0.0-6.0); HEMATOCRIT 23 % (39-51); HEMOGLOBIN 7.3 g/dL (13.5-17.5); LYMPHOCYTES # (AUTO) 1.3 K/uL (0.8-4.8); LYMPHOCYTES % (AUTO) 7.9 % (20.0-44.0); MEAN CORPUSCULAR HEMOGLOBIN 26 PG (26.0-33.0); MEAN CORPUSCULAR HGB CONC 31 g/dl (31.0-36.0); MEAN CORPUSCULAR VOLUME 83 fL (80-96); MONOCYTES # (AUTO) 0.7 K/uL (0.1-1.30); MONOCYTES % (AUTO) 4.5 % (2.0-12.0); NEUTROPHILS % (AUTO) 75.3 % (43.0-81.0); PLATELET COUNT (AUTO) 789 K/uL (150-450); RED BLOOD CELL COUNT(AUTO) 2.83 MIL/uL (4.5-6.0); RED CELL DISTRIBUTION WIDTH 17.8 % (11.5-15.0); WHITE BLOOD COUNT (AUTO) 15.9 K/uL (4.3-11.0)
[2023-08-01 07:35] LABS: CALCIUM, SERUM 9.3 mg/dL (8.5-10.1); CREATININE 1.3 mg/dL (0.6-1.3); MAGNESIUM 2.4 mg/dL (1.8-2.4); PHOSPHORUS 3.3 mg/dL (2.5-4.9); POTASSIUM 4.1 mmol/L (3.5-5.1)
[2023-08-02] VITALS (11 sets, daily range): BP systolic 90–150; BP diastolic 59–86; TEMP 97.3–98.9; O2SAT 100
[2023-08-02 07:01] LABS: BASOPHILS # (AUTO) 0.1 K/uL (0.0-0.2); BASOPHILS % (AUTO) 0.4 % (0.0-2.0); EOSINOPHILS # (AUTO) 1.8 K/uL (0.0-0.7); EOSINOPHILS % (AUTO) 11.6 % (0.0-6.0); HEMATOCRIT 25 % (39-51); LYMPHOCYTES # (AUTO) 1.6 K/uL (0.8-4.8); LYMPHOCYTES % (AUTO) 10.2 % (20.0-44.0); MEAN CORPUSCULAR HEMOGLOBIN 26 PG (26.0-33.0); MEAN CORPUSCULAR HGB CONC 32 g/dl (31.0-36.0); MEAN CORPUSCULAR VOLUME 83 fL (80-96); MONOCYTES # (AUTO) 0.7 K/uL (0.1-1.30); MONOCYTES % (AUTO) 4.8 % (2.0-12.0); NEUTROPHILS # (AUTO) 11.2 K/uL (1.8-8.9); PLATELET COUNT (AUTO) 771 K/uL (150-450); RED BLOOD CELL COUNT(AUTO) 3.05 MIL/uL (4.5-6.0); RED CELL DISTRIBUTION WIDTH 17.8 % (11.5-15.0); WHITE BLOOD COUNT (AUTO) 15.3 K/uL (4.3-11.0)
[2023-08-02 07:46] LABS: CALCIUM, SERUM 9.2 mg/dL (8.5-10.1); CREATININE 1.2 mg/dL (0.6-1.3); MAGNESIUM 2.2 mg/dL (1.8-2.4); POTASSIUM 4.4 mmol/L (3.5-5.1)
[2023-08-02 14:23] LABS: BASOPHILS % (AUTO) 0.3 % (0.0-2.0); EOSINOPHILS # (AUTO) 1.6 K/uL (0.0-0.7); EOSINOPHILS % (AUTO) 12.6 % (0.0-6.0); HEMATOCRIT 26 % (39-51); LYMPHOCYTES % (AUTO) 8.2 % (20.0-44.0); MEAN CORPUSCULAR HEMOGLOBIN 26 PG (26.0-33.0); MEAN CORPUSCULAR HGB CONC 31 g/dl (31.0-36.0); MEAN CORPUSCULAR VOLUME 83 fL (80-96); MONOCYTES # (AUTO) 0.6 K/uL (0.1-1.30); MONOCYTES % (AUTO) 4.7 % (2.0-12.0); NEUTROPHILS # (AUTO) 9.5 K/uL (1.8-8.9); NEUTROPHILS % (AUTO) 74.2 % (43.0-81.0); PLATELET COUNT (AUTO) 788 K/uL (150-450); RED BLOOD CELL COUNT(AUTO) 3.12 MIL/uL (4.5-6.0); RED CELL DISTRIBUTION WIDTH 17.5 % (11.5-15.0); WHITE BLOOD COUNT (AUTO) 12.8 K/uL (4.3-11.0)
[2023-08-02 14:52] LABS: FERRITIN 644 ng/mL (8-388)
[2023-08-02 15:15] LABS: IRON, SERUM 20 ug/dl (50-175); TOTAL IRON BINDING CAPACITY 142 ug/dl (250-450)
[2023-08-02 19:03] LABS: ANISOCYTOSIS 1+; EOSINOPHILS % (MANUAL) 15 % (0-4); LYMPHOCYTES % (MANUAL) 7 % (16-48); MONOCYTES % (MANUAL) 4 % (0-11.0); NEUTROPHILS % (MANUAL) 74 (42-76); PLATELET ESTIMATE INCREASED
[2023-08-02 19:04] LABS: ROULEAUX 1+
[2023-08-03] VITALS (9 sets, daily range): BP systolic 92–153; BP diastolic 65–79; TEMP 97.5–98.8; O2SAT 94–100
[2023-08-03 06:12] LABS: BASOPHILS # (AUTO) 0.1 K/uL (0.0-0.2); BASOPHILS % (AUTO) 0.5 % (0.0-2.0); EOSINOPHILS # (AUTO) 1.5 K/uL (0.0-0.7); HEMATOCRIT 24 % (39-51); HEMOGLOBIN 7.4 g/dL (13.5-17.5); LYMPHOCYTES # (AUTO) 1.3 K/uL (0.8-4.8); MEAN CORPUSCULAR HEMOGLOBIN 26 PG (26.0-33.0); MEAN CORPUSCULAR HGB CONC 31 g/dl (31.0-36.0); MEAN CORPUSCULAR VOLUME 84 fL (80-96); MONOCYTES # (AUTO) 0.8 K/uL (0.1-1.30); MONOCYTES % (AUTO) 6.6 % (2.0-12.0); NEUTROPHILS # (AUTO) 8.1 K/uL (1.8-8.9); NEUTROPHILS % (AUTO) 68.9 % (43.0-81.0); PLATELET COUNT (AUTO) 732 K/uL (150-450); RED BLOOD CELL COUNT(AUTO) 2.86 MIL/uL (4.5-6.0); RED CELL DISTRIBUTION WIDTH 17.7 % (11.5-15.0); WHITE BLOOD COUNT (AUTO) 11.7 K/uL (4.3-11.0)
[2023-08-03 06:22] LABS: CALCIUM, SERUM 8.8 mg/dL (8.5-10.1); CREATININE 1.2 mg/dL (0.6-1.3); PHOSPHORUS 3.2 mg/dL (2.5-4.9); POTASSIUM 4.2 mmol/L (3.5-5.1)
[2023-08-04] VITALS (9 sets, daily range): BP systolic 133–148; BP diastolic 65–90; TEMP 96–98.9; O2SAT 96–100
[2023-08-04 07:37] LABS: BASOPHILS # (AUTO) 0.1 K/uL (0.0-0.2); BASOPHILS % (AUTO) 0.4 % (0.0-2.0); EOSINOPHILS # (AUTO) 1.7 K/uL (0.0-0.7); EOSINOPHILS % (AUTO) 13.9 % (0.0-6.0); HEMATOCRIT 25 % (39-51); HEMOGLOBIN 7.9 g/dL (13.5-17.5); LYMPHOCYTES # (AUTO) 1.4 K/uL (0.8-4.8); MEAN CORPUSCULAR HEMOGLOBIN 27 PG (26.0-33.0); MEAN CORPUSCULAR HGB CONC 31 g/dl (31.0-36.0); MEAN CORPUSCULAR VOLUME 85 fL (80-96); MONOCYTES # (AUTO) 0.8 K/uL (0.1-1.30); MONOCYTES % (AUTO) 6.5 % (2.0-12.0); NEUTROPHILS % (AUTO) 67.2 % (43.0-81.0); PLATELET COUNT (AUTO) 741 K/uL (150-450); RED BLOOD CELL COUNT(AUTO) 2.98 MIL/uL (4.5-6.0); RED CELL DISTRIBUTION WIDTH 17.7 % (11.5-15.0); WHITE BLOOD COUNT (AUTO) 11.9 K/uL (4.3-11.0)
[2023-08-04 08:11] LABS: CALCIUM, SERUM 9.3 mg/dL (8.5-10.1); CREATININE 1.1 mg/dL (0.6-1.3); MAGNESIUM 2.1 mg/dL (1.8-2.4); PHOSPHORUS 3.2 mg/dL (2.5-4.9); POTASSIUM 4.4 mmol/L (3.5-5.1)
[2023-08-05] VITALS (17 sets, daily range): BP systolic 97–146; BP diastolic 50–96; TEMP 97.6–98.7; O2SAT 90–100
[2023-08-05 07:13] LABS: BASOPHILS # (AUTO) 0.1 K/uL (0.0-0.2); BASOPHILS % (AUTO) 0.6 % (0.0-2.0); EOSINOPHILS # (AUTO) 1.6 K/uL (0.0-0.7); HEMATOCRIT 22 % (39-51); HEMOGLOBIN 7.2 g/dL (13.5-17.5); LYMPHOCYTES # (AUTO) 1.2 K/uL (0.8-4.8); LYMPHOCYTES % (AUTO) 11.7 % (20.0-44.0); MEAN CORPUSCULAR HEMOGLOBIN 27 PG (26.0-33.0); MEAN CORPUSCULAR HGB CONC 33 g/dl (31.0-36.0); MEAN CORPUSCULAR VOLUME 82 fL (80-96); MONOCYTES # (AUTO) 0.8 K/uL (0.1-1.30); MONOCYTES % (AUTO) 7.7 % (2.0-12.0); NEUTROPHILS # (AUTO) 6.7 K/uL (1.8-8.9); PLATELET COUNT (AUTO) 690 K/uL (150-450); RED BLOOD CELL COUNT(AUTO) 2.66 MIL/uL (4.5-6.0); RED CELL DISTRIBUTION WIDTH 17.9 % (11.5-15.0); WHITE BLOOD COUNT (AUTO) 10.4 K/uL (4.3-11.0)
[2023-08-05 07:30] LABS: CALCIUM, SERUM 8.4 mg/dL (8.5-10.1); CREATININE 1.1 mg/dL (0.6-1.3); MAGNESIUM 2.1 mg/dL (1.8-2.4); PHOSPHORUS 3.7 mg/dL (2.5-4.9); POTASSIUM 4.3 mmol/L (3.5-5.1)
[2023-08-06] VITALS (8 sets, daily range): BP systolic 125–132; BP diastolic 56–77; TEMP 97.9–98.2; O2SAT 100
[2023-08-06] MEDS: ACETAMINOPHEN ES 500 MG TABLET GT PRN (02:58)
== END 2023-08-06 11:00 | DRG 300 ==
LOC: ER 18:07 → MED 21:05 → TELE 22:07
PROVIDERS: ADMIT Internal Medicine Nephrology; ATTEND Internal Medicine Nephrology
PROC: 5A1955Z Respiratory Ventilation, Greater than 96 Consecutive Hours (ICD-10-PCS; principal; 2023-07-25)
PROC: 05H933Z Insertion of Infusion Device into Right Brachial Vein, Percutaneous Approach (ICD-10-PCS; 2023-07-30)
PROC: 30233N1 Transfusion of Nonautologous Red Blood Cells into Peripheral Vein, Percutaneous Approach (ICD-10-PCS; 2023-08-05)
DX: E11.52 Type 2 diabetes mellitus with diabetic peripheral angiopathy with gangrene (principal); G93.40 Encephalopathy, unspecified; I96 Gangrene, not elsewhere classified; L03.115 Cellulitis of right lower limb; J96.10 Chronic respiratory failure, unspecified whether with hypoxia or hypercapnia; N39.0 Urinary tract infection, site not specified; Z99.11 Dependence on respirator [ventilator] status; R65.10 Systemic inflammatory response syndrome (SIRS) of non-infectious origin without acute organ dysfunction; L97.309 Non-pressure chronic ulcer of unspecified ankle with unspecified severity; N17.9 Acute kidney failure, unspecified; M86.171 Other acute osteomyelitis, right ankle and foot; E11.69 Type 2 diabetes mellitus with other specified complication; E11.621 Type 2 diabetes mellitus with foot ulcer; I12.9 Hypertensive chronic kidney disease with stage 1 through stage 4 chronic kidney disease, or unspecified chronic kidney disease; I25.10 Atherosclerotic heart disease of native coronary artery without angina pectoris; N18.9 Chronic kidney disease, unspecified; E11.22 Type 2 diabetes mellitus with diabetic chronic kidney disease; Z20.822 Contact with and (suspected) exposure to COVID-19; Z74.01 Bed confinement status; Z93.0 Tracheostomy status; Z93.1 Gastrostomy status; R13.10 Dysphagia, unspecified; L97.519 Non-pressure chronic ulcer of other part of right foot with unspecified severity; L89.90 Pressure ulcer of unspecified site, unspecified stage; D75.839 Thrombocytosis, unspecified; D64.9 Anemia, unspecified; E78.5 Hyperlipidemia, unspecified; F20.9 Schizophrenia, unspecified; I69.398 Other sequelae of cerebral infarction; Z79.4 Long term (current) use of insulin; Z79.82 Long term (current) use of aspirin; Z79.84 Long term (current) use of oral hypoglycemic drugs; Z79.899 Other long term (current) drug therapy; Z87.01 Personal history of pneumonia (recurrent); M62.50 Muscle wasting and atrophy, not elsewhere classified, unspecified site; K21.9 Gastro-esophageal reflux disease without esophagitis; M62.40 Contracture of muscle, unspecified site; Z79.51 Long term (current) use of inhaled steroids; E11.622 Type 2 diabetes mellitus with other skin ulcer; Z89.411 Acquired absence of right great toe; L89.890 Pressure ulcer of other site, unstageable; I77.1 Stricture of artery
CPT/HCPCS: 31720; 36410; 36415; 71045-TC; 73600-TC; 73660-TC; 80048-TC; 80202-TC; 82607-TC; 82728-TC; 82962-TC; 83540-TC; 83605-TC; 83735-TC; 84100-TC; 85025-TC; 85652-TC; 85730-TC; 86140-TC; 86850-TC; 87040-TC; 87081-TC; 94002-TC; 94003-TC; 94760-TC; 94761-TC; 94762-TC; 94799-TC; 99082-TC; A4223; A4623; A6403; A7526; G0378; J0692; J1815; J1953; J2060; J2405; J2543; J2765; J3370; J7030; J7050; J7060; J8597; P9016; Q0162; Q9967